=== PATIENT | female | born 1940 | race Caucasian/White ===

== ENCOUNTER 2017-03-02 12:04 | Emergency (ER) | payer OTHER ==
[~2017-03-02] VITALS: Ht 152.4 cm; Wt 62.1 kg
[~2017-03-02 12:04] MED LIST: ACET-1256 PO; AMLO-110 PO; ASPI-560 PO; CLC100 PO; CLX20 PO; CRAN1CAP15 PO; ERGO500037 PO; FSM70 PO; PSYL48.58 PO; SIMV20TA2 PO; TIMO0.2534 OPB; TRVOPS OPB
[2017-03-02 12:09] VITALS: TEMP 36.6; Ht 152.4 cm; Wt 62.1 kg
[2017-03-02] MEDS ORDERED: DOCU100C31 PO (12:38)
[2017-03-02] MEDS ORDERED: TIMO0.5S35 OPB (12:38)
[2017-03-02] MEDS ORDERED: TRAV0.00 OPB (12:38)
[2017-03-02] MEDS ORDERED: ALEN70TA2 PO (12:38)
--- NOTE | 2017-03-02 13:08 | DIAGNOSTIC IMAGING REPORT ---
L-SPINE MIN 4 VIEWS ROUTINE CLINICAL HISTORY: Low back pain status post trauma COMPARISON STUDY: CT scan dated 10/31/2010 FINDINGS: The bones are osteopenic. There are 5 lumbar type vertebral bodies present. There is marked disc space narrowing at the L5-S1 level. There are no subluxations. There is a superior endplate L1 compression deformity which has occurred since the prior 2010 CT scan. IMPRESSION: 1. Osteopenia 2. Mild superior endplate L1 compression fracture which has occurred since the prior 2010 study 2. Marked degenerative changes at the L5-S1 level. Electronically signed by: Emerson Payton M.D. 03/02/2017 1:07 PM Dictated Date/Time: 03/02/2017 1:05 PM
--- NOTE | 2017-03-02 13:16 | EMERGENCY ROOM VISIT NOTE ---
History Report prepared by Sabina: Yolanda Lawrence Under the Supervision of: Dr. Fernando Mahan M.D. First contact with patient: 12:17 Chief Complaint: BACK PAIN Stated Complaint: BACK PAIN, FELL History of Present Illness The patient is a 77 year old female who presents to the Emergency Room with complaints of constant lower back pain secondary to a fall occurring yesterday evening. The patient tripped yesterday and fell. She denies hitting her head or LOC. She has been experiencing lower back pain since this incident. She has been able to walk and states that her pain has slightly improved today. She is able to bend forward. The patient's pain is worse on the right side. She rates her pain as an 8/10 in severity. She has been putting Bengay on her back. The patient denies any other injury. She denies weakness, numbness, and urinary symptoms. Source of History: patient Onset: yesterday Position: back (lower) Symptom Intensity: 8/10 Timing: constant Modifying Factors (Relieving): other (Bengay) Associated Symptoms: No LOC, No headache, No urinary symptoms, No weakness, No numbness Review of Systems All systems have been listed, reviewed, and are negative other than those previously mentioned. Please see Additional Medical History Sheet. Past Medical & Surgical Medical Problems: (1) CVA (cerebral vascular accident) (2) Dyslipidemia (3) HTN (hypertension) (4) Osteoporosis Surgical Problems: (1) H/O: hysterectomy (2) History of appendectomy Family History Non-pertinent due to advanced age. Social History Smoking Status: Never Smoker Smokeless Tobacco Use: No Alcohol Use: none Occupation Status: unemployed Current/Historical Medications Scheduled Alendronate Sodium (Fosamax), 70 MG PO WK Aspirin (Ecotrin), 325 MG PO DAILY Docusate Sodium (Docusate Sodium), 200 MG PO DAILY Ergocalciferol (Vitamin D 12285 Unit), 50,000 UNIT PO WK Psyllium (Metamucil Original Textur), 1 DOSE PO DAILY Timolol Maleate (Ophth) (Timoptic), 1 DROPS OPB BID Travoprost (Travatan Z), 1 DROPS OPB HS Scheduled PRN Ibuprofen Tab (Motrin), 600 MG PO Q6H PRN for Pain Allergies Coded Allergies: No Known Allergies (Unverified , 10/31/10) Physical Exam Vital Signs Date Time Temp Pulse Resp B/P (MAP) Pulse Ox O2 Delivery O2 Flow Rate FiO2 03/02/17 13:45 58 18 140/79 96 Room Air 03/02/17 12:09 36.6 62 20 30/80 95 Room Air Physical Exam GENERAL: Patient awake, alert, oriented x 3. Patient follows commands. Patient does not appear toxic. Patient is adequately hydrated and well- nourished. SKIN: No erythema, pallor, cyanosis or rash HEENT: Normal head, pupils equal, reactive to light and accommodation. LUNGS: Clear to auscultation. No wheezes, no rales, no rhonchi. HEART: No murmurs. No gallops. No rubs ABDOMEN: No masses, no rebound, no hepatomegaly or splenomegaly. BACK: Vague tenderness in saji-lumbar area, no break in skin, no ecchymosis, no deformity seen. Patient is able to bend over. EXTREMITIES: No signs of trauma. No pedal or pretibial edema. No calf or thigh tenderness. NEUROLOGIC: Cranial nerves II-XII within normal limits. No gross motor sensory function deficits. Medical Decision & Procedures ER Provider Diagnostic Interpretation: Radiology results as stated below per my review and radiologist interpretation: L-SPINE MIN 4 VIEWS ROUTINE CLINICAL HISTORY: Low back pain status post trauma COMPARISON STUDY: CT scan dated 10/31/2010 FINDINGS: The bones are osteopenic. There are 5 lumbar type vertebral bodies present. There is marked disc space narrowing at the L5-S1 level. There are no subluxations. There is a superior endplate L1 compression deformity which has occurred since the prior 2010 CT scan. IMPRESSION: 1. Osteopenia 2. Mild superior endplate L1 compression fracture which has occurred since the prior 2010 study 2. Marked degenerative changes at the L5-S1 level. Electronically signed by: Emerson Payton M.D. 03/02/2017 1:07 PM Dictated Date/Time: 03/02/2017 1:05 PM Medications Administered Medications (Trade) Dose Ordered Sig/Lizet Route Start Time Stop Time Status Last Admin Dose Admin Ibuprofen (Motrin Tab) 600 mg NOW STAT PO 03/02/17 13:22 03/02/17 13:24 DC 03/02/17 13:46 600 MG ED Course 1217: Past medical records reviewed. The patient was evaluated in room A9B. A complete history and physical examination was performed. 1318: I reassessed the patient at this time. She is feeling better and resting comfortably. I discussed the results and treatment plan with the patient. I answered all pertaining questions that she had. She expressed understanding and verbalized agreement. The patient will be discharged home. 1322: Ibuprofen 600 mg PO Medical Decision Nurses notes reviewed. Medical history sheet reviewed. Differential diagnosis includes but is not limited to: fracture, subluxation, contusion, muscular strain/spasm. Patient has some tenderness on palpation over the lumbar spine. There are no deformities. X-rays were obtained revealing a compression fracture of L1. The patient has no vomiting or nausea. The fall occurred yesterday and she had she feels better today. I do not believe she requires a surgical intervention. The patient was encouraged to return if she is unable to move her bowels. She is currently on Colace. She also occasionally uses a laxative. The patient was given tramadol here and will continue that medication at home as needed. Medication Reconcilliation Current Medication List: was personally reviewed by me Blood Pressure Screening Patient's blood pressure: Elevated blood pressure Blood pressure disposition: Elevated BP felt to be situational Impression Primary Impression: Lumbar compression fracture Scribe Attestation The scribe's documentation has been prepared under my direction and personally reviewed by me in its entirety. I confirm that the note above accurately reflects all work, treatment, procedures, and medical decision making performed by me. Departure Information Dispostion Home / Self-Care Prescriptions Ibuprofen Tab (MOTRIN) 600 Mg Tab 600 MG PO Q6H Y for Pain, #20 TAB Prov: Fernando Mahan M.D. 03/02/17 Referrals Prabhjot Santiago M.D. (PCP) Forms HOME CARE DOCUMENTATION FORM, IMPORTANT VISIT INFORMATION Patient Instructions My [facility] [place] [employer] Additional Instructions Apply heat intermittently to your lower back of the next few days. 650 mg of Tylenol every 4 hours as needed for [id number] pain. 600 mg of Ibuprofen every 6 hours as needed for moderate to severe pain. Follow-up with your family physician this coming . Return here sooner if you're unable to move your bowels or if you begin vomiting. Problem Qualifiers Primary Impression: Lumbar compression fracture Encounter type: initial encounter Lumbar vertebra fracture level: L1 Fracture type: closed Qualified Codes: S32.010A - Wedge compression fracture of first lumbar vertebra, initial encounter for closed fracture
[2017-03-02] MEDS ORDERED: IBUPROFEN 600 MG TAB PO STA (13:22)
[2017-03-02] MEDS ORDERED: IBUP-1427 PO (13:24)
[2017-03-02 13:45] VITALS: BP 140/79; PULSE 58; O2SAT 96
== END 2017-03-02 14:09 | disposition home or self-care (01) ==
LOC: C.EDB 12:06 → C.EDA 14:09
DX: S32.019A Unspecified fracture of first lumbar vertebra, initial encounter for closed fracture (principal); W01.0XXA Fall on same level from slipping, tripping and stumbling without subsequent striking against object, initial encounter; I10 Essential (primary) hypertension; E78.5 Hyperlipidemia, unspecified; M81.0 Age-related osteoporosis without current pathological fracture; Z86.73 Personal history of transient ischemic attack (TIA), and cerebral infarction without residual deficits; Z90.710 Acquired absence of both cervix and uterus; Z98.890 Other specified postprocedural states; Z79.82 Long term (current) use of aspirin; Z79.899 Other long term (current) drug therapy

== ENCOUNTER → 2017-07-27 | Day surgery (SDC) | payer OTHER ==
[~2017-07-27] VITALS: Ht 147.3 cm; Wt 54.5 kg
[~2017-07-27] MED LIST changes: -ACET-1256 PO; -AMLO-110 PO; -CLC100 PO; -CLX20 PO; -CRAN1CAP15 PO; -ERGO500037 PO; -FSM70 PO; +FURO-85 PO; +LISI10TA PO; +MULT1CHW39 PO; +PRENTAB44 PO; -PSYL48.58 PO; +RANI150T85 PO; +SERT50TA PO; -SIMV20TA2 PO; +SODIUM CHLORIDE 0.9% 500ML 500 ML IV ONE; -TIMO0.2534 OPB; +TIMO0.5S35 OPB; +TRAV0.00 OPB; -TRVOPS OPB
--- NOTE | 2017-07-27 11:14 | Endo History and Physical ---
History & Physical Date of Service: Jul 27, 2017. Chief Complaint: Unintentional weight loss, Abnormal CT scan Referring Physician: JENY Cardona History of Present Illness 77 yo CF who presents for EGD secondary to unintentional weight loss and abnormal CT scan abdomen. Past Surgical History Hx Cardiac Surgery: No Hx Internal Defibrillator: No Hx Pacemaker: No Hx Abdominal Surgery: Yes (APPY) Hx of Implantable Prosthesis: No Hx Post-Op Nausea and Vomiting: No Hx Cancer Surgery: No Hx Thoracic Surgery: No Hx Orthopedic: No Hx Urinary Tract Surgery: No Family History Colon CA Social History Smoking Status: Former Smoker Hx Substance Use: No Hx Alcohol Use: No Allergies Uncoded Allergies: WILL BRING LIST, UNKOWN (Allergy, Unknown, PT WILL BRING LIST OF ALLERGIES , ? KNOW AT TIME OF INTERVIEW, 06/26/17) Current Medications Reported Home Medications Medications Dose Route/Sig Max Daily Dose Days Date Category Zoloft (Sertraline HCl) 50 Mg Tab 50 Mg PO HS 07/19/17 Reported Multivitamin Gummies Wome (Multiple Vitamins W/ Minerals) 1 Chw Chw 1 Dose PO QAM 06/26/17 Reported Complete ( Vit W/ Ferrous Fumara) 1 Tab Tab 1 Tab PO QAM 06/26/17 Reported Zantac (Ranitidine HCl) 150 Mg Tab 150 Mg PO DAILY PRN 06/26/17 Reported Prinivil (Lisinopril) 10 Mg Tab 10 Mg PO QAM 06/26/17 Reported Lasix (Furosemide) 20 Mg Tab 20 Mg PO QAM 06/26/17 Reported Travatan Z (Travoprost) 0.004 % Jose M 1 Drops OPB HS 03/02/17 Reported Timoptic (Timolol Maleate (Ophth)) 0.5 % Alma Rosa 1 Drops OPB BID 30 03/02/17 Reported Ecotrin (Aspirin) 325 Mg Tab 325 Mg PO QAM 02/26/16 Reported Vital Signs Weight (Kilograms): 0 Height (Feet): 5 Height (Inches): 4 Physical Exam General Appearance: WD/WN, no apparent distress Respiratory/Chest: Auscultation: breath sounds normal Cardiovascular: Heart Auscultation: RRR Abdomen: Bowel Sounds: normal Inspection & Palpation: soft, non-distended, no tenderness, guarding & rebound Assessment and Plan Assessment: 77 yo CF who presents for EGD secondary to unintentional weight loss and abnormal CT scan abdomen. Plan: Proceed with EGD.
[2017-07-27 11:40] VITALS: Ht 147.3 cm; Wt 54.5 kg
--- NOTE | 2017-07-27 12:24 | GI REPORT ---
Procedure Date: 07/27/2017 11:40 AM THIS REPORT HAS BEEN AMENDED Addendum Number: 1 Addendum Date: 07/27/2017 12:26:30 PM Will Add Protonix 40mg by mouth each morning 1/2 hour prior to breakfast. Procedure: Upper GI endoscopy Indications: Melena, Weight loss Medicines: Monitored Anesthesia Care Complications: No immediate complications. Estimated Blood Loss: Estimated blood loss: none. Procedure: Pre-Anesthesia Assessment: - Prior to the procedure, a History and Physical was performed, and patient medications and allergies were reviewed. The patient's tolerance of previous anesthesia was also reviewed. The risks and benefits of the procedure and the sedation options and risks were discussed with the patient. All questions were answered, and informed consent was obtained. Prior Anticoagulants: The patient has taken aspirin, last dose was 1 day prior to procedure. ASA Grade Assessment: III - A patient with severe systemic disease. After reviewing the risks and benefits, the patient was deemed in satisfactory condition to undergo the procedure. After obtaining informed consent, the endoscope was passed under direct vision. Throughout the procedure, the patient's blood pressure, pulse, and oxygen saturations were monitored continuously. The scope was introduced through the mouth, and advanced to the second part of duodenum. The upper GI endoscopy was accomplished without difficulty. The patient tolerated the procedure well. Findings: A moderate Schatzki ring (acquired) was found at the gastroesophageal junction. A TTS dilator was passed through the scope. Dilation with a 15-16.5-18 mm balloon dilator was performed to 18 mm. The dilation site was examined and showed moderate improvement in luminal narrowing. A small hiatal hernia was present. Localized moderate inflammation characterized by erythema was found in the gastric antrum. Biopsies were taken with a cold forceps for histology. Two non-bleeding superficial gastric ulcers with no stigmata of bleeding were found in the gastric antrum. The largest lesion was 3 mm in largest dimension. The examined duodenum was normal. Impression: - Moderate Schatzki ring. Dilated. - Small hiatal hernia. - Gastritis. Biopsied. - Non-bleeding gastric ulcers with no stigmata of bleeding. - Normal examined duodenum. Recommendation: - Resume previous diet. - Continue present medications. - Await pathology results. - Return to primary care physician as previously scheduled. Donaldo Tolliver, DO 07/27/2017 12:23:38 PM This report has been signed electronically. Note Initiated On: 07/27/2017 11:40 AM I attest to the content of the Intraoperative Record and orders documented therein, exceptions below Donaldo Tolliver, DO 07/27/2017 12:26:48 PM This report has been signed electronically.
--- NOTE | 2017-07-27 12:29 | Discharge Instructions ---
Endoscopy Patient Instructions Date / Procedure(s) Performed Jul 27, 2017. EGD Allergy Information Uncoded Allergies: WILL BRING LIST, UNKOWN (Allergy, Unknown, PT WILL BRING LIST OF ALLERGIES , ? KNOW AT TIME OF INTERVIEW, 06/26/17) Discharge Date / Findings Jul 27, 2017. Gastric ulcer Gastritis s/p biopsies Hiatal hernia Schatzki's Ring s/p dilation Medication Instructions Stopped Medication(s): 325 mg Aspirin last taken on 07/26/17 1) Start Protonix 40mg by mouth each morning 1/2 hour prior to breakfast. 2) OK to resume all medications today as prescribed Reported Home Medications Medications Dose Route/Sig Max Daily Dose Days Date Category Zoloft (Sertraline HCl) 50 Mg Tab 50 Mg PO HS 07/19/17 Reported Multivitamin Gummies Wome (Multiple Vitamins W/ Minerals) 1 Chw Chw 1 Dose PO QAM 06/26/17 Reported Complete ( Vit W/ Ferrous Fumara) 1 Tab Tab 1 Tab PO QAM 06/26/17 Reported Zantac (Ranitidine HCl) 150 Mg Tab 150 Mg PO DAILY PRN 06/26/17 Reported Prinivil (Lisinopril) 10 Mg Tab 10 Mg PO QAM 06/26/17 Reported Lasix (Furosemide) 20 Mg Tab 20 Mg PO QAM 06/26/17 Reported Travatan Z (Travoprost) 0.004 % Jose M 1 Drops OPB HS 03/02/17 Reported Timoptic (Timolol Maleate (Ophth)) 0.5 % Alma Rosa 1 Drops OPB BID 30 03/02/17 Reported Ecotrin (Aspirin) 325 Mg Tab 325 Mg PO QAM 02/26/16 Reported Provider Instructions Activity Restrictions - No exercising or heavy lifting for 24 hours. - Do not drink alcohol the day of the procedure. - Do not drive a car or operate machinery until the day after the procedure. - Do not make any important decisions or sign important papers in 24 hours after the procedure. Following Day: - Return to full activity which may include returning to work/school. Diet Start your diet with liquids and light foods (jello, soup, juice, toast). Then eat your usual diet if not nauseated. Treatment For Common After Affects For mild abdominal pain, bloating, or excessive gas: - Rest - Eat lightly - Lie on right side Follow-Up Information Follow-up with Abiola Shen as scheduled Anesthesia Information What You Should Know You have had a procedure that required some medicine to reduce anxiety and discomfort. This treatment is called moderate sedation. After receiving the treatment, you may be sleepy, but you will be able to breathe on your own. The effects of the treatment may last for several hours. Follow these instructions along with Activity/Diet recommendations noted above: * Do NOT do anything where dizziness or clumsiness would be dangerous. * Rest quietly at home today, then you can be up and about tomorrow. * Have a responsible person stay with you the rest of today. * You may have had an I.V. today. If so, you may take the dressing off later today. Recommendations Call your doctor if: * Trouble breathing * Continuous vomiting for more than 24 hours * Temperature above 101 degrees * Severe abdominal pain or bloating * Pain not relieved by pain medicine ordered * There is increased drainage or redness from any incision * A large amount of rectal bleeding greater than 2-3 tablespoons. (If you had a polyp/s removed or have hemorrhoids, a small amount of blood - from the rectum is to be expected.) * You have any unanswered questions or concerns. IN THE EVENT OF A SERIOUS EMERGENCY, GO TO THE NEAREST EMERGENCY ROOM Your discharge instructions were prepared by provider Donaldo Tolliver. Patient Instructions Signature Page Elsie Clayton Patient (or Guardian) Signature/Date: I have read and understand the instructions given to me by my caregivers. Caregiver/RN/Doctor Signature/Date: The above-named patient and/or guardian has received patient instructions on this date. + Original Patient Signature Page (only) stays with chart. Please make copy for patient.
--- NOTE | 2017-07-27 12:38 | Anesthesiology Progress Note ---
Anesthesia Post Op Note Date & Time Jul 27, 2017 at 12:38 Vital Signs Pain Intensity: 0 Vital Signs Past 12 Hours Date Time Temp Pulse Resp B/P (MAP) Pulse Ox O2 Delivery O2 Flow Rate FiO2 07/27/17 12:33 56 20 159/87 (111) 98 Room Air 07/27/17 12:18 66 24 137/71 (93) 97 Room Air 07/27/17 11:24 36.6 63 16 147/95 (112) 96 Room Air Notes Mental Status: alert / awake / arousable, participated in evaluation Pt Amnestic to Procedure: Yes Nausea / Vomiting: adequately controlled Pain: adequately controlled Airway Patency, RR, SpO2: stable & adequate BP & HR: stable & adequate Hydration State: stable & adequate Anesthetic Complications: no major complications apparent
[2017-07-27 12:48] VITALS: BP 161/83; PULSE 57; O2SAT 98
== END | disposition home or self-care (01) ==
LOC: C.GI 10:29
PROVIDERS: ATTEND Internal Medicine
DX: R63.4 Abnormal weight loss (principal); K22.2 Esophageal obstruction; K25.9 Gastric ulcer, unspecified as acute or chronic, without hemorrhage or perforation; K44.9 Diaphragmatic hernia without obstruction or gangrene; Z80.0 Family history of malignant neoplasm of digestive organs; G47.33 Obstructive sleep apnea (adult) (pediatric); K21.9 Gastro-esophageal reflux disease without esophagitis; M19.90 Unspecified osteoarthritis, unspecified site; M81.0 Age-related osteoporosis without current pathological fracture; F32.9 Major depressive disorder, single episode, unspecified; F41.9 Anxiety disorder, unspecified; H40.9 Unspecified glaucoma; Z90.89 Acquired absence of other organs; Z87.891 Personal history of nicotine dependence; Z86.73 Personal history of transient ischemic attack (TIA), and cerebral infarction without residual deficits; Z79.82 Long term (current) use of aspirin

== ENCOUNTER → 2017-09-07 | Day surgery (SDC) | payer OTHER ==
[2017-09-05 09:34] VITALS: Ht 162.6 cm; Wt 54.5 kg
[~2017-09-07] VITALS: Ht 162.6 cm; Wt 54.5 kg
[~2017-09-07] MED LIST changes: +DOCU100C31 PO; +PANT40TA PO; +PSYL58.636 PO; -SODIUM CHLORIDE 0.9% 500ML 500 ML IV ONE; +TIMO-31 OPB; -TIMO0.5S35 OPB
--- NOTE | 2017-09-07 11:26 | Endo History and Physical ---
History & Physical Date of Service: September 07, 2017. Chief Complaint: dysphagia,history gastric ulcer Referring Physician: Dr. Edwardo Hua,[facility] History of Present Illness 77 yo CF who presents for EGD secondary to dysphagia and history of gastric ulcer. Past Surgical History Hx Cardiac Surgery: No Hx Internal Defibrillator: No Hx Pacemaker: No Hx Abdominal Surgery: Yes (APPY, HYSTER) Hx of Implantable Prosthesis: No Hx Post-Op Nausea and Vomiting: No Hx Cancer Surgery: No Hx Thoracic Surgery: No Hx Orthopedic: No Hx Urinary Tract Surgery: No Family History Colon CA Social History Smoking Status: Former Smoker Hx Substance Use: No Hx Alcohol Use: No Allergies Uncoded Allergies: SOAPS (Allergy, Unknown, RASH, 09/05/17) Current Medications Reported Home Medications Medications Dose Route/Sig Max Daily Dose Days Date Category Protonix (Pantoprazole Sodium) 40 Mg Tab 1 Tab PO DAILY 30 09/05/17 Reported Metamucil Fiber (Psyllium) 51.7 % Jordin 1 Pkt PO DAILY 09/05/17 Reported Docusate Sodium 100 Mg Cap 2 Cap PO HS 30 09/05/17 Reported Zoloft (Sertraline HCl) 50 Mg Tab 50 Mg PO HS 07/19/17 Reported Multivitamin Gummies Wome (Multiple Vitamins W/ Minerals) 1 Chw Chw 1 Dose PO QAM 06/26/17 Reported Complete ( Vit W/ Ferrous Fumara) 1 Tab Tab 1 Tab PO QAM 06/26/17 Reported Zantac (Ranitidine HCl) 150 Mg Tab 150 Mg PO DAILY PRN 06/26/17 Reported Prinivil (Lisinopril) 10 Mg Tab 10 Mg PO QAM 06/26/17 Reported Lasix (Furosemide) 20 Mg Tab 20 Mg PO QAM 06/26/17 Reported Travatan Z (Travoprost) 0.004 % Jose M 1 Drops OPB HS 03/02/17 Reported Timoptic (Timolol Maleate (Ophth)) 0.5 % Alma Rosa 1 Drops OPB BID 30 03/02/17 Reported Ecotrin (Aspirin) 325 Mg Tab 325 Mg PO QAM 02/26/16 Reported Vital Signs Weight (Kilograms): 54.55 Height (Feet): 5 Height (Inches): 4 Date Time Temp Pulse Resp B/P (MAP) Pulse Ox O2 Delivery O2 Flow Rate FiO2 09/07/17 10:53 36.6 57 16 146/86 (106) 96 Room Air Physical Exam General Appearance: WD/WN, no apparent distress Respiratory/Chest: Auscultation: breath sounds normal Cardiovascular: Heart Auscultation: RRR Abdomen: Bowel Sounds: normal Inspection & Palpation: soft, non-distended, no tenderness, guarding & rebound Assessment and Plan Assessment: 77 yo CF who presents for EGD secondary to dysphagia and history of gastric ulcer. Plan: Proceed with EGD.
--- NOTE | 2017-09-07 11:49 | Discharge Instructions ---
Endoscopy Patient Instructions Date / Procedure(s) Performed September 07, 2017. EGD Allergy Information Uncoded Allergies: SOAPS (Allergy, Unknown, RASH, 09/05/17) Discharge Date / Findings September 07, 2017. Schatzki's ring s/p dilation Hiatal hernia Medication Instructions Stopped Medication(s): took ASA yesterday OK to resume all medications today as prescribed Reported Home Medications Medications Dose Route/Sig Max Daily Dose Days Date Category Protonix (Pantoprazole Sodium) 40 Mg Tab 1 Tab PO DAILY 30 09/05/17 Reported Metamucil Fiber (Psyllium) 51.7 % Jordin 1 Pkt PO DAILY 09/05/17 Reported Docusate Sodium 100 Mg Cap 2 Cap PO HS 30 09/05/17 Reported Zoloft (Sertraline HCl) 50 Mg Tab 50 Mg PO HS 07/19/17 Reported Multivitamin Gummies Wome (Multiple Vitamins W/ Minerals) 1 Chw Chw 1 Dose PO QAM 06/26/17 Reported Complete ( Vit W/ Ferrous Fumara) 1 Tab Tab 1 Tab PO QAM 06/26/17 Reported Zantac (Ranitidine HCl) 150 Mg Tab 150 Mg PO DAILY PRN 06/26/17 Reported Prinivil (Lisinopril) 10 Mg Tab 10 Mg PO QAM 06/26/17 Reported Lasix (Furosemide) 20 Mg Tab 20 Mg PO QAM 06/26/17 Reported Travatan Z (Travoprost) 0.004 % Jose M 1 Drops OPB HS 03/02/17 Reported Timoptic (Timolol Maleate (Ophth)) 0.5 % Alma Rosa 1 Drops OPB BID 30 03/02/17 Reported Ecotrin (Aspirin) 325 Mg Tab 325 Mg PO QAM 02/26/16 Reported Provider Instructions Activity Restrictions - No exercising or heavy lifting for 24 hours. - Do not drink alcohol the day of the procedure. - Do not drive a car or operate machinery until the day after the procedure. - Do not make any important decisions or sign important papers in 24 hours after the procedure. Following Day: - Return to full activity which may include returning to work/school. Diet Start your diet with liquids and light foods (jello, soup, juice, toast). Then eat your usual diet if not nauseated. Treatment For Common After Affects For mild abdominal pain, bloating, or excessive gas: - Rest - Eat lightly - Lie on right side Follow-Up Information Follow-up with Dr. Edwardo Hua,[facility] as scheduled Anesthesia Information What You Should Know You have had a procedure that required some medicine to reduce anxiety and discomfort. This treatment is called moderate sedation. After receiving the treatment, you may be sleepy, but you will be able to breathe on your own. The effects of the treatment may last for several hours. Follow these instructions along with Activity/Diet recommendations noted above: * Do NOT do anything where dizziness or clumsiness would be dangerous. * Rest quietly at home today, then you can be up and about tomorrow. * Have a responsible person stay with you the rest of today. * You may have had an I.V. today. If so, you may take the dressing off later today. Recommendations Call your doctor if: * Trouble breathing * Continuous vomiting for more than 24 hours * Temperature above 101 degrees * Severe abdominal pain or bloating * Pain not relieved by pain medicine ordered * There is increased drainage or redness from any incision * A large amount of rectal bleeding greater than 2-3 tablespoons. (If you had a polyp/s removed or have hemorrhoids, a small amount of blood - from the rectum is to be expected.) * You have any unanswered questions or concerns. IN THE EVENT OF A SERIOUS EMERGENCY, GO TO THE NEAREST EMERGENCY ROOM Your discharge instructions were prepared by provider Donaldo Tolliver. Patient Instructions Signature Page Elsie Clayton Patient (or Guardian) Signature/Date: I have read and understand the instructions given to me by my caregivers. Caregiver/RN/Doctor Signature/Date: The above-named patient and/or guardian has received patient instructions on this date. + Original Patient Signature Page (only) stays with chart. Please make copy for patient.
--- NOTE | 2017-09-07 12:10 | GI REPORT ---
Patient Name: Elsie Clayton Procedure Date: 09/07/2017 11:31 AM Date of : 1940 Admit Type: Outpatient Age: 77 Gender: Female Attending MD: Donaldo Tolliver DO Procedure: Upper GI endoscopy Providers: Donaldo Tolliver DO Referring MD: Abiola Shen Indications: Dysphagia, Follow-up of acute gastric ulcer Medicines: Monitored Anesthesia Care Complications: No immediate complications. Estimated Blood Loss: Estimated blood loss: none. Procedure: Pre-Anesthesia Assessment: - Prior to the procedure, a History and Physical was performed, and patient medications and allergies were reviewed. The patient's tolerance of previous anesthesia was also reviewed. The risks and benefits of the procedure and the sedation options and risks were discussed with the patient. All questions were answered, and informed consent was obtained. Prior Anticoagulants: The patient has taken aspirin, last dose was 1 day prior to procedure. ASA Grade Assessment: III - A patient with severe systemic disease. After reviewing the risks and benefits, the patient was deemed in satisfactory condition to undergo the procedure. After obtaining informed consent, the endoscope was passed under direct vision. Throughout the procedure, the patient's blood pressure, pulse, and oxygen saturations were monitored continuously. The scope was introduced through the mouth, and advanced to the second part of duodenum. The upper GI endoscopy was accomplished without difficulty. The patient tolerated the procedure well. Findings: A mild Schatzki ring (acquired) was found at the gastroesophageal junction. A TTS dilator was passed through the scope. Dilation with an 18-19-20 mm balloon dilator was performed to 20 mm. The dilation site was examined and showed complete resolution of luminal narrowing. A small hiatal hernia was present. The examined duodenum was normal. Impression: - Mild Schatzki ring. Dilated. - Small hiatal hernia. - Normal examined duodenum. - No specimens collected. Recommendation: - Resume previous diet. - Continue present medications. - Repeat upper endoscopy PRN for retreatment. - Return to primary care physician as previously scheduled. Donaldo Tolliver DO 09/07/2017 12:10:07 PM This report has been signed electronically. Note Initiated On: 09/07/2017 11:31 AM Number of Addenda: 0 I attest to the content of the Intraoperative Record and orders documented therein, exceptions below {[id number]}
[2017-09-07 12:16] VITALS: BP 174/83; PULSE 60; O2SAT 99
--- NOTE | 2017-09-07 13:06 | Anesthesiology Progress Note ---
Anesthesia Post Op Note Date & Time September 07, 2017 at 13:06 Vital Signs Pain Intensity: 0 Vital Signs Past 12 Hours Date Time Temp Pulse Resp B/P (MAP) Pulse Ox O2 Delivery O2 Flow Rate FiO2 09/07/17 12:16 60 18 174/83 (113) 99 Room Air 09/07/17 12:01 63 18 170/80 (110) 96 Room Air 09/07/17 11:46 60 16 123/64 (83) 96 Room Air 09/07/17 10:53 36.6 57 16 146/86 (106) 96 Room Air Notes Mental Status: alert / awake / arousable, participated in evaluation Pt Amnestic to Procedure: Yes Nausea / Vomiting: adequately controlled Pain: adequately controlled Airway Patency, RR, SpO2: stable & adequate BP & HR: stable & adequate Hydration State: stable & adequate Anesthetic Complications: no major complications apparent
== END | disposition home or self-care (01) ==
LOC: C.GI 10:21
PROVIDERS: ATTEND Internal Medicine
DX: K22.2 Esophageal obstruction (principal); K44.9 Diaphragmatic hernia without obstruction or gangrene; R13.10 Dysphagia, unspecified; Z80.0 Family history of malignant neoplasm of digestive organs; Z87.891 Personal history of nicotine dependence; G47.33 Obstructive sleep apnea (adult) (pediatric); I10 Essential (primary) hypertension; E78.5 Hyperlipidemia, unspecified; K21.9 Gastro-esophageal reflux disease without esophagitis; M19.90 Unspecified osteoarthritis, unspecified site; Z86.73 Personal history of transient ischemic attack (TIA), and cerebral infarction without residual deficits; F41.9 Anxiety disorder, unspecified; F32.9 Major depressive disorder, single episode, unspecified; H40.9 Unspecified glaucoma

== ENCOUNTER → 2017-09-14 | Outpatient (CLI) | payer OTHER ==
[~2017-09-14] MED LIST changes: +LIDOCAINE HCL 2% 2 ML VIAL (20MG/ML) ONE; +PROPOFOL IV EMULSION 10 MG/ML 20 ML VIAL ONE
--- NOTE | 2017-09-14 16:02 | DIAGNOSTIC IMAGING REPORT ---
ABD/PELVIS ORAL CONT ONLY CLINICAL HISTORY: 77 years-old Female presenting with LOSS OF Appetite, unintentional WEIGHT LOSS. TECHNIQUE: Multidetector CT of the abdomen and pelvis was performed without the use of intravenous contrast. IV contrast: None. A dose lowering technique was used consistent with the principles of ALARA (as low as reasonably achievable). COMPARISON: 10/31/2010. CT DOSE (mGy.cm): The estimated cumulative dose is 258.96 mGy.cm. 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 Lung bases: Mosaic attenuation at the lung bases suggest small airways disease. Limited nodular opacities in the right middle lobe. These are new since 2010. Normal heart size. Coronary artery and aortic valve calcification. No pericardial or pleural effusion. Liver: Normal morphology. Normal density. Subcentimeter hypodensity noted in the right hepatic lobe, indeterminate but likely hepatic cyst or hamartoma. Biliary: No gross biliary ductal dilatation allowing for noncontrast technique. Normal gallbladder. Pancreas: Normal noncontrast appearance. Spleen: Normal noncontrast appearance. Adrenal glands: Normal noncontrast appearance. Kidneys and ureters: Normal noncontrast appearance. No nephrolithiasis. No hydronephrosis. Normal ureters. Bladder: Incompletely evaluated secondary to underdistention. Pelvic organs: Uterus surgically absent. No adnexal masses. Bowel: Diverticulosis of the sigmoid colon. No focal wall thickening or pericolonic fat infiltration. No bowel obstruction. Peritoneal cavity: No free fluid or intraperitoneal gas. Lymph nodes: No gross lymphadenopathy allowing for noncontrast technique. Vasculature: Atherosclerosis of the normal caliber abdominal aorta. Abdominal wall: Postsurgical changes of the midline anterior and from the local abdominal wall. Musculoskeletal: Degenerative changes of the spine. Osteopenia. Moderate compression deformity of L1 with approximately 50% anterior height loss. Slight retropulsion of the superior portion of the vertebral body resulting in mild effacement of the ventral spinal canal. IMPRESSION: 1. Nodular opacities in the right middle lobe, only partially visualized and new since 2010. Consider dedicated chest imaging as clinically appropriate. A chronic inflammatory or infectious etiology cannot be excluded. 2. Small airways disease. 3. Diverticulosis. No evidence of diverticulitis. 4. Osteopenia with age-indeterminate compression fracture of L1. This is new since 2010. Electronically signed by: Rafael Russo M.D. 09/14/2017 4:01 PM Dictated Date/Time: 09/14/2017 3:52 PM
== END | disposition home or self-care (01) ==
LOC: C.CTS 13:48
PROVIDERS: ATTEND Registered Nurse
DX: R63.0 Anorexia (principal); R63.4 Abnormal weight loss; K57.90 Diverticulosis of intestine, part unspecified, without perforation or abscess without bleeding; M85.88 Other specified disorders of bone density and structure, other site

== ENCOUNTER → 2017-09-21 | Outpatient (CLI) | payer OTHER ==
[~2017-09-21] MED LIST changes: -LIDOCAINE HCL 2% 2 ML VIAL (20MG/ML) ONE; +OPTIRAY 320 IV PRN; -PROPOFOL IV EMULSION 10 MG/ML 20 ML VIAL ONE
--- NOTE | 2017-09-21 11:22 | DIAGNOSTIC IMAGING REPORT ---
CT (CHEST) THORAX WITH CLINICAL HISTORY: 77 years-old Female presenting with R93.[address] of the [id number] Lung [id number], follow-up. TECHNIQUE: Multidetector CT imaging of the chest was performed after the administration of intravenous contrast. IV contrast: 120 mL of Optiray 320. A dose lowering technique was used consistent with the principles of ALARA (as low as reasonably achievable). COMPARISON: CT of abdomen pelvis from 09/14/2017. CT DOSE (mGy.cm): The estimated cumulative dose is 146.04 mGycm. 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 On soft tissue windows, normal thyroid and thoracic inlet. No axillary, supraclavicular, hilar, or mediastinal lymphadenopathy. Atherosclerosis of the aorta. Normal heart size. Coronary artery and aortic valve calcification. No pericardial or pleural effusion. Upper abdomen normal. On lung windows, trace pleural-parenchymal scarring at the lung apices. Redemonstration of irregular nodular opacities in the right middle lobe, which are primarily peripheral and randomly distributed. Additional focus of similar appearing irregular randomly distributed solid nodularity in the posterior segment of the right upper lobe. The largest discrete irregular nodule measures 9 mm (series 4 image 110). Calcified granuloma noted in the right lower lobe. Mosaic attenuation noted, which may suggest small airways disease. Solid peripheral 3 mm nodule in the left upper lobe (series 4 image 102). Central airways patent. On bone windows, degenerative changes of the spine. IMPRESSION: 1. Multifocal irregular nodules in the lung with a cluster noted in the right middle lobe, the posterior segment of the right upper lobe, and left upper lobe. An atypical infectious or inflammatory etiology is favored, however, given the discrete irregular 9 mm nodule in the right upper lobe, follow-up should be obtained. Please refer to below summary of Fleischner Society 2017 recommendations for follow-up of incidental CT nodules (H Bridget et al. Guidelines for management of incidental pulmonary nodules detected on CT images: From the Fleischner Society 2017. Radiology 2017; 284: 228-243.) SOLID NODULES Single nodule; size < 6 mm * Low risk patients: No routine follow-up * High risk patients: Optional CT at 12 months Single nodule; size 6-8 mm * Low risk patients: CT at 6-12 months, then consider CT at 18-24 months * High risk patients: CT at 6-12 months, then at 18-24 months Single nodule; size > 8 mm * Either low or high risk patients: Considered CT at 3 months, PET/CT, or tissue sampling Multiple nodules; size < 6 mm * Low risk patients: No routine follow up * High risk patients: Optional CT at 12 months Multiple nodules; size 6-8 mm * Low risk patients: CT at 3-6 months, then consider CT at 18-24 months * High risk patients: CT at 3-6 months, then at 18-24 months Multiple nodules; size > 8 mm * Low risk patients: CT at 3-6 months, then consider at 18-24 months * High risk patients: CT at 3-6 months, then at 18-24 months SUBSOLID NODULES Single ground-glass nodule * Nodule size < 6 mm: No routine follow-up * Nodule size > or = 6 mm: CT at 6-12 months to confirm persistence, then CT every 2 years until 5 years Single part-solid nodule * Nodule size < 6 mm: No routine follow-up * Nodules size > or = 6 mm: CT at 3-6 months to confirm persistence. If unchanged and solid component remains < 6 mm, annual CT should be performed for 5 years Multiple nodules * Nodule size < 6 mm: CT at 3-6 months. If stable, consider CT at 2 and 4 years. * Nodules size > or = 6 mm: CT at 3-6 months. Subsequent management based on the most suspicious nodule(s) NOTE: 1) These guidelines apply to incidental nodules. These guidelines do NOT apply to patients younger than 35 years, immunocompromised patients, or patients with cancer. 2) Risk categories: * Low risk patients: Minimal or absent history of smoking and/or other known risk factors * High risk patients: History of smoking, exposure to other carcinogens, emphysema, fibrosis, upper lobe location, family history of lung cancer, etc. 3) If a nodule up to 8 mm is partly solid or is ground glass, further follow-up is required after 24 months to exclude possible slow growing adenocarcinoma. Electronically signed by: Rafael Russo M.D. 09/21/2017 11:21 AM Dictated Date/Time: 09/21/2017 11:09 AM
== END | disposition home or self-care (01) ==
LOC: C.CTS 10:28
PROVIDERS: ATTEND Registered Nurse
DX: R91.1 Solitary pulmonary nodule (principal); R93.5 Abnormal findings on diagnostic imaging of other abdominal regions, including retroperitoneum

== ENCOUNTER → 2017-12-13 | Outpatient (CLI) | payer OTHER ==
[~2017-12-13] MED LIST changes: -OPTIRAY 320 IV PRN
--- NOTE | 2017-12-13 12:43 | DIAGNOSTIC IMAGING REPORT ---
CHEST CT WITH CONTRAST CT DOSE: 151.52 mGycm HISTORY: Follow-up LUNG NODULE TECHNIQUE: Multiaxial CT images of the chest were performed following the intravenous administration of contrast. A dose lowering technique was utilized adhering to the principles of ALARA. COMPARISON: Chest CT 09/21/2017. FINDINGS: The central airways are patent. No pleural effusions. No pneumothorax. Mild emphysema. Stable 3 mm subpleural nodule within the left upper lobe on image 106. Irregular nodule within the right upper lobe on image 110. Slightly decreased in size. This currently measures 7 mm, previous measuring 9 mm. Small cluster of tree-in-bud nodular opacities within the base of the right middle lobe has slightly improved. No suspicious lytic or blastic osseous lesions. No change in the old mild superior endplate compression deformity at T2, T3, T4. There is a 6 mm nodule within the right thyroid lobe. No mediastinal or hilar lymphadenopathy. Normal caliber thoracic aorta. Mildly tortuous descending thoracic aorta. The central pulmonary arteries are patent. The heart is borderline enlarged. The visualized liver, spleen, adrenal glands are unremarkable. IMPRESSION: 1. Slight decrease in size in the 7 mm irregular nodule within the right upper lobe. An additional [address] follow is recommended for further evaluation. 2. Slight improvement in the tree-in-bud nodular opacities within the base of the right middle lobe. This favors resolving inflammatory/infectious change. 3. Additional stable findings as described above. Electronically signed by: Orlando Guadarrama M.D. 12/13/2017 12:41 PM Dictated Date/Time: 12/13/2017 12:31 PM
== END | disposition home or self-care (01) ==
LOC: C.CTS 10:37
PROVIDERS: ATTEND Physician Assistant
DX: R91.1 Solitary pulmonary nodule (principal)

== ENCOUNTER 2020-08-03 17:39 | Observation (INO) ==
[2020-08-03] MEDS ORDERED: SODIUM CHLORIDE 0.9% 1000ML 1,000 ML IV ONE (19:20)
[2020-08-03] MEDS ORDERED: ACETAMINOPHEN 1,000 MG/100 ML VIAL IV STA (19:20)
--- NOTE | 2020-08-03 19:58 | XRay Report ---
XR chest 1V portable HISTORY: Atypical Chest Pain COMPARISON: Chest 06/13/2020. FINDINGS: The lungs are hyperexpanded with apical predominant emphysematous changes. There is levosco liosis of the thoracolumbar spine, unchanged. There is a tortuous thoracic aorta. The heart is mildly enlarged. No focal lung consolidations to suggest pneumonia. No evidence for pulmonary edema. The christal lamine are osteopenic. IMPRESSION: No significant change compared to the prior study. No acute process. ACT 112: Negative or not required by law. Electronically signed by: Orlando Guadarrama M.D. 08/03/2020 7:57 PM
[2020-08-03 20:12] LABS: Basophils # (auto) 0.01 K/uL (0-0.2); Basophils % (auto) 0.2 %; Eosinophils # (auto) 0.16 K/uL (0-0.5); Eosinophils % (auto) 2.8 %; Hematocrit (blood only) 39.6 % (37-47); Hemoglobin 13.5 g/dL (12.0-16.0); Immature Granulocytes # (auto) 0.01 K/uL (0.00-0.02); Immature Granulocytes % (auto) 0.2 %; Lymphocytes # (auto) 2.05 K/uL (1.2-3.4); Lymphocytes % (auto) 35.3 %; Mean Corpuscular Hemoglobin 29.9 pg (25-34); Mean Corpuscular Hgb Conc 34.1 g/dL (32-36); Mean Corpuscular Volume 87.6 fL (80-100); Mean Platelet Volume 9.9 fL (7.4-10.4); Monocytes # (auto) 0.39 K/uL (0.11-0.59); Monocytes % (auto) 6.7 %; Neutrophils # (auto) 3.18 K/uL (1.4-6.5); Neutrophils % (auto) 54.8 %; Platelet Count 266 K/uL (130-400); RDW Coefficient of Variation 12.7 % (11.5-14.5); RDW Standard Deviation 40.8 fL (36.4-46.3); Red Blood Count 4.52 M/uL (4.2-5.4)
[2020-08-03 20:29] LABS: Alanine Aminotransferase 19 U/L (12-78); Albumin Level 3.7 gm/dl (3.4-5.0); Aspartate Aminotransferase 20 U/L (15-37); BUN Creatinine Ratio 21.8 (10-20); Blood Urea Nitrogen 14 mg/dl (7-18); Calcium 8.7 mg/dl (8.5-10.1); Carbon Dioxide 29 mmol/L (21-32); Chloride 107 mmol/L (98-107); Est GFR (Non-African American) 83.7; Glucose 89 mg/dl (70-99); Lipase 216 U/L (73-393); Magnesium 2.1 mg/dl (1.8-2.4); Potassium 3.6 mmol/L (3.5-5.1); Sodium 140 mmol/L (136-145)
[2020-08-03 20:45] LABS: Albumin Globulin Ratio 1.2 (0.9-2); Alkaline Phosphatase 106 U/L (45-117); Bilirubin,Total 0.6 mg/dl (0.2-1); Globulin 3.2 gm/dl (2.5-4.0); Phosphorus 3.4 mg/dl (2.5-4.9); Thyroid Stimulating Hormone 0.768 uIu/ml (0.300-4.500); Total Protein 6.9 gm/dl (6.4-8.2); Troponin I 0.092 ng/ml (0-0.045)
--- NOTE | 2020-08-03 21:04 | Emergency Department Note ---
Impression & Plan Elevated troponin, Headache, Hypertensive urgency, Dizziness ED Provider Note NAME: ASHOK REA AGE: 80 SEX: F ARRIVES VIA: Walk-In INFORMANT: Patient, Daughter ED PROVIDER(S): Roland Winslow MD CHIEF COMPLAINT: Headache, dizziness. PLAN: Disposition: Admit MEDICAL DECISION MAKING: The patient is a pleasant 80-year-old woman with a past medical history of dementia, history of CVA, hypertension, hyperlipidemia, ALEXA, GERD, anxiety who presents emergency department, by her daughter with concern for symptoms of headache with "pain around her eyes which she feels could be related to congestion and then difficulty with balance as well as concern about fluid in her legs. The patient and her daughter at the bedside are poor historians as they report that she took Tylenol and felt her symptoms improved. They report they contacted their doctor and were referred to the emergency department. Prior to the patient's symptoms today she reports she has been feeling healthy denies any recent fevers, chills, cough, congestion, GI or symptoms. Denies any known COVID-19 exposures. On arrival the patient is relatively well-appearing in no acute distress, afebrile with hypertension 200s/90s and vital signs otherwise stable. She appears clinically dry. She has no focal neurologic deficits moving all extremities equally. She does have some mild unsteadiness when standing but the patient's daughter reports this is normal for her. Her speech is fluent. EKG without overt acute ischemia. Chest x-ray negative for acute cardiopulmonary process. WBC, H/H and platelets within normal limits. Chemistry without metabolic acidosis. BUN/creatinine> 20 consistent with the patient's clinically dry appearance. Electrolytes LFTs unremarkable. Troponin slightly elevated at 0.092 without prior values for comparison. Possibly related to patient's hypertension. Per preliminary STATReport, CT head negative for ICH or ischemia though nonacute appearing lacunar infarct is noted. CTA head and neck negative for severe narrowing or occlusion of large vessels. Upon re-evaluation the patient did feel improved after IVF hydration and apap. BP somewhat improved. However, given her symptoms in the setting of mildly elevated troponin she did agreed to proceed with admission. Case was discussed with Dr. Aranda, [facility], who will evaluate the patient for admission. Triage Nursing notes reviewed and agree them. Prior medical records reviewed Vital Signs: reviewed and remarkable for hypertension. Differential diagnosis: Infection, dehydration, metabolic abnormality, hypo/hyperglycemia, electrolyte disturbance, anemia, hypoxia, cardiac sources, intracerebral event, toxicologic, neurologic, as well as other pathologies. ER treatment provided: See below. Diagnostics interpreted by me: ECG: Sinus bradycardia, 56 bpm, no ectopy, no overt ST elevation or depression, QTC 441, QRS 72. Cardiac Monitoring: An order for continuous cardiac monitoring was placed and demonstrated Sinus bradycardia, 56 bpm, no ectopy. Laboratory studies: See below Imaging studies: XR chest 1V portable HISTORY: Atypical Chest Pain COMPARISON: Chest 06/13/2020. FINDINGS: The lungs are hyperexpanded with apical predominant emphysematous changes. There is levoscoliosis of the thoracolumbar spine, unchanged. There is a tortuous thoracic aorta. The heart is mildly enlarged. No focal lung consolidations to suggest pneumonia. No evidence for pulmonary edema. The bones are osteopenic. IMPRESSION: No significant change compared to the prior study. No acute process. -- Preliminary Findings Only See Final Report For Complete Findings CT HEAD: No intracranial hemorrhage, mass-effect or CT evidence of large vascular territory acute infarct A nonacute appearing lacunar infarct again suggested at the area of the lateral right thalamus/posterior limb internal capsule axial 15 Ventricles are within limits and midline Visualized paranasal sinuses, mastoids and orbits appear within limits Radiologist: Mihcael Gastelum M.D. Study ready at 21:34 and initial results transmitted at 21:57 -- Preliminary Findings Only See Final Report For Complete Findings CTA HEAD: No central occlusion related to the rampart of [place]. Radiologist: Daniel Lpoez M.D. Study ready at 22:27 and initial results transmitted at 22:49 -- Preliminary Findings Only See Final Report For Complete Findings CTA NECK: Atherosclerotic changes. No occlusion or high-grade stenosis. Compression deformity of T3 Radiologist: Daniel Lopez M.D. Study ready at 22:27 and initial results transmitted at 22:52 Consultation(s): Dr. Aranda, [facility] hospitalist, who will evaluate the patient for admission. HPI: The patient is a pleasant 80-year-old woman with a past medical history of dementia, history of CVA, hypertension, hyperlipidemia, ALEXA, GERD, anxiety who presents emergency department, by her daughter with concern for symptoms of headache with "pain around her eyes which she feels could be related to congestion and then difficulty with balance as well as concern about fluid in her legs. The patient and her daughter at the bedside are poor historians as they report that she took Tylenol and felt her symptoms improved. They report they contacted their doctor and were referred to the emergency department. Prior to the patient's symptoms today she reports she has been feeling healthy denies any recent fevers, chills, cough, congestion, GI or symptoms. Denies any known COVID-19 exposures. ROS: See above HPI for pertinent positives & negatives. A total of 10 systems reviewed and were otherwise negative. PAST MEDICAL HISTORY:See Below PAST SURGICAL HISTORY:See Below FAMILY HISTORY:See Below SOCIAL HISTORY:See Below HOME MEDICATIONS:See Below ALLERGIES:See Below VITALS:See Below PHYSICAL EXAMINATION: GENERAL: Awake, alert, well-appearing, in no distress HENT: Normocephalic, atraumatic. Oropharynx with dry mucous membranes and other olivo unremarkable. EYES: Normal conjunctiva. Sclera non-icteric. EOMI. No nystamgus. PEARRL. NECK: Supple. No nuchal rigidity. FROM. No JVD. RESPIRATORY: Clear to auscultation. CARDIAC: Regular rate, normal rhythm. Extremities warm and well perfused. Pulses equal. ABDOMEN: Soft, non-distended. No tenderness to palpation. No rebound or guarding. No masses. RECTAL: Deferred. MUSCULOSKELETAL: Chest examination reveals no tenderness. The back is symmetrical on inspection without obvious abnormality. There is no CVA tenderness to palpation. No joint edema. LOWER EXTREMITIES: Calves are equal size bilaterally and non-tender. No edema. No discoloration. NEURO: Normal sensorium. No sensory or motor deficits noted. 5/5 strength and SILT x 4 extremities. Cerebellar function intact including [id number], alternating palms, [id number]. Unable to keep balance standing without assistance. SKIN: No rash or jaundice noted. Roland Winslow MD Past Med/Surg History Medical History Acute gastric ulcer CVA (cerebral vascular accident) Diverticulitis Lumbar compression fracture Surgical History H/O: hysterectomy History of appendectomy Family History Father Colon cancer Mother Diabetes Other Alzheimer disease Social History Smoking Status: Never smoker Hx Alcohol Use: No Hx Substance Use: No Preferred Language: Yemeni Communication Ability: Effective Swift Tender Required: No Beliefs That Will Affect Care: None Current Living Situation: Family Other Information That Helps Us Care for You: No Feels Safe at Home: Yes Safety Concerns: Feels Safe At This Time Assistive Devices: Glasses and Hearing Aid - Bilateral Allergies Allergies Allergy/AdvReac Type Severity Reaction Status Date / Time SOAPS Allergy Mild RASH Uncoded 08/03/20 19:22 Home Meds Home Medications Medication Instructions Recorded Confirmed donepezil 5 mg tablet 5 mg PO QPM #30 tab 02/20/19 08/03/20 potassium chloride 10 meq PO DAILY 06/13/20 08/03/20 atorvastatin 10 mg PO DAILY 06/14/20 08/03/20 dorzolamide-timolol 1 drp OPB BID 06/14/20 08/03/20 escitalopram oxalate 2.5 mg PO HS 06/14/20 08/03/20 famotidine 40 mg PO QPM 06/14/20 08/03/20 latanoprost 1 drp OPB HS 06/14/20 08/03/20 lisinopril 10 mg PO DAILY 06/14/20 08/03/20 pantoprazole 40 mg PO DAILY 06/14/20 08/03/20 acetaminophen [Tylenol Extra 1,000 mg PO HS 08/03/20 08/03/20 Strength] multivitamin 1 tab PO DAILY 08/03/20 08/03/20 psyllium husk [Metamucil] 1 tsp PO DAILY 08/03/20 08/03/20 Previous Rx's Medication Instructions Recorded docusate sodium [Colace] 100 mg PO BID #60 cap 06/14/20 oxycodone 5 mg PO Q6H PRN #14 tab 06/14/20 Results & Data (ED) Vital Signs Vital Signs - 24 hr 08/03/20 18:06 08/03/20 19:44 08/03/20 20:01 Temperature 36.6 C Temperature Source Temporal Artery Scan Pulse Rate 71 64 Pulse Rate from SpO2 Sensor 62 Respiratory Rate 16 18 Respiratory Effort / Characteristics Non-Labored Respiratory Depth Normal Respiratory Pattern Regular Blood Pressure 180/102 H 200/98 H Blood Pressure Mean 128 132 Blood Pressure Position Sitting Pulse Oximetry 95 95 96 Oxygen Delivery Method Room Air Room Air Sepsis Recent Fever Within 48 Hours No Sepsis New/Unexplained Change in Mental Status No Sepsis Action Taken by Nursing No Action Required 08/03/20 20:30 08/03/20 21:44 08/03/20 22:00 Temperature Temperature Source Pulse Rate 60 69 55 L Pulse Rate from SpO2 Sensor 62 55 L Respiratory Rate 19 17 20 Respiratory Effort / Characteristics Respiratory Depth Respiratory Pattern Blood Pressure 198/95 H 175/98 H 160/84 H Blood Pressure Mean 129 123 109 Blood Pressure Position Pulse Oximetry 99 98 Oxygen Delivery Method Sepsis Recent Fever Within 48 Hours Sepsis New/Unexplained Change in Mental Status Sepsis Action Taken by Nursing 08/03/20 22:20 08/03/20 22:30 08/03/20 23:03 Temperature Temperature Source Pulse Rate 59 L 54 L 62 Pulse Rate from SpO2 Sensor 61 54 L 60 Respiratory Rate 20 17 17 Respiratory Effort / Characteristics Respiratory Depth Respiratory Pattern Blood Pressure 154/85 H 178/99 H Blood Pressure Mean 108 125 Blood Pressure Position Pulse Oximetry 98 98 98 Oxygen Delivery Method Room Air Sepsis Recent Fever Within 48 Hours Sepsis New/Unexplained Change in Mental Status Sepsis Action Taken by Nursing Laboratory Data Result diagrams: 08/04/20 08:03 08/04/20 08:03 Lab Results 08/03/20 08/03/20 08/03/20 Range/Units 19:57 19:57 19:57 WBC 5.80 (4.8-10.8) K/uL RBC 4.52 (4.2-5.4) M/uL Hgb 13.5 (12.0-16.0) g/dL Hct 39.6 (37-47) % MCV 87.6 (80-100) fL MCH 29.9 (25-34) pg MCHC 34.1 (32-36) g/dL RDW Std Deviation 40.8 (36.4-46.3) fL RDW Coeff of Naomi 12.7 (11.5-14.5) % Plt Count 266 (130-400) K/uL MPV 9.9 (7.4-10.4) fL Immature Gran % (Auto) 0.2 % Neut % (Auto) 54.8 % Lymph % (Auto) 35.3 % [place] % (Auto) 6.7 % Eos % (Auto) 2.8 % Baso % (Auto) 0.2 % Neut # (Auto) 3.18 (1.4-6.5) K/uL Lymph # (Auto) 2.05 (1.2-3.4) K/uL [place] # (Auto) 0.39 (0.11-0.59) K/uL Eos # (Auto) 0.16 (0-0.5) K/uL Baso # (Auto) 0.01 (0-0.2) K/uL Immature Gran # (Auto) 0.01 (0.00-0.02) K/uL PT 10.0 (9.0-12.0) Seconds INR 1.0 (0.9-1.1) Sodium 140 (136-145) mmol/L Potassium 3.6 (3.5-5.1) mmol/L Chloride 107 (98-107) mmol/L Carbon Dioxide 29 (21-32) mmol/L Anion Gap 4.0 (3-11) BUN 14 (7-18) mg/dl Creatinine 0.64 (0.6-1.2) mg/dl Est Cr Clr Drug Dosing Not Reportable Est GFR ( Amer) 97.0 Est GFR (Non-Af Amer) 83.7 BUN/Creatinine Ratio 21.8 H (10-20) Glucose 89 (70-99) mg/dl Calcium 8.7 (8.5-10.1) mg/dl Phosphorus 3.4 (2.5-4.9) mg/dl Magnesium 2.1 (1.8-2.4) mg/dl Total Bilirubin 0.6 (0.2-1) mg/dl AST 20 (15-37) U/L ALT 19 (12-78) U/L Alkaline Phosphatase 106 (45-117) U/L Troponin I 0.092 H* (0-0.045) ng/ml Total Protein 6.9 (6.4-8.2) gm/dl Albumin 3.7 (3.4-5.0) gm/dl Globulin 3.2 (2.5-4.0) gm/dl Albumin/Globulin Ratio 1.2 (0.9-2) Lipase 216 (73-393) U/L TSH 0.768 (0.300-4.500) uIu/ml Urine Color Urine Appearance (Clear) Urine pH (4.5-7.5) Ur Specific [place] (1.000-1.030) Urine Protein (Negative) Urine Glucose (UA) (Negative) Urine Ketones (Negative) Urine Blood (Negative) Urine Nitrite (Negative) Urine Bilirubin (Negative) Urine Urobilinogen (Negative) Ur Leukocyte Esterase (Negative) COVID-19 Eval Order SARS-CoV-2 (PCR) (Negative) Influenza Type A (PCR) (Neg) Influenza Type B (PCR) (Neg) RSV (RT-PCR) (Neg) 08/03/20 08/03/20 08/03/20 Range/Units 19:57 19:57 Unknown WBC (4.8-10.8) K/uL RBC (4.2-5.4) M/uL Hgb (12.0-16.0) g/dL Hct (37-47) % MCV (80-100) fL MCH (25-34) pg MCHC (32-36) g/dL RDW Std Deviation (36.4-46.3) fL RDW Coeff of Naomi (11.5-14.5) % Plt Count (130-400) K/uL MPV (7.4-10.4) fL Immature Gran % (Auto) % Neut % (Auto) % Lymph % (Auto) % [place] % (Auto) % Eos % (Auto) % Baso % (Auto) % Neut # (Auto) (1.4-6.5) K/uL Lymph # (Auto) (1.2-3.4) K/uL [place] # (Auto) (0.11-0.59) K/uL Eos # (Auto) (0-0.5) K/uL Baso # (Auto) (0-0.2) K/uL Immature Gran # (Auto) (0.00-0.02) K/uL PT (9.0-12.0) Seconds INR (0.9-1.1) Sodium (136-145) mmol/L Potassium (3.5-5.1) mmol/L Chloride (98-107) mmol/L Carbon Dioxide (21-32) mmol/L Anion Gap (3-11) BUN (7-18) mg/dl Creatinine (0.6-1.2) mg/dl Est Cr Clr Drug Dosing Est GFR ( Amer) Est GFR (Non-Af Amer) BUN/Creatinine Ratio (10-20) Glucose (70-99) mg/dl Calcium (8.5-10.1) mg/dl Phosphorus (2.5-4.9) mg/dl Magnesium (1.8-2.4) mg/dl Total Bilirubin (0.2-1) mg/dl AST (15-37) U/L ALT (12-78) U/L Alkaline Phosphatase (45-117) U/L Troponin I (0-0.045) ng/ml Total Protein (6.4-8.2) gm/dl Albumin (3.4-5.0) gm/dl Globulin (2.5-4.0) gm/dl Albumin/Globulin Ratio (0.9-2) Lipase (73-393) U/L TSH (0.300-4.500) uIu/ml Urine Color Yellow Urine Appearance Clear (Clear) Urine pH 7.0 (4.5-7.5) Ur Specific [place] 1.015 (1.000-1.030) Urine Protein Negative (Negative) Urine Glucose (UA) Negative (Negative) Urine Ketones Trace H (Negative) Urine Blood Negative (Negative) Urine Nitrite Negative (Negative) Urine Bilirubin Negative (Negative) Urine Urobilinogen Negative (Negative) Ur Leukocyte Esterase Negative (Negative) COVID-19 Eval Order [facility]Rsv at [facility] SARS-CoV-2 (PCR) NEGATIVE (Negative) Influenza Type A (PCR) Negative (Neg) Influenza Type B (PCR) Negative (Neg) RSV (RT-PCR) Negative (Neg) Administered Medications Atorvastatin Calcium (Atorvastatin 10 Mg Tab) 10 mg PO DAILY HENRY Stop: 09/03/20 08:59 Last Admin: 08/04/20 08:23 Dose: 10 mg Documented by: [id number] Docusate Sodium (Docusate Sodium 100 Mg Cap) 100 mg PO BID HENRY Stop: 09/03/20 08:59 Last Admin: 08/04/20 20:48 Dose: 100 mg Documented by: [id number] Admin: 08/04/20 08:23 Dose: 100 mg Documented by: [id number] Donepezil HCl (Donepezil Hcl 5 Mg Tab) 5 mg PO QPM HENRY Stop: 09/03/20 20:59 Last Admin: 08/04/20 20:47 Dose: 5 mg Documented by: [id number] Dorzolamide/Timolol (Dorzolamide/Timolol 22.3/6.8mg/Ml 10 Ml Btl) 1 drops OPB BID HENRY Stop: 09/03/20 08:59 Last Admin: 08/04/20 20:48 Dose: 1 drops Documented by: [id number] Admin: 08/04/20 08:23 Dose: 1 drops Documented by: [id number] Escitalopram Oxalate (Escitalopram Oxalate Oral Soln 5 Mg/5 Ml) 2.5 mg PO HS COUNT INCLUDES THE [facility] Stop: 09/03/20 20:59 Last Admin: 08/04/20 20:47 Dose: 2.5 mg Documented by: [id number] Famotidine (Famotidine 40 Mg Tablet) 40 mg PO QPM HENRY Stop: 09/03/20 20:59 Last Admin: 08/04/20 20:48 Dose: 40 mg Documented by: [id number] Heparin Sodium (Porcine) (Heparin Sod 5,000 Unit/0.5 Ml Vial) 5,000 units SQ Q8 HENRY Stop: 09/03/20 05:59 Last Admin: 08/04/20 21:54 Dose: 5,000 units Documented by: [id number] Admin: 08/04/20 14:03 Dose: 5,000 units Documented by: [id number] Admin: 08/04/20 06:10 Dose: 5,000 units Documented by: [id number] Hydralazine HCl (Hydralazine 10 Mg Tab) 10 mg PO QID HENRY Stop: 09/03/20 12:59 Last Admin: 08/04/20 20:47 Dose: 10 mg Documented by: [id number] Admin: 08/04/20 16:21 Dose: 10 mg Documented by: [id number] Admin: 08/04/20 11:40 Dose: 10 mg Documented by: [id number] Latanoprost (Latanoprost 0.005% Op Soln 2.5 Ml Btl) 1 drops OPB HS HENRY Stop: 09/03/20 20:59 Last Admin: 08/04/20 20:48 Dose: 1 drops Documented by: [id number] Lisinopril (Lisinopril 10 Mg Tab) 10 mg PO DAILY HENRY Stop: 09/03/20 08:59 Last Admin: 08/04/20 08:22 Dose: 10 mg Documented by: [id number] Melatonin (Melatonin 3 Mg Tab) 3 mg PO HS HENRY Stop: 09/03/20 20:59 Last Admin: 08/04/20 20:47 Dose: 3 mg Documented by: [id number] Multivitamins (Multivitamin Tab) 1 tab PO DAILY HENRY Stop: 09/03/20 08:59 Last Admin: 08/04/20 08:22 Dose: 1 tab Documented by: [id number] Pantoprazole Sodium (Pantoprazole 40 Mg Tab) 40 mg PO DAILY HENRY Stop: 09/03/20 08:59 Last Admin: 08/04/20 08:22 Dose: 40 mg Documented by: [id number] Psyllium Hydrophilic Mucilloid (Psyllium 58.6% Powder Packet) 1 pkt PO DAILY HENRY Stop: 09/03/20 08:59 Last Admin: 08/04/20 08:33 Dose: 1 pkt Documented by: [id number] Admin: 08/04/20 08:33 Dose: Not Given Documented by: [id number] Discontinued Medications Hydralazine HCl (Hydralazine Hcl 20 Mg/Ml Vial) 5 mg IV NOW ONE Stop: 08/04/20 01:54 Last Admin: 08/04/20 03:34 Dose: Not Given Documented by: [id number] Sodium Chloride (Nss 1000ml) 1,000 mls @ 999 mls/hr IV .[id number] ONE Stop: 08/03/20 20:20 Last Infusion: 08/03/20 20:54 Dose: 0 mls/hr Documented by: [id number] Admin: 08/03/20 19:53 Dose: 999 mls/hr Documented by: [id number] Acetaminophen (Ofirmev) 1,000 mg in 100 mls @ 400 mls/hr IV NOW STA Stop: 08/03/20 19:34 Last Infusion: 08/03/20 20:08 Dose: 0 mls/hr Documented by: [id number] Admin: 08/03/20 19:53 Dose: 400 mls/hr Documented by: [id number] Potassium Chloride/Sodium Chloride (Normal Saline W/20 Meq Kcl) 20 meq in 1,000 mls @ 80 mls/hr IV .[id number] HNERY Stop: 08/05/20 02:32 Last Infusion: 08/05/20 02:58 Dose: 0 mls/hr Documented by: [id number] Admin: 08/04/20 14:04 Dose: 80 mls/hr Documented by: [id number] Infusion: 08/04/20 14:04 Dose: 80 mls/hr Documented by: [id number] Admin: 08/04/20 02:30 Dose: 80 mls/hr Documented by: [id number] Influenza Virus Vaccine (Influenza Vaccine High Dose 65+ 0.7 Ml Syr) 0.7 ml IM .ONCE ONE Stop: 08/04/20 01:51 Last Admin: 08/04/20 11:42 Dose: 0.7 ml Documented by: [id number] Ioversol (Optiray 320 125ml) 116 ml IV ONCE ONE Stop: 08/03/20 21:26 Last Admin: 08/03/20 21:25 Dose: 116 ml Documented by: [id number] Pneumococcal Polyvalent Vaccine (Pneumococcal Polysaccharides 25 Mcg/0.5 Ml Vial/Syr) 25 mcg IM .ONCE ONE Stop: 08/04/20 01:51 Last Admin: 08/04/20 11:47 Dose: 25 mcg Documented by: [id number] Discharge Plan Visit Data Chief Complaint: Sinus Congestion/Pressure Stated Complaint: SINUS PRESSURE ED Provider: Roland Winslow Discharge Problem: Elevated troponin, Headache, Hypertensive urgency, Dizziness Patient Disposition: Admitted As Inpatient Discharge Instructions Interventions: ED Discharge Assessment Last Done: 08/04/20 01:08 Discharge Problem: Headache Qualifiers: Headache type: unspecified Headache chronicity pattern: unspecified pattern Intractability: not intractable Qualified Code(s): R51.9 - Headache, unspecified
[2020-08-03 21:09] LABS: Influenza A virus by PCR Negative (Neg); Influenza B virus by PCR Negative (Neg); RSV by PCR Negative (Neg); SARS CoV2 RNA(COVID-19) InHosp NEGATIVE (Negative)
[2020-08-03] MEDS ORDERED: OPTIRAY 320 125ml IV ONE (21:25)
[2020-08-03 21:31] LABS: Appearance Urine Clear (Clear); Bilirubin Urine Negative (Negative); Blood Urine Negative (Negative); Color Urine Yellow; Glucose Urine UA Negative (Negative); Ketones Urine Trace (Negative); Leukocyte Esterase Urine Negative (Negative); Nitrite Urine Negative (Negative); Protein Urine Negative (Negative); Specific Gravity Urine 1.015 (1.000-1.030); Urobilinogen Urine Negative (Negative)
--- NOTE | 2020-08-04 00:47 | History & Physical Report ---
Date of Service August 04, 2020 Assessment & Plan (1) Ambulatory dysfunction: Patient is an 80 year old female with PMHx CVA, HTN, Allergic Rhinitis, Dementia, GERD, Depression, Anxiety, ALEXA that presents with 1 month history of frontal head pain and feeling "wobbly" with difficulties walking. Headache -?secondary to hypertensive urgency/emergency with BPH 200/98 on arrival -Head CT/CTA negative for acute pathology though noting old lacunar infarct of the lateral R thalamus/posterior limb internal capsule -No obvious infectious etiology noted on exam for sinus infection or ear infection. -Has improved with Tylenol administration in the ED Ambulatory Dysfunction -Ongoing x1 month -?secondary to worsening symptoms from prior stroke vs OA vs vestibular disturbances from recent ear infection -PT/OT ordered Elevated Troponin -Troponin 0.092 on admission -Chest pain described more musculoskeletal in nature and reproducible to palpation -Will trend x1, but low suspicion for ACS -Echo ordered, pending -Repeat EKG in AM HTN -Significantly elevated on admission, though improving -continue home Lisinopril 10mg QD -can consider labetalol or metoprolol pushes PRN Hx Schatzki Ring -Ongoing worsening dysphagia -Last dilation 09/07/[address] Tolliver -Will consult GI for evaluation while patient is here and COVID-19 negative for evaluation for possible dilation GERD -Continue Pantoprazole -continue Famotidine Dementia -Continue home Donepezil Anxiety/Depression -Continue Lexapro 2.5mg HS ALEXA -CPAP HS Constipation -Continue home Metamucil -Continue home Colace Dispo: Med/Surg Telemetry for continuous monitoring, PT/OT evaluation in the morning, possible EGD for dilation of Schatzki ring pending GI FEN: HH diet DVT: Hep 5000 TID Code: Conditional - CPR OK, NO INTUBATION (2) Schatzki's ring: (3) Allergic rhinitis: (4) HTN (hypertension): (5) Dementia: (6) Chronic gastroesophageal reflux disease: (7) Generalized anxiety disorder: (8) Major depressive disorder, single episode, unspecified: (9) Moderate obstructive sleep apnea: (10) Headache: History of Present Illness Chief Complaint: Headache, Difficulty walking Primary Care Provider: Rhona Busch Patient is an 80 year old female with PMHx CVA, HTN, Allergic Rhinitis, Dementia, GERD, Depression, Anxiety, ALEXA that presents with 1 month history of frontal head pain and feeling "wobbly" with difficulties walking. Patient is a poor historian and patient's daughter who is present is also a poor historian. Patient notes that she had an ear infection roughly 1 month ago and that since then she has difficulties with her gait where she will have times that she has to "take a few steps back." She notes that during these events she does note feel lightheaded, dizzy, headaches, visual changes, or weak, but that she does feel unsteady. She denies any recent falls. She also notes a 1 week history of R sided chest discomfort at the level of the clavicle on the R that reproduces upon palpation. Lastly she notes that she has been having increasing dysphagia, but has not had any incidents of aspiration or choking. On review patient was noted to have dilation of a Schatzki ring on 09/07/2017. Currently patient is laying in the bed comfortable appearing. She denies chest pain, chest pressure, nausea, vomiting, diarrhea, fever, chills, dysuria, hematuria. She does note a mild frontal headache. Med Hx: CVA, HTN, Allerghic Rhinitis, Dementia, GERD, Anxiety, Depression Surg Hx: Hysterectomy, Appendectomy Soc: 5 pack year history quit ~55 years ago, no alcohol or illicit drug use. Allergies Allergy/AdvReac Type Severity Reaction Status Date / Time SOAPS Allergy Mild RASH Uncoded 08/03/20 19:22 Home Medications Medication Instructions Recorded Confirmed Type donepezil 5 mg tablet 5 mg PO QPM #30 tab 02/20/19 08/03/20 History potassium chloride 10 meq PO DAILY 06/13/20 08/03/20 History atorvastatin 10 mg PO DAILY 06/14/20 08/03/20 History docusate sodium [Colace] 100 mg PO BID #60 cap 06/14/20 08/03/20 Rx dorzolamide-timolol 1 drp OPB BID 06/14/20 08/03/20 History escitalopram oxalate 2.5 mg PO HS 06/14/20 08/03/20 History famotidine 40 mg PO QPM 06/14/20 08/03/20 History latanoprost 1 drp OPB HS 06/14/20 08/03/20 History lisinopril 10 mg PO DAILY 06/14/20 08/03/20 History oxycodone 5 mg PO Q6H PRN #14 tab 06/14/20 08/03/20 Rx pantoprazole 40 mg PO DAILY 06/14/20 08/03/20 History acetaminophen [Tylenol Extra 1,000 mg PO HS 08/03/20 08/03/20 History Strength] multivitamin 1 tab PO DAILY 08/03/20 08/03/20 History psyllium husk [Metamucil] 1 tsp PO DAILY 08/03/20 08/03/20 History Past Med/Surg History Medical History Acute gastric ulcer CVA (cerebral vascular accident) Diverticulitis Lumbar compression fracture Surgical History H/O: hysterectomy History of appendectomy Family History Father Colon cancer Mother Diabetes Other Alzheimer disease Social History Smoking Status: Never smoker Hx Alcohol Use: No Hx Substance Use: No Preferred Language: Urdu Communication Ability: Effective Take Up Supervisor Required: No Beliefs That Will Affect Care: None Current Living Situation: Family Other Information That Helps Us Care for You: No Feels Safe at Home: Yes Safety Concerns: Feels Safe At This Time Assistive Devices: Glasses and Hearing Aid - Bilateral Review of Systems Review of Systems: All systems reviewed & are unremarkable except as noted in Subjective Physical Exam Constitutional: well developed; no acute distress Eyes: PERRL, conjunctivae normal, anicteric sclerae ENMT: external ear and nose normal, oropharynx normal Ears: no TM abnormality TM's visible b/l, nonbulging, nonerythematous No tenderness to palpation of the frontal or mastoid sinuses Respiratory: normal respiratory effort, lungs clear to auscultation Cardiovascular: Rate/Rhythm: regular rate and regular rhythm Heart Sounds: + murmur (2/6 ZECHARIAH ) Extremities: normal capillary refill; no calf tenderness Gastrointestinal (Abdomen): normal bowel sounds, soft, nontender, no hepatosplenomegaly Musculoskeletal: no cyanosis or clubbing, extremities motor strength 5/5 Neurologic: PERRL, EOMI, accommodation nl, no face palsy, no dysarthria Psychiatric: A+Ox3, euthymic affect Results & Data Results & Data ([facility]) Vital Signs (Past 12 Hours) Vital Signs Temp Pulse Resp BP Pulse Ox 08/04/20 00:10 56 L 14 98 08/04/20 00:01 56 L 20 169/91 H 97 08/04/20 00:00 59 L 17 97 08/03/20 23:50 60 19 98 08/03/20 23:30 59 L 20 177/110 H 97 08/03/20 23:03 62 17 178/99 H 98 08/03/20 22:30 54 L 17 154/85 H 98 08/03/20 22:20 59 L 20 98 08/03/20 22:00 55 L 20 160/84 H 98 08/03/20 21:44 69 17 175/98 H 08/03/20 20:30 60 19 198/95 H 99 08/03/20 20:01 64 18 200/98 H 96 08/03/20 19:44 95 08/03/20 18:06 36.6 C 71 16 180/102 H 95 Code Status & VTE Plan VTE Prophylaxis Plan VTE Prophylaxis will be ordered: Yes Supervising Physician Co-Signing Physician Notes Patient seen and examined, chart reviewed, case discussed with Dr. Brumfield and I agree with his assessment and plan as documented above. Briefly, patient is an 80yo female presenting with dizziness, difficulty ambulating. Also with headache. Found to have mildly elevated troponin. Severely hypertensive, 212/88 On exam patient is a poor historian. NAD Skin - no rash HEENT - NC/AT, PERRL, EOMI, MMM, Neck supple Heart - +S1/S2, regular, 3/6 ZECHARIAH across precordium Lungs - CTA Abd - +BS, soft, NT/ND Ext - warm, well perfused, no clubbing/cyanosis or edema Neuro - No deficits Labs and images reviewed Trend troponin. Do not suspect ACS. Most likely supply-demand mismatch in setting of markedly elevated BP BP control. Continue home Lisinopril. Labetalol IV PRN PT/OT evaluation Remainder of plan as above Resident Activity Tracking Resident Involvement: Resident Care Provided Care Provided: Adult [facility] Medicine
[2020-08-04] MEDS ORDERED: ACETAMINOPHEN 325 MG TAB PO PRN (01:33)
[2020-08-04] MEDS ORDERED: INFLUENZA VACCINE HIGH DOSE 65+ 0.7 ML SYR IM ONE (01:50)
[2020-08-04] MEDS ORDERED: INFLUENZA ADMINISTRATION CHARGE ONE (01:50)
[2020-08-04] MEDS ORDERED: PNEUMOCOCCAL ADMINISTRATION CHARGE ONE (01:50)
[2020-08-04] MEDS ORDERED: PNEUMOCOCCAL POLYSACCHARIDES 25 MCG/0.5 ML VIAL/SYR IM ONE (01:50)
[2020-08-04] MEDS ORDERED: hydrALAZINE HCL 20 MG/ML VIAL IV ONE (01:53)
[2020-08-04] MEDS: NSS + 20MEQ KCL 20 MEQ/1,000 ML BAG IV SCH ×2 (02:30→14:04)
--- NOTE | 2020-08-04 03:30 | Billing Data ---
Date of Service August 04, 2020 Coding Level of Care Code 24775 OBS Care - Level 3
[2020-08-04] MEDS: HEPARIN SOD 5,000 UNIT/0.5 ML VIAL SQ SCH ×3 (06:10→21:54)
--- NOTE | 2020-08-04 07:11 | CT Scan Report ---
CT SCAN OF THE BRAIN WITHOUT IV CONTRAST CLINICAL HISTORY: Headache. Dizziness. COMPARISON STUDY: CT of the brain dated 06/14/2020. TECHNIQUE: Unenhanced axial CT scan of the brain is performed from the vertex to the skull base. A do se lowering technique was utilized adhering to the principles of ALARA. FINDINGS: Brain parenchyma: There are age-related involutional changes noting mild to moderate subcortical and periventricular microangiopathic change. There is no hemorrhage, mass effect, or evidence of acute t erritorial ischemia by CT criteria. A chronic lacunar infarct is noted in the right thalamus. Altamirano-wh ite matter differentiation is preserved. No extra-axial fluid collection is seen. Ventricles, sulci, cisterns: Prominent secondary to involutional change. Intracranial vasculature: There is atherosclerotic calcification of the cavernous carotid and vertebr al arteries. Calvarium: Unremarkable. Sinuses and mastoids: Retention cysts within the maxillary antra measure up to 1.3 cm. The paranasal sinuses are otherwise clear. The mastoid air cells are well pneumatized. Orbits: The bony orbits are grossly intact. There are bilateral ocular lens implants. IMPRESSION: There is no hemorrhage, mass effect, or evidence of acute territorial ischemia by CT maurice silverman. ACT 112: Negative or not required by law. Electronically signed by: Tushar Kenney M.D. 08/04/2020 7:10 AM
--- NOTE | 2020-08-04 07:39 | CT Scan Report ---
CT ANGIOGRAPHY OF THE NECK WITH CONTRAST CLINICAL HISTORY: Headache. Dizziness. COMPARISON STUDY: No previous studies for comparison. Technique: CT angiography of the carotid and vertebral arteries was obtained using Usabilla 320 IV and 3D reconstruction on an independent workstation. NASCET criteria was utilized. Automated exposure c ontrol was utilized for the study. A dose lowering technique was utilized adhering to the principles of ALARA. CT DOSE: 898.09 mGy.cm Findings: Lung apices are clear. There is no cervical lymphadenopathy. No acute cervical spine fractu re is noted. There is an old severe T3 compression fracture. The bilateral common carotid, cervical i nternal carotid and vertebral arteries are patent. However, the origins of the brachiocephalic trunk and left common carotid artery were not imaged on this examination. There is no dissection within the se vessels. Note is made of moderate plaque within the proximal right internal carotid artery without stenosis. There is mild plaque within the proximal left internal carotid artery without stenosis. Th e CTA of the head will be reported separately. IMPRESSION: No stenosis or dissection within the major vessels of the neck. Mild to moderate atherosclerotic plaq ue within the proximal bilateral internal carotid arteries without stenosis. ACT 112: Negative or not required by law. Electronically signed by: Micky Villarreal M.D. 08/04/2020 7:37 AM
--- NOTE | 2020-08-04 07:48 | CT Scan Report ---
CTA ANGIOGRAPHY OF THE HEAD CLINICAL HISTORY: Headache. Dizziness. COMPARISON STUDY: Head CT June 2020. TECHNIQUE: Helical axial images of the head were obtained following uneventful intravenous administr ation of 116 cc of Optiray 320. Sagittal and coronal reconstructions were viewed as well as maximal i ntensity projections on an independent 3-D workstation. Automated exposure control was utilized for the study. A dose lowering technique was utilized adhering to the principles of ALARA. FINDINGS: Please note that the head CT will be reported separately. Trace fluid within left mastoid a ir cells is noted. No acute intracranial hemorrhage, midline shift or mass effect is present. Ventric ular system is unremarkable. Basal cisterns are patent. There are no extra-axial collections. The tad ateral M1, M2, A1 and A2 segments are patent. There is minimal plaque within bilateral cavernous chester tids without stenosis. The anterior circulation is intact. There is no intracranial aneurysm. There i s no intraluminal thrombus. Note is made of severe stenosis of the P2 segment of the left posterior c erebral artery shown on axial image 94 of 240. No additional stenoses within the intracranial vessels are noted. Otherwise, the posterior circulation is unremarkable. 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 Otherwise, unremarkable CTA of the head. This finding will be called/faxed to the ordering provider at time of dictation. ACT 112: Negative or not required by law. Electronically signed by: Micky Villarreal M.D. 08/04/2020 7:46 AM
[2020-08-04] MEDS: lisinopril 10 MG TAB PO SCH (08:22)
[2020-08-04] MEDS: MULTIVITAMIN TAB PO SCH (08:22)
[2020-08-04] MEDS: PANTOprazole 40 MG TAB PO SCH (08:22)
[2020-08-04] MEDS: DOCUSATE SODIUM 100 MG CAP PO SCH ×2 (08:23→20:48)
[2020-08-04] MEDS: DORZOLAMIDE/TIMOLOL 22.3/6.8MG/ML 10 ML BTL OPB SCH ×2 (08:23→20:48)
[2020-08-04] MEDS: ATORVASTATIN 10 MG TAB PO SCH (08:23)
[2020-08-04] MEDS: PSYLLIUM 58.6% POWDER PACKET PO SCH ×3 (08:24→08:33)
[2020-08-04 08:27] LABS: Basophils # (auto) 0.01 K/uL (0-0.2); Basophils % (auto) 0.2 %; Eosinophils # (auto) 0.21 K/uL (0-0.5); Eosinophils % (auto) 3.9 %; Hematocrit (blood only) 42.3 % (37-47); Hemoglobin 14.2 g/dL (12.0-16.0); Lymphocytes # (auto) 2.39 K/uL (1.2-3.4); Lymphocytes % (auto) 44.7 %; Mean Corpuscular Hemoglobin 29.5 pg (25-34); Mean Corpuscular Hgb Conc 33.6 g/dL (32-36); Mean Corpuscular Volume 87.9 fL (80-100); Mean Platelet Volume 9.8 fL (7.4-10.4); Monocytes # (auto) 0.39 K/uL (0.11-0.59); Monocytes % (auto) 7.3 %; Neutrophils # (auto) 2.35 K/uL (1.4-6.5); Neutrophils % (auto) 43.9 %; Platelet Count 262 K/uL (130-400); RDW Coefficient of Variation 12.7 % (11.5-14.5); RDW Standard Deviation 40.7 fL (36.4-46.3); Red Blood Count 4.81 M/uL (4.2-5.4); White Blood Count 5.35 K/uL (4.8-10.8)
[2020-08-04 09:14] LABS: BUN Creatinine Ratio 12.8 (10-20); Calcium 9.3 mg/dl (8.5-10.1); Creatinine Clr Calc Pharmacy 64.3 ml/min; Est GFR (African American) 106.6; Potassium 3.5 mmol/L (3.5-5.1); Troponin I 0.104 ng/ml (0-0.045)
--- NOTE | 2020-08-04 10:37 | Gastrointestinal Consultation ---
Date of Consultation August 04, 2020 Assessment & Plan (1) Schatzki's ring: (2) Dysphagia: 1. Continue Pantoprazole 40 mg daily. 2. NPO after midnight. 3. EGD with dilation tomorrow by Dr. Ascencio. 4. Further recommendations pending results of testing. Thank you for allowing us to participate in the care of this patient. If you have any questions or concerns, please do not hesitate to contact us. Supervising Physician Co-Signing Physician Notes I personally evaluated the patient and agree with the findings as documented by JENY Cardona Exam: abd: soft, nt, nd EGD tomorrow with dilation, NPO post midnight tonight. History of Present Illness Reason for Consultation: Dysphagia Requesting Physician: Dr. Brumfield Attending Physician: Michael Lora MD History of Present Illness Patient is a 80 y.o. female with a history of Schatzki's ring admitted with ambulatory dysfunction. During her intake, she did mention that she was having returning symptoms of dysphagia. She states she is having swallowing difficulty with medications but not liquids or solid foods. Last EGD was performed by Dr. Tolliver 07/27/2017 and she was dilated to 20 mm. Currently denies any chest pain, shortness of breath or other GI symptoms. Prescribed Protonix 40 mg daily as outpatient. Allergies Allergy/AdvReac Type Severity Reaction Status Date / Time SOAPS Allergy Mild RASH Uncoded 08/03/20 19:22 Home Medications Medication Instructions Recorded Confirmed Type donepezil 5 mg tablet 5 mg PO QPM #30 tab 02/20/19 08/03/20 History potassium chloride 10 meq PO DAILY 06/13/20 08/03/20 History atorvastatin 10 mg PO DAILY 06/14/20 08/03/20 History docusate sodium [Colace] 100 mg PO BID #60 cap 06/14/20 08/03/20 Rx dorzolamide-timolol 1 drp OPB BID 06/14/20 08/03/20 History escitalopram oxalate 2.5 mg PO HS 06/14/20 08/03/20 History famotidine 40 mg PO QPM 06/14/20 08/03/20 History latanoprost 1 drp OPB HS 06/14/20 08/03/20 History lisinopril 10 mg PO DAILY 06/14/20 08/03/20 History oxycodone 5 mg PO Q6H PRN #14 tab 06/14/20 08/03/20 Rx pantoprazole 40 mg PO DAILY 06/14/20 08/03/20 History acetaminophen [Tylenol Extra 1,000 mg PO HS 08/03/20 08/03/20 History Strength] multivitamin 1 tab PO DAILY 08/03/20 08/03/20 History psyllium husk [Metamucil] 1 tsp PO DAILY 08/03/20 08/03/20 History Patient History Medical History Acute gastric ulcer CVA (cerebral vascular accident) Diverticulitis Lumbar compression fracture Surgical History H/O: hysterectomy History of appendectomy Family History Father Colon cancer Mother Diabetes Other Alzheimer disease Social History Smoking Status: Never smoker Hx Alcohol Use: No Hx Substance Use: No Preferred Language: Macedonian Communication Ability: Effective Turn Out Worker Required: No Beliefs That Will Affect Care: None Current Living Situation: Family Other Information That Helps Us Care for You: No Feels Safe at Home: Yes Safety Concerns: Feels Safe At This Time Assistive Devices: Glasses and Hearing Aid - Bilateral Review of Systems Constitutional: no problem reported Respiratory: as per Subjective / HPI Cardiovascular: as per Subjective / HPI Gastrointestinal: as per Subjective / HPI Physical Exam Constitutional: WD/WN, vitals as above Eyes: EOM intact bilaterally Neck: normal appearance Respiratory: normal respiratory effort, lungs clear to auscultation Cardiovascular: Rate/Rhythm: regular rate and regular rhythm Heart Sounds: + murmur Gastrointestinal (Abdomen): normal bowel sounds, soft, nontender, no hepatosplenomegaly Inspection/Auscultation: abdomen not distended Musculoskeletal: Extremities: no cyanosis no lower extremity edema Skin: no rashes, warm and dry Neurologic: moves all extremities Psychiatric: A+Ox3, euthymic affect Results & Data ([facility]) Vital Signs (Past 12 Hours) Vital Signs Temp Pulse Pulse Resp BP BP BP 08/04/20 07:40 36.4 C L 71 20 186/76 H 184/74 H 08/04/20 07:21 56 L 08/04/20 02:30 67 173/87 H 08/04/20 01:33 36.3 C L 58 L 97 H 18 212/88 H 08/04/20 01:00 54 L 14 155/76 H 08/04/20 00:30 62 20 174/98 H 08/04/20 00:10 56 L 14 08/04/20 00:01 56 L 20 169/91 H 08/04/20 00:00 59 L 17 08/03/20 23:50 60 19 08/03/20 23:30 59 L 20 177/110 H 08/03/20 23:03 62 17 178/99 H Pulse Ox Pulse Ox 08/04/20 07:40 97 08/04/20 07:21 08/04/20 02:30 08/04/20 01:33 97 97 08/04/20 01:00 97 08/04/20 00:30 97 08/04/20 00:10 98 08/04/20 00:01 97 08/04/20 00:00 97 08/03/20 23:50 98 08/03/20 23:30 97 08/03/20 23:03 98 Laboratory Results Abnormal lab results 08/03/20 08/03/20 08/04/20 Range/Units 19:57 Unknown 08:03 BUN 6 L D (7-18) mg/dl Creatinine 0.48 L (0.6-1.2) mg/dl BUN/Creatinine Ratio 21.8 H (10-20) Troponin I 0.092 H* 0.104 H* (0-0.045) ng/ml Urine Ketones Trace H (Negative) PG Care Time/CCT Total # of Minutes Spent Total Time Spent with Patient: Total time spent is greater than 50% in coordination of care (as documented) at patient's floor/unit and/or counseling patient: Coding Level of Care Code 83693 Initial Inpt Care Lvl 3 Diagnoses Schatzki's ring K22.2 Dysphagia R13.10
--- NOTE | 2020-08-04 11:02 | XCELERA ---
[id number]
[2020-08-04] MEDS: hydrALAZINE 10 MG TAB PO SCH ×3 (11:40→20:47)
--- NOTE | 2020-08-04 14:36 | Electrocardiogram Report ---
Test Reason : Blood Pressure : / mmHG Vent. Rate : 056 BPM Atrial Rate : 056 BPM P-R Int : 174 ms QRS Dur : 072 ms QT Int : 458 ms P-R-T Axes : 012 006 014 degrees QTc Int : 441 ms Poor data quality, interpretation may be adversely affected Sinus bradycardia Otherwise normal ECG When compared with ECG of 13-JUN-2020 23:06, Vent. rate has decreased BY 41 BPM Criteria for Septal infarct are no longer Present Confirmed by Jim Moseley ([id number]) on 08/04/2020 2:35:56 PM Referred By: REFERRED SELF Confirmed By:Jim Moseley
--- NOTE | 2020-08-04 14:40 | Electrocardiogram Report ---
Test Reason : Blood Pressure : / mmHG Vent. Rate : 054 BPM Atrial Rate : 054 BPM P-R Int : 182 ms QRS Dur : 076 ms QT Int : 468 ms P-R-T Axes : 039 063 023 degrees QTc Int : 443 ms Sinus bradycardia Otherwise normal ECG When compared with ECG of 03-AUG-2020 19:44, (unconfirmed) Questionable change in QRS axis Confirmed by Jim Moseley ([id number]) on 08/04/2020 2:39:47 PM Referred By: REFERRED SELF Confirmed By:Jim Moseley
--- NOTE | 2020-08-04 15:16 | Hospitalist Progress Note ---
Date of Service August 04, 2020 Assessment & Plan (1) Ambulatory dysfunction: Continue OT and PT assessments. This will determine eventual disposition (2) Schatzki's ring: GI consultation appreciated. EGD tomorrow, August 05. (3) Allergic rhinitis: Mild. Medical management (4) HTN (hypertension): Hydralazine added today for better blood pressure management. Will follow (5) Dementia: Mild. Supportive care (6) Chronic gastroesophageal reflux disease: Currently on famotidine (7) Generalized anxiety disorder: Will use benzodiazepine as needed (8) Major depressive disorder, single episode, unspecified: Currently on Lexapro (9) Moderate obstructive sleep apnea: CPAP at bedtime if necessary (10) Headache: As needed Tylenol DVT prophylaxis: Heparin subcu Disposition: To be determined Admission and Anticipated Discharge Date Admission Date: August 04, 2020 Subjective Alert and pleasant. Hydralazine added for better blood pressure control. Troponin is mildly elevated but does not appear to be trending. Will follow. Cardiac echo ordered and pending. GI consultation appreciated. She will undergo EGD for reevaluation of her known Schatzki ring and may possibly undergo dilatation. Review of Systems Review of Systems: All systems reviewed & are unremarkable except as noted in HPI & below Physical Exam Physical Exam: General-alert and oriented x3, no fevers, no chills HEENT-head atraumatic and normocephalic, TMs intact bilaterally, pupils equal and reactive to light, extraocular muscles intact Neck-no lymphadenopathy or thyromegaly, trachea midline Chest-clear to auscultation percussion. No rales wheezing or rhonchi Cardiac-regular rate and rhythm, normal S1 and S2 Abdomen-normal bowel sounds, nontender, no hepatosplenomegaly Extremities-no cyanosis, clubbing, or edema Neuro-cranial nerves II through XII intact, motor and sensory function within normal limits, strength symmetrical , no focal deficits Psych-normal affect, normal mood Results & Data Results & Data ([facility]) Vital Signs (Past 12 Hours) Vital Signs Temp Pulse Pulse Resp BP BP Pulse Ox 08/04/20 12:04 35.9 C L 77 20 150/93 H 96 08/04/20 07:40 36.4 C L 71 20 186/76 H 184/74 H 97 08/04/20 07:21 56 L Laboratory Results 08/04/20 08:03 08/04/20 08:03 PG Care Time/CCT Total # of Minutes Spent Total Time Spent with Patient: Total time spent is greater than 50% in c oordination of care (as documented) at patient's floor/unit and/or counseling patient: Coding Level of Care Code 13382 Subseq Hosp Care Lvl 3 Diagnoses Ambulatory dysfunction R26.2 Schatzki's ring K22.2 Allergic rhinitis J30.9 HTN (hypertension) I10 Dementia F03.90 Chronic gastroesophageal reflux disease K21.9 Generalized anxiety disorder F41.1 Major depressive disorder, single episode, unspecified F32.9 Moderate obstructive sleep apnea G47.33 Headache R51.9
[2020-08-04] MEDS: MELATONIN 3 MG TAB PO SCH (20:47)
[2020-08-04] MEDS: DONEPEZIL HCL 5 MG TAB PO SCH (20:47)
[2020-08-04] MEDS: ESCITALOPRAM OXALATE ORAL SOLN 5 MG/5 ML PO SCH (20:47)
[2020-08-04] MEDS: LATANOPROST 0.005% OP SOLN 2.5 ML BTL OPB SCH (20:48)
[2020-08-04] MEDS: FAMOTIDINE 40 MG TABLET PO SCH (20:48)
[2020-08-05] MEDS: HEPARIN SOD 5,000 UNIT/0.5 ML VIAL SQ SCH ×3 (05:59→21:22)
[2020-08-05] MEDS: hydrALAZINE 10 MG TAB PO SCH ×5 (08:54→21:20)
[2020-08-05] MEDS: DORZOLAMIDE/TIMOLOL 22.3/6.8MG/ML 10 ML BTL OPB SCH ×2 (08:55→21:23)
[2020-08-05] MEDS: DOCUSATE SODIUM 100 MG CAP PO SCH ×2 (08:55→21:25)
[2020-08-05] MEDS: PANTOprazole 40 MG TAB PO SCH (08:55)
[2020-08-05] MEDS: lisinopril 10 MG TAB PO SCH (08:56)
[2020-08-05] MEDS: ATORVASTATIN 10 MG TAB PO SCH (09:16)
[2020-08-05] MEDS: MULTIVITAMIN TAB PO SCH (09:16)
--- NOTE | 2020-08-05 09:58 | History & Physical Bridge Note ---
Date of Service August 05, 2020 History & Physical Bridge Note I have examined the patient, reviewed the History & Physical and in the interval since the performance of the History & Physical I have noted the following changes of clinical significance: no changes noted Patient remains NPO. No GI complaints. PE: A&Ox3. RRR, grade 2 systolic murmur. Lungs CTA bilaterally. Abdomen soft, nontender. Normal bowel sounds. A/P: Dysphagia and history of Schatzki's ring. -Remain NPO for now. -Proceed with EGD and dilation with Dr. Ascencio today. -Further recommendations pending results of testing.
[2020-08-05] MEDS ORDERED: ePHEDrine sulfate 50 MG/ML AMP IV PRN (11:20)
[2020-08-05] MEDS ORDERED: ATROPINE SULFATE 0.1 MG/ML 10ML SYR IV PRN (11:20)
--- NOTE | 2020-08-05 11:20 | Anesthesiology Consultation ---
Date of Service August 05, 2020 Assessment & Plan Chart Review Chart Review: Acceptable Risk for Surgery and Patient NOT seen in Pre Admission Testing Consults Requested none ASA ASA4 Proposed Anesthesia Anesthesia Type: MAC Risk / Benefits Reviewed With: PT / POA / Parent / Guardian, Accepts Plan and Informed Consent Obtained Additional Comments: covid test negative History Surgery Operation Date: 08/05/20 17:45 Proposed Procedures p Esophagogastroduodenoscopy Dr. Silva Ascencio MD Height/Weight Height: 5 ft Weight: 49 kg Allergies Allergy/AdvReac Type Severity Reaction Status Date / Time SOAPS Allergy Mild RASH Uncoded 08/03/20 19:22 Medications Home Medications Medication Instructions Recorded Confirmed Last Taken donepezil 5 mg tablet 5 mg PO QPM #30 tab 02/20/19 08/03/20 08/02/20 potassium chloride 10 meq PO DAILY 06/13/20 08/03/20 08/03/20 atorvastatin 10 mg PO DAILY 06/14/20 08/03/20 08/03/20 docusate sodium [Colace] 100 mg PO BID #60 cap 06/14/20 08/03/20 08/03/20 dorzolamide-timolol 1 drp OPB BID 06/14/20 08/03/20 08/03/20 escitalopram oxalate 2.5 mg PO HS 06/14/20 08/03/20 08/02/20 famotidine 40 mg PO QPM 06/14/20 08/03/20 08/02/20 latanoprost 1 drp OPB HS 06/14/20 08/03/20 08/02/20 lisinopril 10 mg PO DAILY 06/14/20 08/03/20 08/03/20 oxycodone 5 mg PO Q6H PRN #14 tab 06/14/20 08/03/20 Unknown pantoprazole 40 mg PO DAILY 06/14/20 08/03/20 08/03/20 acetaminophen [Tylenol Extra 1,000 mg PO HS 08/03/20 08/03/20 08/02/20 Strength] multivitamin 1 tab PO DAILY 08/03/20 08/03/20 08/03/20 psyllium husk [Metamucil] 1 tsp PO DAILY 08/03/20 08/03/20 08/03/20 Active Medications Generic Name Dose Route Start Last Admin Trade Name Chrisq PRN Reason Stop Dose Admin Atorvastatin Calcium 10 mg 08/04/20 09:00 08/05/20 09:16 Atorvastatin 10 Mg Tab PO 09/03/20 08:59 Not Given DAILY HENRY Docusate Sodium 100 mg 08/04/20 09:00 08/05/20 08:55 Docusate Sodium 100 Mg Cap PO 09/03/20 08:59 Not Given BID HENRY Donepezil HCl 5 mg 08/04/20 21:00 08/04/20 20:47 Donepezil Hcl 5 Mg Tab PO 09/03/20 20:59 5 mg QPM HENRY Administration Dorzolamide/Timolol 1 drops 08/04/20 09:00 08/05/20 08:55 Dorzolamide/Timolol 22.3/6.8mg/Ml 10 Ml Btl OPB 09/03/20 08:59 1 drops BID HENRY Administration Escitalopram Oxalate 2.5 mg 08/04/20 21:00 08/04/20 20:47 Escitalopram Oxalate Oral Soln 5 Mg/5 Ml PO 09/03/20 20:59 2.5 mg HS HENRY Administration Famotidine 40 mg 08/04/20 21:00 08/04/20 20:48 Famotidine 40 Mg Tablet PO 09/03/20 20:59 40 mg QPM HENRY Administration Heparin Sodium (Porcine) 5,000 units 08/04/20 06:00 08/05/20 05:59 Heparin Sod 5,000 Unit/0.5 Ml Vial SQ 09/03/20 05:59 5,000 units Q8 HENRY Administration Hydralazine HCl 10 mg 08/04/20 13:00 08/05/20 08:54 Hydralazine 10 Mg Tab PO 09/03/20 12:59 10 mg QID HENRY Administration Latanoprost 1 drops 08/04/20 21:00 08/04/20 20:48 Latanoprost 0.005% Op Soln 2.5 Ml Btl OPB 09/03/20 20:59 1 drops HS HENRY Administration Lisinopril 10 mg 08/04/20 09:00 08/05/20 08:56 Lisinopril 10 Mg Tab PO 09/03/20 08:59 10 mg DAILY HENRY Administration Melatonin 3 mg 08/04/20 21:00 08/04/20 20:47 Melatonin 3 Mg Tab PO 09/03/20 20:59 3 mg HS HENYR Administration Multivitamins 1 tab 08/04/20 09:00 08/05/20 09:16 Multivitamin Tab PO 09/03/20 08:59 Not Given DAILY HENRY Pantoprazole Sodium 40 mg 08/04/20 09:00 08/05/20 08:55 Pantoprazole 40 Mg Tab PO 09/03/20 08:59 40 mg DAILY HENRY Administration Psyllium Hydrophilic Mucilloid 1 pkt 08/04/20 09:00 08/04/20 08:33 Psyllium 58.6% Powder Packet PO 09/03/20 08:59 1 pkt DAILY HENRY Administration NPO Date Last Intake of Fluids: 08/04/20 Time Last Intake of Fluids: 21:00 Last Intake of Fluids Comment: sip with meds this am Date Last Intake of Solids: 08/04/20 Time Last Intake of Solids: 17:00 Past Medical History Medical History Acute gastric ulcer CVA (cerebral vascular accident) Diverticulitis Lumbar compression fracture Exercise / Class Metabolic Activity III < 4 Walking/Shop/Light housework Past Family History Family History Father Colon cancer Mother Diabetes Other Alzheimer disease Past Surgical History Surgical History H/O: hysterectomy History of appendectomy Past Anesthesia History No Hx of Anesthesia Complications and No Family Hx of Anesthesia Complications History of PONV No Hx of PONV and No Hx of Motion Sickness Social History Smoking Status: Never smoker Hx Alcohol Use: No Hx Substance Use: No substance use type: does not use Physical Exam Vital Signs Last Vital Signs Temp 37.2 C 08/05/20 10:52 Pulse 62 08/05/20 10:52 Resp 18 08/05/20 10:52 BP 169/86 H 08/05/20 10:52 Pulse Ox 96 08/05/20 10:52 Constitutional + thin ENMT Mouth: no dentition abnormality Thyromental Distance: < 3.5 Finger Breadths Mallampati Class: II Neck normal visual inspection and trachea midline; neck extension not limited Respiratory normal respiratory effort Auscultation: lungs clear to auscultation bilaterally Cardiovascular Rate/Rhythm: regular rate and regular rhythm Heart Sounds: no murmur Vessels: no carotid bruit Musculoskeletal Spine: normal cervical ROM Extremities: extremities normal to inspection Neurologic moves all extremities Motor/Sensory: no sensory deficit Psychiatric Orientation: alert and oriented x 3 Testing Laboratory Results 08/04/20 08:03 08/04/20 08:03 PT 10.0 Seconds (9.0-12.0) 08/03/20 19:57 INR 1.0 (0.9-1.1) 08/03/20 19:57 Urine Color Yellow 08/03/20 Unknown Urine Appearance Clear (Clear) 08/03/20 Unknown Urine pH 7.0 (4.5-7.5) 08/03/20 Unknown Ur Specific [place] 1.015 (1.000-1.030) 08/03/20 Unknown Urine Protein Negative (Negative) 08/03/20 Unknown Urine Glucose (UA) Negative (Negative) 08/03/20 Unknown Urine Ketones Trace (Negative) H 08/03/20 Unknown Urine Nitrite Negative (Negative) 08/03/20 Unknown Ur Leukocyte Esterase Negative (Negative) 08/03/20 Unknown Electrocardiogram Date: 08/04/20 Findings: + SB @ (at 54) Chest X-Ray Date: 08/03/20 Findings: + cardiomegaly and + other (emphysematous changes) Echocardiogram Date: 08/04/20 EF: 65% LV Function: normal RWMA: + none Other Findings: + LVH (mild) and + diastolic dysfunction (grade 1) Valvular Disease: + MR (mild)
[2020-08-05] MEDS ORDERED: PROPOFOL IV EMULSION 10 MG/ML 20 ML VIAL IV ONE (11:51)
--- NOTE | 2020-08-05 12:47 | GI REPORT ---
Patient Name: Elsie Clayton Procedure Date: 08/05/2020 12:30 PM Date of : 1940 Admit Type: Inpatient Age: 80 Gender: Female Attending MD: Chinedu Ascencio MD Procedure: Upper GI endoscopy Providers: Chinedu Ascencio MD Referring MD: Michael Lora Indications: Dysphagia Medicines: Monitored Anesthesia Care Complications: No immediate complications. Estimated blood loss: None. Estimated Blood Loss: Estimated blood loss: none. Procedure: Pre-Anesthesia Assessment: - Prior Anticoagulants: The patient has taken no previous anticoagulant or antiplatelet agents. - ASA Grade Assessment: II - A patient with mild systemic disease. After obtaining informed consent, the endoscope was passed under direct vision. Throughout the procedure, the patient's blood pressure, pulse, and oxygen saturations were monitored continuously. The Endoscope was introduced through the mouth, and advanced to the second part of duodenum. The upper GI endoscopy was accomplished without difficulty. The patient tolerated the procedure well. Findings: A small hiatal hernia was present. The Z-line was regular. A TTS dilator was passed through the scope. Dilation with an 18-19-20 mm balloon dilator was performed to 19 mm. The dilation site was examined following endoscope reinsertion and showed mild improvement in luminal narrowing. Estimated blood loss: none. The examined esophagus was mildly tortuous. The entire examined stomach was normal. The duodenal bulb and second portion of the duodenum were normal. LA Grade A (one or more mucosal breaks less than 5 mm, not extending between tops of 2 mucosal folds) esophagitis with no bleeding was found. Impression: - Small hiatal hernia. - Z-line regular. Dilated. - Tortuous esophagus. - Normal stomach. - Normal duodenal bulb and second portion of the duodenum. - No specimens collected. Recommendation: - [facility]. - Advance diet as tolerated today. -start protonix 40 mg daily for 3 months Chinedu Ascencio MD 08/05/2020 12:46:53 PM This report has been signed electronically. Note Initiated On: 08/05/2020 12:30 PM Number of Addenda: 0 I attest to the content of the Intraoperative Record and orders documented therein, exceptions below {[id number]}
[2020-08-05] MEDS ORDERED: LIDOCAINE HCL 2% 2 ML VIAL/AMP(20MG/ML) INFIL ONE (12:50)
--- NOTE | 2020-08-05 13:07 | Anesthesiology Progress Note ---
Date of Service August 05, 2020 Anesthesia Post Procedure Vital Signs Vital Signs: Temp Pulse Pulse Resp BP BP Pulse Ox 08/05/20 13:04 65 14 146/79 H 96 08/05/20 12:50 81 12 146/75 H 94 08/05/20 10:52 37.2 C 62 18 169/86 H 96 08/05/20 07:49 36.7 C 78 20 155/90 H 96 08/05/20 07:30 66 08/05/20 04:30 36.8 C 71 16 131/80 96 08/04/20 23:00 36.5 C 67 18 157/81 H 95 08/04/20 19:48 36.8 C 75 20 156/8 H 96 08/04/20 16:24 100 H 08/04/20 16:11 36.1 C L 73 20 126/68 96 Transfer of Care Handoff Completed per policy Notes Mental Status: alert / awake / arousable Patient Amnestic to Procedure: Yes Nausea / Vomiting: adequately controlled Pain: adequately controlled Airway Patency, RR, SpO2: stable & adequate BP & HR: stable & adequate Hydration State: stable & adequate Anesthetic Complications: no major complications apparent
--- NOTE | 2020-08-05 15:17 | Hospitalist Progress Note ---
Date of Service August 05, 2020 Assessment & Plan (1) Ambulatory dysfunction: Continue OT and PT. it has been determined that she is safe to go home at discharge (2) Schatzki's ring: GI consultation appreciated. EGD completed today, August 06. Dilatation performed. Now on full liquid diet. She will remain on Protonix. (3) Allergic rhinitis: Mild. Medical management (4) HTN (hypertension): Hydralazine added 08/04 for better blood pressure management. Improved (5) Dementia: Mild. Supportive care (6) Chronic gastroesophageal reflux disease: Currently on famotidine (7) Generalized anxiety disorder: Will use benzodiazepine as needed (8) Major depressive disorder, single episode, unspecified: Currently on Lexapro (9) Moderate obstructive sleep apnea: CPAP at bedtime if necessary (10) Headache: As needed Tylenol DVT prophylaxis: Heparin subcu Disposition: Anticipate discharge to home tomorrow, August 06 Admission and Anticipated Discharge Date Admission Date: August 04, 2020 Subjective The patient is seen after her EGD and dilatation procedure. She is alert. She will remain on full liquids tonight then will advance to regular diet tomorrow if she is doing well. Blood pressure is better controlled after addition of hydralazine. Troponin is not trending and no regional wall motion abnormality seen on echo. No evidence of acute coronary syndrome. Hopefully home tomorrow, August 06 Review of Systems Review of Systems: All systems reviewed & are unremarkable except as noted in HPI & below Physical Exam Physical Exam: General-alert and oriented x3, no fevers, no chills HEENT-head atraumatic and normocephalic, pupils equal and reactive to light, extraocular muscles intact Neck-no lymphadenopathy or thyromegaly, trachea midline Chest-clear to auscultation percussion. No rales wheezing or rhonchi Cardiac-regular rate and rhythm, normal S1 and S2 Abdomen-normal bowel sounds, nontender, no hepatosplenomegaly Extremities-no cyanosis, clubbing, or edema Neuro-cranial nerves II through XII intact, motor and sensory function within normal limits, strength symmetrical , no focal deficits Psych-normal affect, normal mood Results & Data Results & Data ([facility]) Vital Signs (Past 12 Hours) Vital Signs Temp Pulse Pulse Resp BP BP Pulse Ox 08/05/20 14:07 36.5 C 62 18 181/92 H 97 04/01/21 13:20 57 L 16 167/84 H 96 08/05/20 13:05 65 14 146/79 H 96 08/05/20 12:50 81 12 146/75 H 94 08/05/20 10:52 37.2 C 62 18 169/86 H 96 08/05/20 07:49 36.7 C 78 20 155/90 H 96 08/05/20 07:30 66 08/05/20 04:30 36.8 C 71 16 131/80 96 Laboratory Results 08/04/20 08:03 08/04/20 08:03 PG Care Time/CCT Total # of Minutes Spent Total Time Spent with Patient: Total time spent is greater than 50% in co ordination of care (as documented) at patient's floor/unit and/or counseling patient: Coding Level of Care Code 56585 Subseq Hosp Care Lvl 3 Diagnoses Ambulatory dysfunction R26.2 Schatzki's ring K22.2 Allergic rhinitis J30.9 HTN (hypertension) I10 Dementia F03.90 Chronic gastroesophageal reflux disease K21.9 Generalized anxiety disorder F41.1 Major depressive disorder, single episode, unspecified F32.9 Moderate obstructive sleep apnea G47.33 Headache R51.9
[2020-08-05] MEDS: ESCITALOPRAM OXALATE ORAL SOLN 5 MG/5 ML PO SCH (21:21)
[2020-08-05] MEDS: DONEPEZIL HCL 5 MG TAB PO SCH (21:21)
[2020-08-05] MEDS: FAMOTIDINE 40 MG TABLET PO SCH (21:22)
[2020-08-05] MEDS: LATANOPROST 0.005% OP SOLN 2.5 ML BTL OPB SCH (21:23)
[2020-08-05] MEDS: MELATONIN 3 MG TAB PO SCH (21:25)
[2020-08-06] MEDS: HEPARIN SOD 5,000 UNIT/0.5 ML VIAL SQ SCH (05:21)
[2020-08-06] MEDS: PANTOprazole 40 MG TAB PO SCH (08:25)
[2020-08-06] MEDS: PSYLLIUM 58.6% POWDER PACKET PO SCH (08:25)
[2020-08-06] MEDS: ATORVASTATIN 10 MG TAB PO SCH (08:26)
[2020-08-06] MEDS: lisinopril 10 MG TAB PO SCH (08:26)
[2020-08-06] MEDS: DORZOLAMIDE/TIMOLOL 22.3/6.8MG/ML 10 ML BTL OPB SCH (08:26)
[2020-08-06] MEDS: MULTIVITAMIN TAB PO SCH (08:26)
[2020-08-06] MEDS: hydrALAZINE 10 MG TAB PO SCH (08:26)
[2020-08-06] MEDS: DOCUSATE SODIUM 100 MG CAP PO SCH (08:27)
--- NOTE | 2020-08-06 10:23 | Anesthesiology Progress Note ---
Date of Service August 06, 2020 Anesthesia Post Procedure Vital Signs Vital Signs: Temp Pulse Pulse Resp BP BP Pulse Ox 08/06/20 07:51 36.6 C 71 20 152/79 H 96 08/06/20 06:57 57 L 08/06/20 02:41 37.2 C 69 16 159/80 H 94 08/06/20 00:45 65 08/05/20 23:03 36.4 C L 65 18 129/78 95 08/05/20 19:00 36.5 C 75 18 139/79 96 08/05/20 18:18 91 H 128/85 08/05/20 16:56 57 L 08/05/20 14:07 36.5 C 62 18 181/92 H 97 08/05/20 13:20 57 L 16 167/84 H 96 08/05/20 13:05 65 14 146/79 H 96 08/05/20 12:50 81 12 146/75 H 94 08/05/20 10:52 37.2 C 62 18 169/86 H 96 Notes Mental Status: alert / awake / arousable and participated in evaluation Patient Amnestic to Procedure: Yes Nausea / Vomiting: adequately controlled Pain: adequately controlled Airway Patency, RR, SpO2: stable & adequate BP & HR: stable & adequate Hydration State: stable & adequate Anesthetic Complications: no major complications apparent and Pt Satisfied with anesthetic care
--- NOTE | 2020-08-06 10:32 | Gastroenterology Progress Note ---
Date of Service August 06, 2020 Assessment & Plan (1) Schatzki's ring: (2) Dysphagia: Sx of dysphagia improved after therapeutic dilation by Dr. Ascencio yesterday. 1. Continue Pantoprazole 40 mg daily. 2. Continue supportive care. 3. GI will sign off at this time. Admission and Anticipated Discharge Date Admission Date: August 04, 2020 Subjective Patient reports swallowing has improved after esophageal dilation of Schatzki's ring yesterday by Dr. Ascencio. She is tolerating her breakfast. No pain with swallowing. Reports only having some lower back pain. Review of Systems Constitutional: no fever and no chills Ear, Nose, Mouth, Throat: as per Subjective / HPI Physical Exam Constitutional: well developed and well nourished Eyes: EOM intact bilaterally Neck: normal visual inspection Respiratory: normal respiratory effort Skin: normal color Psychiatric: A+Ox3, euthymic affect Results & Data Results & Data ([facility]) Vital Signs (Past 12 Hours) Vital Signs Temp Pulse Pulse Resp BP BP Pulse Ox 08/06/20 07:51 36.6 C 71 20 152/79 H 96 08/06/20 06:57 57 L 08/06/20 02:41 37.2 C 69 16 159/80 H 94 08/06/20 00:45 65 08/05/20 23:03 36.4 C L 65 18 129/78 95 PG Care Time/CCT Total # of Minutes Spent Total Time Spent with Patient: Total time spent is greater than 50% in coordination of care (as documented) at patient's floor/unit and/or counseling patient: Coding Level of Care Code 66935 Subseq Hosp Care Lvl 3 Diagnoses Schatzki's ring K22.2 Dysphagia R13.10
--- NOTE | 2020-08-06 11:24 | Hospitalist Progress Note ---
Date of Service August 06, 2020 Assessment & Plan (1) Ambulatory dysfunction: Continue OT and PT. it has been determined that she is safe to go home at discharge (2) Schatzki's ring: GI consultation appreciated. EGD completed August 06. Dilatation per formed. Diet has been advanced. She is doing well. She will remain on Protonix. (3) Allergic rhinitis: Mild. Medical management (4) HTN (hypertension): Hydralazine added 08/04 for better blood pressure management. Improved (5) Dementia: Mild. Supportive care (6) Chronic gastroesophageal reflux disease: Currently on Protonix (7) Generalized anxiety disorder: Will use benzodiazepine as needed (8) Major depressive disorder, single episode, unspecified: Currently on Lexapro (9) Moderate obstructive sleep apnea: CPAP at bedtime if necessary (10) Headache: As needed Tylenol DVT prophylaxis: Heparin subcu Disposition: Home today , August 06 Admission and Anticipated Discharge Date Admission Date: August 04, 2020 Subjective Alert and pleasant. She is swallowing well. Blood pressure is acceptable. Hydralazine is new. She will be discharged home today with hydralazine and pantoprazole. Review of Systems Review of Systems: All systems reviewed & are unremarkable except as noted in HPI & below Physical Exam Physical Exam: General-alert and oriented x3, no fevers, no chills HEENT-head atraumatic and normocephalic, pupils equal and reactive to light, extraocular muscles intact Neck-no lymphadenopathy or thyromegaly, trachea midline Chest-clear to auscultation percussion. No rales wheezing or rhonchi Cardiac-regular rate and rhythm, normal S1 and S2 Abdomen-normal bowel sounds, nontender, no hepatosplenomegaly Extremities-no cyanosis, clubbing, or edema Neuro-cranial nerves II through XII intact, motor and sensory function within normal limits, strength symmetrical , no focal deficits Psych-normal affect, normal mood Results & Data Results & Data ([facility]) Vital Signs (Past 12 Hours) Vital Signs Temp Pulse Pulse Resp BP Pulse Ox 08/06/20 07:51 36.6 C 71 20 152/79 H 96 08/06/20 06:57 57 L 08/06/20 02:41 37.2 C 69 16 159/80 H 94 08/06/20 00:45 65 Laboratory Results 08/04/20 08:03 08/04/20 08:03 PG Care Time/CCT Total # of Minutes Spent Total Time Spent with Patient: Total time spent is greater than 50% in coordination of care (as documented) at patient's floor/unit and/or counseling patient: Coding Level of Care Code 12619 Subseq Hosp Care Lvl 3 Diagnoses Ambulatory dysfunction R26.2 Schatzki's ring K22.2 Allergic rhinitis J30.9 HTN (hypertension) I10 Dementia F03.90 Chronic gastroesophageal reflux disease K21.9 Generalized anxiety disorder F41.1 Major depressive disorder, single episode, unspecified F32.9 Moderate obstructive sleep apnea G47.33 Headache R51.9
--- NOTE | 2020-09-02 14:00 | Discharge Summary ---
Date of Service September 02, 2020 Admission HPI Per Admitting Provider Patient is an 80 year old female with PMHx CVA, HTN, Allergic Rhinitis, Dementia, GERD, Depression, Anxiety, ALEXA that presents with 1 month history of frontal head pain and feeling "wobbly" with difficulties walking. Patient is a poor historian and patient's daughter who is present is also a poor historian. Patient notes that she had an ear infection roughly 1 month ago and that since then she has difficulties with her gait where she will have times that she has to "take a few steps back." She notes that during these events she does note feel lightheaded, dizzy, headaches, visual changes, or weak, but that she does feel unsteady. She denies any recent falls. She also notes a 1 week history of R sided chest discomfort at the level of the clavicle on the R that reproduces upon palpation. Lastly she notes that she has been having increasing dysphagia, but has not had any incidents of aspiration or choking. On review patient was noted to have dilation of a Schatzki ring on 09/07/2017. Currently patient is layi ng in the bed comfortable appearing. She denies chest pain, chest pressure, nausea, vomiting, diarrhea, fever, chills, dysuria, hematuria. She does note a mild frontal headache. Med Hx: CVA, HTN, Allerghic Rhinitis, Dementia, GERD, Anxiety, Depression Surg Hx: Hysterectomy, Appendectomy Soc: 5 pack year history quit ~55 years ago, no alcohol or illicit drug use. Principal Diagnosis Ambulatory dysfunction, esophageal stricture secondary to Schatzki ring Discharge Data Allergies Allergy/AdvReac Type Severity Reaction Status Date / Time SOAPS Allergy Mild RASH Uncoded 08/03/20 19:22 Consultations 08/03/20 23:22 ED Decision to Admit Stat 08/04/20 01:33 Consult Gastroenterology Routine Procedures Performed Operation Date: 08/05/20 17:45 Actual Procedures p EGD Dilatation - Chinedu Ascencio MD Ordered Studies 08/03/20 19:18 CT angio head w con Urgent CT angio neck with con Urgent CT head/brain wo con Urgent Hospital Course (1) Ambulatory dysfunction: Continue OT and PT. it has been determined that she is safe to go home at discharge (2) Schatzki's ring: GI consultation appreciated. EGD completed August 06. Dilatation performed. Diet has been advanced. She is doing well. She will remain on Protonix. (3) Allergic rhinitis: Mild. Medical management (4) HTN (hypertension): Hydralazine added 08/04 for better blood pressure management. Improved (5) Dementia: Mild. Supportive care (6) Chronic gastroesophageal reflux disease: Currently on Protonix (7) Generalized anxiety disorder: Will use benzodiazepine as needed (8) Major depressive disorder, single episode, unspecified: Currently on Lexapro (9) Moderate obstructive sleep apnea: CPAP at bedtime if necessary (10) Headache: As needed Tylenol DVT prophylaxis: Heparin subcu Disposition: Home today , August 06 Total Time Total Time Spent Total Time Spent (In Minutes): 35 minutes Total Time Includes: Examination of the Patient, Discharge Planning and Medication Reconciliation Discharge Plan Discharge Items Patient Disposition: Home - Home Health Services Reason For Visit: HEADACHE, AMBULATORY DYSFUNCTION, ELEVATED TROP Discharge Diagnosis: Hypertensive urgency, Schatzki ring with dysphagia, headache, mildly elevated troponin without acute coronary syndrome Non-emergency contact: Primary Care Provider Call non-emergency contact if: you have any medication questions and your symptoms worsen Follow-up/Referrals: Rhona Busch CRNP [Primary Care Provider] - 08/11/20 1:00 pm Diet: Heart Healthy Addtl Attending Provider Instructions: Hydralazine is new for blood pressure control. Continue Protonix to suppress stomach acid Pending Studies at Discharge: No Stand-Alone Forms: [email or web address], Smoking Cessation Medications and DC Order Prescriptions: New hydralazine 10 mg Tablet 10 mg PO QID Qty: 90 RF: 0 pantoprazole 40 mg Tablet,Delayed Release (Dr/Ec) 40 mg PO DAILY Qty: 30 RF: 0 Continued donepezil 5 mg tablet 5 mg PO QPM Qty: 30 RF: 0 potassium chloride 10 mEq tablet,ER particles/crystals 10 meq PO DAILY RF: 0 latanoprost 0.005 % drops 1 drp OPB HS RF: 0 atorvastatin 10 mg tablet 10 mg PO DAILY RF: 0 pantoprazole 40 mg tablet,delayed release (DR/EC) 40 mg PO DAILY RF: 0 dorzolamide-timolol 22.3-6.8 mg/mL drops 1 drp OPB BID RF: 0 famotidine 40 mg tablet 40 mg PO QPM RF: 0 lisinopril 10 mg tablet 10 mg PO DAILY RF: 0 escitalopram oxalate 5 mg tablet 2.5 mg PO HS RF: 0 oxycodone 5 mg tablet 5 mg PO Q6H PRN (Reason: pain) Qty: 14 RF: 0 docusate sodium [Colace] 100 mg capsule 100 mg PO BID Qty: 60 RF: 0 multivitamin Tablet 1 tab PO DAILY RF: 0 acetaminophen [Tylenol Extra Strength] 500 mg Tablet 1,000 mg PO HS RF: 0 Metamucil 3.4 gram/5.4 gram Powder 1 tsp PO DAILY RF: 0 Discharge Orders: Discharge Order (Routine); Ordered 08/06/20 Ordered By: Michael Lora Admission Data Admit Date/Time: 08/04/20 00:28 Attending Provider: Abiola Shen Admit Provider: Zach Brumfield Primary Care Provider: Rhona Busch Other Providers: Anne Aranda ; Donaldo Tolliver ; [place] Other Interventions: Discharge Summary Assessment (RN) Last Done: 08/06/20 11:32 Coding Level of Care Code D/C Day Management >30 mins Diagnoses Ambulatory dysfunction R26.2 Schatzki's ring K22.2 Allergic rhinitis J30.9 HTN (hypertension) I10 Dementia F03.90 Chronic gastroesophageal reflux disease K21.9 Generalized anxiety disorder F41.1 Major depressive disorder, single episode, unspecified F32.9 Moderate obstructive sleep apnea G47.33 Headache R51.9
== END 2020-08-06 13:15 | disposition home health service (06) ==
LOC: ED 17:39 → 2W 17:39 → SUATTDRO 08-04 00:28 → 2W 08-04 01:08 → 2N 08-05 00:11

== ENCOUNTER 2023-04-24 11:04 | Inpatient (IN) ==
--- NOTE | 2023-04-24 11:41 | Emergency Department Note ---
History of Present Illness General Chief complaint: Leg Injury/Pain Stated complaint: L LEG PAIN Time Seen by Provider: 04/24/23 11:27 History of Present Illness Maximum Pain Intensity: 10 83-year-old female presents emergency department with complaint of left hip pain after a nonsyncopal trip and fall this morning. According to family patient does not use a walker or cane and her left leg had given out and she had fallen and landed on her left side. Per the family the patient did not hit her head she has been acting appropriate. She is complaining of left hip and thigh pain. Patient denies any knee pain. Patient is not currently on blood thinners. There are no other mitigating or alleviating factors. Patient according to family was having some difficulty walking after the event. Home Medications Medication Instructions Recorded Confirmed Type donepezil 5 mg tablet 5 mg PO QPM #30 tabs 02/20/19 03/28/21 History potassium chloride 10 mEq 10 meq PO DAILY 06/13/20 03/28/21 History tablet,extended release(part/cryst) atorvastatin 10 mg tablet 10 mg PO DAILY 06/14/20 03/28/21 History docusate sodium 100 mg capsule 100 mg PO BID #60 caps 06/14/20 03/28/21 Rx (Colace) dorzolamide 22.3 mg-timolol 6.8 1 drp OPB BID 06/14/20 03/28/21 History mg/mL eye drops escitalopram oxalate 5 mg tablet 2.5 mg PO HS 06/14/20 03/28/21 History famotidine 40 mg tablet 40 mg PO QPM 06/14/20 03/28/21 History latanoprost 0.005 % eye drops 1 drp OPB HS 06/14/20 03/28/21 History lisinopril 10 mg tablet 10 mg PO DAILY 06/14/20 03/28/21 History oxycodone 5 mg tablet 5 mg PO Q6H PRN pain #14 tabs 06/14/20 03/28/21 Rx pantoprazole 40 mg tablet,delayed 40 mg PO DAILY 06/14/20 03/28/21 History release acetaminophen 500 mg tablet 1,000 mg PO HS 08/03/20 03/28/21 History (Tylenol Extra Strength) multivitamin 1 tab PO DAILY 08/03/20 03/28/21 History psyllium husk 3.4 gram/5.4 gram 1 tsp PO DAILY 08/03/20 03/28/21 History oral powder (Metamucil) oxycodone 5 mg tablet 5 mg PO Q4H PRN pain #15 tabs 02/06/22 Rx Allergies Allergy/AdvReac Type Severity Reaction Status Date / Time SOAPS Allergy Mild RASH Uncoded 03/28/21 23:06 Past Med/Surg History Medical History Diverticulitis Osteoporosis Acute gastric ulcer Cognitive disorder Generalized anxiety disorder Major depressive disorder, single episode, unspecified Moderate obstructive sleep apnea Osteoarthritis Lumbar compression fracture HTN (hypertension) CVA (cerebral vascular accident) Surgical History H/O: hysterectomy History of appendectomy Family History Father Colon cancer Mother Diabetes Other Alzheimer disease Social History Smoking Status: Never smoker Hx Alcohol Use: No Hx Substance Use: No Preferred Language: Australian Communication Ability: Effective Second Steward Required: No Beliefs That Will Affect Care: None Current Living Situation: Family Feels Safe at Home: Yes Assistive Devices: Glasses and Walker Review of Systems A total of 10 systems reviewed and were otherwise negative Musculoskeletal: + joint pain Physical Exam Vital Signs Vital Signs - 24 hr 04/24/23 11:23 04/24/23 12:55 04/24/23 12:57 Temperature 36.7 C Temperature Source Temporal Artery Scan Pulse Rate 119 H 99 H Pulse Rate [Apical] 103 H Pulse Rhythm [Apical] Regular Pulse Strength [Apical] Normal Respiratory Rate 20 19 Respiratory Effort / Characteristics Non-Labored Spontaneous Non-Labored Spontaneous Respiratory Depth Normal Normal Respiratory Pattern Regular Regular Blood Pressure 161/111 H Blood Pressure [Left Arm] 169/104 H Blood Pressure Mean 127 Blood Pressure Mean [Left Arm] 125 Pulse Oximetry 96 96 Oxygen Delivery Method Room Air Room Air Sepsis Recent Fever Within 48 Hours No Sepsis New/Unexplained Change in Mental Status No Sepsis Action Taken by Nursing No Action Required GENERAL: Patient is awake alert in no acute distress patient is resting comfortably and showing no signs of anxiety EYES: The conjunctivae are clear. The pupils are round and reactive. EARS, NOSE, MOUTH AND THROAT: The nose is without any evidence of any deformity. Mucous membranes are moist. Tongue is midline. NECK: The neck is nontender and supple. RESPIRATORY: Normal respiratory effort is noted there is no evidence of wheezing rhonchi or rales CARDIOVASCULAR: Regular rate and rhythm noted there no murmurs rubs or gallops normal S1 normal S2. GASTROINTESTINAL: The abdomen is soft. Abdomen is nontender. PELVIS: The Pelvis is stable. Tenderness is present to the left anterior thigh there is mild tenderness laterally in the left hip; she is in there there is no shortening or rotation of the left leg BACK: No midline tenderness or or step-off noted range of motion in flexion extension as well as rotation no signs of muscle spasm noted MUSCULOSKELETAL/EXTREMITIES: There is no evidence of gross deformity full range of motion is noted in the hips and shoulders. SKIN: There is no obvious evidence of any rash. There are no petechiae, pallor or cyanosis noted. NEUROLOGIC: Patient is awake alert and oriented x1 Course Reevaluation(s) Reevaluation #1: Reassessment of the patient she is resting in no distress no current pain. I did discuss the x-ray findings with the patient and the patient's family at bedside and the patient will be admitted to the hospital Time: 13:27 Consultations Consultation #1: Case was discussed with Dr. Comer for admission Time: 14:00 Medical Decision Making Medical Records Attestation: I reviewed the patient's medical records. Home Medications Current Medication List: was personally reviewed by me Laboratory Data Attestation: I reviewed the patient's lab results. Lab results interpreted by me patient has an elevated white blood cell count, a mildly elevated blood sugar 04/24/23 12:38 04/24/23 12:38 Lab Results 04/24/23 04/24/23 Range/Units 12:38 Unknown WBC 16.35 H (4.8-10.8) K/ul RBC 5.04 (4.20-5.40) M/uL Hgb 14.9 (12.0-16.0) g/dl Hct 44.1 (37.0-47.0) % MCV 87.5 (80.0-100.0) fL MCH 29.6 (25.0-34.0) pg MCHC 33.8 (32.0-36.0) g/dL RDW Std Deviation 40.9 (36.4-46.3) fL RDW Coeff of Naomi 12.7 (11.5-14.5) % Plt Count 281 (130-400) K/uL MPV 11.0 (9.4-12.4) fL Immature Gran % (Auto) 0.5 % Neut % (Auto) 85.5 % Lymph % (Auto) 8.6 % [place] % (Auto) 5.1 % Eos % (Auto) 0.1 % Baso % (Auto) 0.2 % Neut # (Auto) 13.98 H (1.40-6.50) K/uL Lymph # (Auto) 1.40 (1.20-3.40) K/uL [place] # (Auto) 0.83 H (0.11-0.59) K/uL Eos # (Auto) 0.02 (0.00-0.50) K/uL Baso # (Auto) 0.04 (0.00-0.20) K/uL Immature Gran # (Auto) 0.08 (0.01-0.20) K/uL PT 11.3 (9.0-12.0) Seconds INR 1.0 (0.9-1.1) APTT 26 (21-31) Seconds PTT Ratio 0.9 Sodium 141 (136-145) mmol/L Potassium 4.1 (3.5-5.1) mmol/L Chloride 105 (98-107) mmol/L Carbon Dioxide 29 (21-32) mmol/L Anion Gap 7 (3-11) BUN 11 (6-23) mg/dl Creatinine 0.66 (0.6-1.2) mg/dl Est Cr Clr Drug Dosing 48.1 ml/min Est GFR ( Amer) 94.0 ml/min Est GFR (Non-Af Amer) 81.1 ml/min BUN/Creatinine Ratio 16.7 (10-20) Glucose 153 H (70-99(Fasting)) mg/dl Calcium 9.4 (8.6-10.3) mg/dl Total Bilirubin 1.1 H (0.2-1.0) mg/dl AST 16 (13-39) U/L ALT 9 (7-52) U/L Alkaline Phosphatase 69 (34-104) U/L Total Protein 6.7 (6.0-8.3) gm/dl Albumin 4.2 (3.4-5.0) gm/dl Globulin 2.5 (2.5-4.0) gm/dl Albumin/Globulin Ratio 1.7 (0.9-2) SARS-CoV-2 (PCR) NEGATIVE (Negative) Influenza Type A (PCR) Negative (Neg) Influenza Type B (PCR) Negative (Neg) RSV (RT-PCR) Negative (Neg) Imaging Data Attestation: I personally reviewed and interpreted this imaging study as follows: My Impression: Left hip x-rays interpreted by me positive for intertrochanteric hip fracture Radiologist's Impression: Chest X-Ray 04/24/23 00:00 XR chest 1V not portable CLINICAL HISTORY: LT HIP FX FALL COMPARISON STUDY: Chest CT December 13, 2017. Chest radiograph March 28, 2021. FINDINGS: Incidental note is made of an old, healed proximal left humeral fracture. There is no pneumothorax or pleural effusion. There is no consolidation. Exam is mildly compromised given difficulty positioning. Cardiomediastinal silhouette is stable. There is no evidence for pulmonary edema. IMPRESSION: No acute cardiopulmonary findings. ACT 112: Negative or not required by law. Electronically signed by: Micky Villarreal M.D. 04/24/2023 12:44 PM Hip/Pelvis X-Ray 04/24/23 11:37 XR hip LT 2V w pelvis CLINICAL HISTORY: pain after fall. Left hip pain. COMPARISON STUDY: Left hip 06/13/2020. FINDINGS: Comminuted and displaced intertrochanteric fracture within the proximal left femur. No dislocation. The visualized pelvic bones are intact. The bones are osteopenic. No fractures within the right hip. IMPRESSION: Comminuted and displaced intertrochanteric fracture within the proximal left femur. ACT 112: Negative or not required by law. Electronically signed by: Orlando Guadarrama M.D. 04/24/2023 12:29 PM ECG Data Attestation: I personally reviewed and interpreted this ECG as follows: Additional Comments: EKG interpreted by me sinus tachycardia rate of 101, poor R wave progression in the precordium, nonspecific ST-T change in the precordium and lateral leads, normal axis, normal intervals Telemetry was ordered by me, interpreted as sinus tachycardia rate of 101 MDM Narrative Medical decision making differential diagnosis includes sprain strain fracture contusion dislocation Plan is to x-ray the left hip and pelvis The patient's daughter and son gave me bedside report regarding the patient's inability to use a cane as she does not want to and the fact that she had a nonsyncopal fall this morning landing on her left side. Patient will be admitted for further evaluation and treatment of a intertrochanteric left hip fracture Case was discussed with Dr. Comer for admission Impression & Plan Closed intertrochanteric fracture of left hip Discharge Plan Visit Data Chief Complaint: Leg Injury/Pain Stated Complaint: L LEG PAIN ED Provider: Dustin Arriaga Discharge Problem: Closed intertrochanteric fracture of left hip Patient Disposition: Admitted As Inpatient Forms Stand Alone Forms: [facility] Prescriptions Prescriptions: No Action donepezil 5 mg tablet 5 mg PO QPM Qty: 30 potassium chloride 10 mEq tablet,ER particles/crystals 10 meq PO DAILY latanoprost 0.005 % drops 1 drp OPB HS atorvastatin 10 mg tablet 10 mg PO DAILY pantoprazole 40 mg tablet,delayed release (DR/EC) 40 mg PO DAILY dorzolamide-timolol 22.3-6.8 mg/mL drops 1 drp OPB BID famotidine 40 mg tablet 40 mg PO QPM lisinopril 10 mg tablet 10 mg PO DAILY escitalopram oxalate 5 mg tablet 2.5 mg PO HS oxycodone 5 mg tablet 5 mg PO Q6H PRN (Reason: pain) Qty: 14 0RF docusate sodium [Colace] 100 mg capsule 100 mg PO BID Qty: 60 0RF multivitamin Tablet 1 tab PO DAILY acetaminophen [Tylenol Extra Strength] 500 mg Tablet 1,000 mg PO HS Metamucil 3.4 gram/5.4 gram Powder 1 tsp PO DAILY oxycodone 5 mg tablet 5 mg PO Q4H PRN (Reason: pain) Qty: 15 0RF Referrals Referrals: Mikayla Luna DO [Primary Care Provider] -
--- NOTE | 2023-04-24 12:31 | XRay Report ---
XR hip LT 2V w pelvis CLINICAL HISTORY: pain after fall. Left hip pain. COMPARISON STUDY: Left hip 06/13/2020. FINDINGS: Comminuted and displaced intertrochanteric fracture within the proximal left femur. No disl ocation. The visualized pelvic bones are intact. The bones are osteopenic. No fractures within the ri ght hip. IMPRESSION: Comminuted and displaced intertrochanteric fracture within the proximal left femur. ACT 112: Negative or not required by law. Electronically signed by: Orlando Guadarrama M.D. 04/24/2023 12:29 PM
--- NOTE | 2023-04-24 12:45 | XRay Report ---
XR chest 1V not portable CLINICAL HISTORY: LT HIP FX FALL COMPARISON STUDY: Chest CT December 13, 2017. Chest radiograph March 28, 2021. FINDINGS: Incidental note is made of an old, healed proximal left humeral fracture. There is no pneum othorax or pleural effusion. There is no consolidation. Exam is mildly compromised given difficulty p ositioning. Cardiomediastinal silhouette is stable. There is no evidence for pulmonary edema. IMPRESSION: No acute cardiopulmonary findings. ACT 112: Negative or not required by law. Electronically signed by: Micky Villarreal M.D. 04/24/2023 12:44 PM
[2023-04-24 13:22] LABS: Basophils # (auto) 0.04 K/uL (0.00-0.20); Basophils % (auto) 0.2 %; Eosinophils # (auto) 0.02 K/uL (0.00-0.50); Eosinophils % (auto) 0.1 %; Hematocrit (blood only) 44.1 % (37.0-47.0); Hemoglobin 14.9 g/dl (12.0-16.0); Immature Granulocytes # (auto) 0.08 K/uL (0.01-0.20); Immature Granulocytes % (auto) 0.5 %; Lymphocytes % (auto) 8.6 %; Mean Corpuscular Hemoglobin 29.6 pg (25.0-34.0); Mean Corpuscular Hgb Conc 33.8 g/dL (32.0-36.0); Mean Corpuscular Volume 87.5 fL (80.0-100.0); Monocytes # (auto) 0.83 K/uL (0.11-0.59); Monocytes % (auto) 5.1 %; Neutrophils # (auto) 13.98 K/uL (1.40-6.50); Neutrophils % (auto) 85.5 %; Platelet Count 281 K/uL (130-400); RDW Coefficient of Variation 12.7 % (11.5-14.5); RDW Standard Deviation 40.9 fL (36.4-46.3); Red Blood Count 5.04 M/uL (4.20-5.40); White Blood Count 16.35 K/ul (4.8-10.8)
[2023-04-24 13:26] LABS: Albumin Globulin Ratio 1.7 (0.9-2); Albumin Level 4.2 gm/dl (3.4-5.0); BUN Creatinine Ratio 16.7 (10-20); Bilirubin,Total 1.1 mg/dl (0.2-1.0); Calcium 9.4 mg/dl (8.6-10.3); Creatinine Clr Calc Pharmacy 48.1 ml/min; Est GFR (Non-African American) 81.1 ml/min; Globulin 2.5 gm/dl (2.5-4.0); Potassium 4.1 mmol/L (3.5-5.1); Total Protein 6.7 gm/dl (6.0-8.3)
[2023-04-24 13:41] LABS: Partial Thromboplastin Ratio 0.9; Partial Thromboplastin Time 26 Seconds (21-31); Prothrombin Time 11.3 Seconds (9.0-12.0)
--- NOTE | 2023-04-24 13:47 | History & Physical Report ---
Date of Service April 24, 2023 Assessment & Plan (1) Intertrochanteric fracture of left hip: Plan: Patient does not appear to have capacity to make her own decisions at this time. Consent will need to be gained from her daughter Zoey [place] ([phone]) - number in chart is her old phone number. Pain control with acetaminophen PRN first-line, Dilaudid PRN second line Docusate 100 mg p.o. BID Consult orthopedics Medical optimization deferred to medical provider tomorrow given sinus tachycardia with significant EKG changes however no specific symptoms and if troponin and infection workup negative suspect she will be ready for surgery tomorrow. (2) Osteoporosis: Plan: Diagnosis from chart. No DEXA scan available to review. Consider outpatient DEXA scan on discharge and for primary care physician to consider osteoporosis treatment. Vitamin D level with a.m. labs (3) Abnormal EKG: Plan: Significant EKG changes since 2020 ST depression in anterior leads and T wave inversion in anterior lateral leads. No chest pain or shortness of breath to suggest acute coronary syndrome, troponin pending Sinus tachycardia on the monitor. Possibly has a stress reaction to the fall. No significant symptoms prior to the fall. No pneumonia on chest x-ray, urinalysis pending Rehydrated with intravenous fluids, treat pain and monitor (4) Moderate obstructive sleep apnea: Plan: Does not use CPAP at home (5) Chronic gastroesophageal reflux disease: Plan: No current symptoms Continue pantoprazole and famotidine (6) Dementia: Plan: Continue donepezil 5 mg p.o. QPM Patient does not appear to have capacity to make her own medical decisions at this time (7) HTN (hypertension): Plan: Hold lisinopril presurgery, consider restarting postsurgery pending serial blood pressure measurements (8) Osteoporotic hip fracture: (9) Mixed hyperlipidemia: Plan: Continue atorvastatin (10) Anxiety: Plan: Continue Lexapro Plan VTE prophylaxis - deferred preoperatively Diet - regular, NPO after midnight Disposition - admit to med/tele Admission and Anticipated Discharge Date Admission Date: April 24, 2023 History of Present Illness Chief Complaint: Left hip pain Primary Care Provider: Mikayla Luna DO Elsie Clayton is an 83-year-old female who presents to the ER with left hip pain following a fall landing onto her left side. Her family at bedside have differing views on her baseline mobility with her son reporting she barely gets out of bed and has a decreased appetite since the summer. Her daughter tells me she tries to get her out of bed and she does take her for walks but the patient currently complains it is too cold. At baseline she is able to walk but appears to lack the motivation to do so. She is generally unbalanced when walking and is supposed to use a walker however has dementia and generally chooses not to to. She reports she has a lack of appetite but denies any dysphagia, odynophagia, nausea, vomiting, abdominal pain, diarrhea, constipation, melena or hematochezia. The patient is unable to give me any history regarding her fall today. History taken from family at bedside. Earlier today she became unbalanced without using her walker and fell onto her left side. She did not hit her head with no loss of consciousness and is at her baseline cognition with her dementia. She was at her baseline prior to the fall and unable to weight bear and complaining of left hip pain since the fall. She denies any other extremity pains. Allergies Allergy/AdvReac Type Severity Reaction Status Date / Time SOAPS Allergy Mild RASH Uncoded 03/28/21 23:06 Home Medications Medication Instructions Recorded Confirmed Type donepezil 5 mg tablet 5 mg PO QPM #30 tabs 02/20/19 04/24/23 History potassium chloride 10 mEq 10 meq PO DAILY 06/13/20 04/24/23 History tablet,extended release(part/cryst) atorvastatin 10 mg tablet 5 mg PO HS 06/14/20 04/24/23 History dorzolamide 22.3 mg-timolol 6.8 1 drp OPB BID 06/14/20 04/24/23 History mg/mL eye drops escitalopram oxalate 5 mg tablet 2.5 mg PO HS 06/14/20 04/24/23 History famotidine 40 mg tablet 40 mg PO QPM 06/14/20 04/24/23 History latanoprost 0.005 % eye drops 1 drp OPB HS 06/14/20 04/24/23 History lisinopril 10 mg tablet 10 mg PO DAILY 06/14/20 04/24/23 History pantoprazole 40 mg tablet,delayed 40 mg PO DAILY 06/14/20 04/24/23 History release acetaminophen 500 mg tablet 1,000 mg PO HS 08/03/20 04/24/23 History (Tylenol Extra Strength) multivitamin 1 tab PO DAILY 08/03/20 04/24/23 History psyllium husk 3.4 gram/5.4 gram 1 tsp PO DAILY 08/03/20 04/24/23 History oral powder (Metamucil) Past Med/Surg History Medical History Diverticulitis Osteoporosis Acute gastric ulcer Cognitive disorder Generalized anxiety disorder Major depressive disorder, single episode, unspecified Moderate obstructive sleep apnea Osteoarthritis Lumbar compression fracture HTN (hypertension) CVA (cerebral vascular accident) Surgical History H/O: hysterectomy History of appendectomy Family History Father Colon cancer Mother Diabetes Other Alzheimer disease Social History Smoking Status: Never smoker Hx Alcohol Use: No Hx Substance Use: No Preferred Language: Czech Communication Ability: Effective Job Service Consultant Required: No Beliefs That Will Affect Care: None Current Living Situation: Family Feels Safe at Home: Yes Assistive Devices: Glasses and Walker Review of Systems Review of Systems: All systems reviewed & are unremarkable except as noted in HPI & below Physical Exam Constitutional: well developed; + not well nourished and no acute distress Eyes: PERRL, conjunctivae normal, anicteric sclerae (left pupil mildly larger than right) ENMT: Mouth: + dry oral mucous membranes Respiratory: normal respiratory effort; no respiratory distress Auscultation: lungs clear to auscultation bilaterally; breath sounds present, no diminished lung sounds, no crackles, no rales, no rhonchi and no wheezes Cardiovascular: Rate/Rhythm: regular rhythm and + tachycardic Heart Sounds: no murmur Extremities: normal capillary refill; no calf tenderness and no pedal edema Gastrointestinal (Abdomen): normal bowel sounds, soft, nontender, no hepatosplenomegaly Musculoskeletal: shortened and externally rotated left hip Skin: no rashes, warm and dry Neurologic: awake and + confused; + does not move all extremities Psychiatric: Orientation: alert and oriented to person; + not oriented to place and + not oriented to time Genitourinary: no CVA tenderness Results & Data Results & Data Vital Signs (Past 12 Hours) Vital Signs Temp Pulse Pulse Resp BP BP Pulse Ox 04/24/23 12:57 99 H 04/24/23 12:55 103 H 19 169/104 H 96 04/24/23 11:23 36.7 C 119 H 20 161/111 H 96 O2 Del Method 04/24/23 12:57 04/24/23 12:55 Room Air 04/24/23 11:23 Room Air Laboratory Results Abnormal lab results 04/24/23 Range/Units 12:38 WBC 16.35 H (4.8-10.8) K/ul Neut # (Auto) 13.98 H (1.40-6.50) K/uL [place] # (Auto) 0.83 H (0.11-0.59) K/uL Glucose 153 H (70-99(Fasting)) mg/dl Total Bilirubin 1.1 H (0.2-1.0) mg/dl Diagnostic Findings XR chest 1V not portable CLINICAL HISTORY: LT HIP FX FALL COMPARISON STUDY: Chest CT December 13, 2017. Chest radiograph March 28, 2021. FINDINGS: Incidental note is made of an old, healed proximal left humeral fracture. There is no pneumothorax or pleural effusion. There is no consolidation. Exam is mildly compromised given difficulty positioning. Cardiomediastinal silhouette is stable. There is no evidence for pulmonary edema. IMPRESSION: No acute cardiopulmonary findings. XR hip LT 2V w pelvis CLINICAL HISTORY: pain after fall. Left hip pain. COMPARISON STUDY: Left hip 06/13/2020. FINDINGS: Comminuted and displaced intertrochanteric fracture within the proximal left femur. No dislocation. The visualized pelvic bones are intact. The bones are osteopenic. No fractures within the right hip. IMPRESSION: Comminuted and displaced intertrochanteric fracture within the proximal left femur. Medications Administered ER medications given: None ECG Rate (beats per minute): 101 Rhythm: sinus tachycardia Findings: + nonspecific-ST abn, + ST depression (Anterior) and + T-wave inversion (Anterolateral) Comparison ECG Date: from (March 28, 2021) Change: the following changes noted (ST depression in anterior leads and T wave inversion in anterior lateral leads and new) Code Status & VTE Plan Code Status Full VTE Prophylaxis Plan VTE Prophylaxis will be ordered: No PG Care Time/CCT Total # of Minutes Spent Total Time Spent with Patient: Total time spent is greater than 50% in coordination of care (as documented) at patient's floor/unit and/or counseling patient: Coding Level of Care Code 02540 INT INP/OBS CARE 2/55MIN Diagnoses Closed displaced intertrochanteric fracture of left femur, initial encounter S72.142A Encounter type: initial encounter Fracture alignment: displaced Fracture type: closed Age-related osteoporosis with current pathological fracture, initial encounter M80.00XA Encounter type: initial encounter Osteoporosis type: age-related Presence of current pathological fracture: with current pathological fracture Abnormal EKG R94.31 Moderate obstructive sleep apnea G47.33 Chronic gastroesophageal reflux disease K21.9 Dementia F03.90 HTN (hypertension) I10 Fracture of left hip due to osteoporosis, initial encounter M80.052A Encounter type: initial encounter Laterality: left Mixed hyperlipidemia E78.2 Anxiety F41.9 (1) Intertrochanteric fracture of left hip Encounter type: initial encounter Fracture alignment: displaced Fracture type: closed Qualified Code(s): S72.142A - Displaced intertrochanteric fracture of left femur, initial encounter for closed fracture (2) Osteoporosis Encounter type: initial encounter Osteoporosis type: age-related Presence of current pathological fracture: with current pathological fracture Qualified Code(s): M80.00XA - Age-related osteoporosis with current pathological fracture, unspecified site, initial encounter for fracture (8) Osteoporotic hip fracture Encounter type: initial encounter Laterality: left Qualified Code(s): M80.052A - Age-related osteoporosis with current pathological fracture, left femur, initial encounter for fracture
[2023-04-24 13:48] LABS: Influenza A virus by PCR Negative (Neg); Influenza B virus by PCR Negative (Neg); RSV by PCR Negative (Neg); SARS CoV2 RNA(COVID-19) Ceph NEGATIVE (Negative)
[2023-04-24 14:25] LABS: Appearance Urine Turbid (Clear); Bacteria Urine Automated 4+ (Negative); Bilirubin Urine Negative (Negative); Blood Urine 2+ (Negative); Color Urine Yellow; Glucose Urine UA Negative (Negative); Ketones Urine 1+ (Negative); Leukocyte Esterase Urine 3+ (Negative); Nitrite Urine Positive (Negative); Protein Urine 1+ (Negative); Specific Gravity Urine 1.021 (1.000-1.030); Urobilinogen Urine Negative (Negative); WBC Urine Automated >30 /hpf (0-5); pH Urine 5.5 (4.5-7.5)
--- OUTSIDE RECORDS SUMMARY | 2023-04-24 15:32 | External Medical Summary ---
Author Name Unknown Address Unknown Organization [id number] [address] [id number] Laboratory Report Ordering Provider Test Date Status KENDRA MILNER 04/02/2023 10:46:00 Final Observation Date Value Abnormality Reference (Units ) Status UA Culture Screen 04/02/2023 11:41 Positive screen. Culture to be done. Final Urine Clarity 04/02/2023 11:41 Clear CLER Final Urine Color 04/02/2023 11:41 Yellow YELL Final Specific [place], Urine 04/02/2023 11:41 >=1.030 1.000-1.025 Final Urine pH 04/02/2023 11:41 6.0 5.0-8.0 Final Urine Leukocyte Esterase 04/02/2023 11:41 Moderate Abnormal NEGAT Final Urine Nitrites 04/02/2023 11:41 Pos Abnormal NEGAT Final Protein, Urine 04/02/2023 11:41 Trace Abnormal NEGAT (mg/dL) Final Glucose, Urine 04/02/2023 11:41 Negative NEGAT (mg/dL) Final Urine Ketones 04/02/2023 11:41 Negative NEGAT Final Urine Urobilinogen 04/02/2023 11:41 0.2 0.0-1.0 (mg/dL) Final Urine Bilirubin 04/02/2023 11:41 Negative NEGAT Final Blood, Urine 04/02/2023 11:41 Small Abnormal NEGAT Final Urine Source 04/02/2023 10:51 Clean Catch Urine Final Performing Location [facility] [address] [id number]
--- OUTSIDE RECORDS SUMMARY | 2023-04-24 15:32 | External Medical Summary | Continuity of Care Document ---
Author Name ALF CAMARA MD Address [address] [place] [address] Phone [phone] [facility] Address [address] [place] [address] Phone [phone] Problems Active Problems Provider Date Essential hypertension LONNY Davenport P Onset: 03/12/2017 Generalized anxiety disorder JENY Israel Onset: 03/12/2017 Mild recurrent major depression JENY Shay Onset: 03/12/2017 Gastroesophageal reflux disease JENY Shay Onset: 03/12/2017 Degenerative joint disease i nvolving multiple joints JENY Davenport Onset: 03/12/2017 Low back pain JENY Davenport Onset : 03/12/2017 Mixed hyperlipidemia JENY Davenport Onset: 03/12/2017 Weight decreased JENY Davenport Onse t: 03/12/2017 Obstructive sleep apnea syndrome JENY Pena Onset: 04/12/2017 Allergic rhinitis JENY Davenport Ons et: 06/07/2017 Dementia JENY Davenport Onset : 11/08/2017 Hyperlipidemia JENY Davenport Onset : 12/06/2017 Social History Type Date Description Comments Sex Unknown Tobacco Use Reviewed: 12/21/22 Never Smoked Cigarette s Tobacco Use Reviewed: 12/21/22 Never Smoked Cigars Tobacco Use Reviewed: 12/21/22 Never Smoked A Pipe Smoking Status Reviewed: 12/21/22 Never Smoked A Pipe Smokeless Tobacco 12/21/2022 Never Used Smokeless To bacco ETOH Use 03/12/2017 Denies alcohol use Recreational Drug Use Denies Drug Use Allergies and adverse reactions Active Allergies Criticality Reaction | Severity Comments Date NKDA Unable to assess criticality 08/18/2022 Inactive Allergies NKDA Unable to assess criticality 03/12/2017 Simvastatin Unable to assess criticality Urt icaria, dizziness, joint pain | Moderate 12/06/2017 Medications Active Medications SIG Qnty Indications Order ing Provider Date Lxiideu42EM/Scoop Powder take one scoop as directed daily as needed 119gm K59.00 Alf Camara MD 08/18/2022 Cyanocobalamin (Vit B-12) 1,000 mcg Sublingual1,000mcg Tablet Dissolve Three Tablet On The Tongue Once Daily 90tabs Alf Camara MD 01/13/2022 [facility] L8470hdb (58580 Ut) Capsules 1 by mouth every day 90caps Alf Camara MD 05/07/2021 Potassium Chloride IY88Heg Tablets ER Take One Tablet By Mouth Once Daily 90tabs Cam Hendricks MD 04/13/2021 Aspirin Adult Low Coek29rg Tablets DR 1 by mouth QHS 90tabs Cam Hendricks MD 05/07 Centrum AdultsTablets 1 by mouth QHS 90tabs Armand brenden Hendricks MD 05/17/2020 Escitalopram Ruxsdwv1bd Tablets take one-half tablet by mouth at bedtime 90tabs F41.1 Alf Camara MD 06/14/[address] Take One Tablet By Mouth Once Daily 30tabs Alf Camara MD 05/13/2019 Donepezil HCL5mg Tablets Take One Tablet By Mouth Once Daily 28tabs Alf Camara MD 02/25/2019 Atorvastatin Jpidjpa34lb Tablets take 1 tablet by mouth once daily at bedtime 90tabs E78.5 Alf Camara MD 12/06/2017 Foxjzpslyx10mu Tablets take 1 tablet by mouth once daily in the morning 90tabs I10 Alf Camara MD 04/12/2017 [facility] M54.5 Edwardo Hua DO 03/12/2017 Pxzgbzmoob14re Tablets Take 1 Tablet By Mouth Once Daily AT Bedtime 90tabs Alf Camara MD Medications Administered in Office Medication SIG Qnty Indications Ordering Provider Date Injection Kenalog 10 MG NDC [id number] JENY Davenport 03/06/2019 Injection Kenalog 10 MG NDC [id number] JENY Davenport 05/09/2018 Injection Dexamethasone Sodium Phosphate, 1 MGInjection JENY Shay 05/09/2018 Injection Kenalog 10 MG NDC [id number] [place] Brandon PA-C 05/04/2017 Injection Dexamethasone Sodium Phosphate, 1 MGInjection [place] Brandon PA-C Immunizations CPT Code Status Date Vaccine Lot # [id number] Given 08/22/2022 Moderna Sars-Co v-2 (Covid-19) Vaccine, BiValent Booster [id number] 93592 Given 02/17/2022 Influenza Virus Vaccine, Quadrivalent (Cciiv4), Derived From Cell [id number] 17936 Given 05/26/2021 Shingrix [id number] 45786 Given 04/11/2021 Moderna Covid-1 9 Vaccine 50mcg Booster-EMR Doc Only [id number] 63084 Given 04/11/2021 Influenza Virus Vaccine, Quadrivalent (Cciiv4), Derived From 4 Given 09/10/2020 Moderna Sars-Co v-2 (Cov-19) vacc,100 mcg/ 0.5 mL 12Y+EMR Doc Only [id number] 04802 Given 08/13/2020 Moderna Sars-Co v-2 (Cov-19) vacc,100 mcg/ 0.5 mL 12Y+EMR Doc Only [id number] 52340 Given 03/27/2019 Pneumococcal Vaccine/Pneu movax 23 [id number] 29239 Given 03/06/2019 Influenza Virus Vaccine, Quadrivalent (Cciiv4), Derived From 4 Given 02/14/2018 Influenza Vacci ne Quadrivalent Preser/Antibiotic Free Im Use [id number] 72378 Given 11/08/2017 Tdap (Tetanus, diphtheria & acel. pertussis) Adacel or Boostrix [id number] 94025 Given 11/08/2017 Pneumococcal Conjugate-Pr evnar 13 [id number] Given 11/08/2017 Pneumococcal Conjugate-Pr evnar 13 [id number] 72217 Given 11/08/2017 Tdap (Tetanus, diphtheria & acel. pertussis) Adacel or Boostrix 52991 Given 02/17/2017 Influenza Vacci ne-Administered at another facility U-FLU Given 02/16/2014 Influenza,Unspecified [id number] Refused 07/24/2018 Shingrix [id number] Refused 07/12/2017 Zostavax Vaccine Vital Signs Date Vital Result Comment 04/02/2023 9:36am BP Systolic 112 mmHg BP Diastolic 66 mmHg Body Temperature 97.4 F Heart Rate 67 /min Respiratory Rate 15 /min Weight 90.38 lb Weight 40.994 kg O2 % BldC Oximetry 97 % 12/21/2022 10:58am BP Systolic 120 mmHg BP Diastolic 62 mmHg Body Temperature 97.7 F Heart Rate 89 /min Respiratory Rate 16 /min Weight 101.12 lb Weight 45.870 kg Height 57 inches 4'9" BMI (Body Mass Index) 21.9 kg/m2 O2 % BldC Oximetry 99 % [place] Body Weight 100 lb Results Test Acquired Date Facility Test Result H/L Range N ote Sars Coronavirus Rna QL PCR 04/02/2023 [facility] (In Office Test) Sars Rna QL PCR Unspec Spec Not Detected CBC W/Diff 12/26/2022 [facility] [address] [place] [address] WBC 4.9 10^3/M3 3.1-9.2 RBC 4.51 10^6/M3 3.70-5.50 HGB 13.4 GR/DL 11.5-16.1 HCT 41.0 % 34.5-47.8 MCV 90.9 CUMICR 82.6-95.8 MCH 29.6 PICOGR 27.9-32.9 MCHC 32.6 % 32.6-35.4 RDW 14.4 % 11.4-14.6 PLT 253 10^3/M3 140-350 MPV 9.7 CUMICR 7.0-10.6 %Neut 52.1 % 40.0-75.0 %Lymph 37.3 % 17.0-45.0 %[place] 7.5 % 1.0-11.0 %Eos 2.7 % 0.0-6.0 %Baso 0.4 % 0.0-2.0 #Neut 2.5 10^3/M3 1.5-8.0 #Lymph 1.8 10^3/M3 0.8-3.2 #[place] 0.4 10^3/M3 0.0-0.8 #Eos 0.1 10^3/m3 0.0-0.4 #Baso 0.0 10^3/m3 0.0-0.2 Comp. Met 12/26/2022 [facility]. [address] [place], [place] [id number] [phone] Glucose 94 mg/dL 70-110 BUN 13 mg/dL 6-25 Creatinine 0.6 mg/dL 0.5-1.2 Sodium 146 mEq/L High 135-145 Potassium 4.0 mEq/L 3.5-5.0 Chloride 109 mEq/L High 95-107 Co-2 28 mEq/L 24-31 Alk Phos 75 IU/L 43-122 Alt(SGPT) 4 IU/L Low 10-40 Ast(Sgot) 11 IU/L 3-42 T.Bilirubin 0.6 mg/dL 0.1-1.3 Calcium 9.3 mg/dL 8.5-10.6 Tot.Protein 6.6 g/dL 5.8-8.0 Albumin 4.0 g/dL 3.0-5.2 Globulin 2.6 g/dL 2.0-3.4 GFR 101 ML/MIN/1.73SQM >60 Lipid 12/26/2022 [facility]. [address] [place] [address] [phone] Cholesterol 183 mg/dL 0-200 1 Triglyceride 112 mg/dL 0-150 2 HDLD 50 mg/dL See Comment 3 Measured LDL 117 mg/dL 0-130 4 Calc VLDL 22.4 mg/dL See Comment 5 Chol/HDL 3.7 RATIO See Comment 6 Non-HDL 133 mg/dL See Comment 7 TSH With Reflex 12/26/2022 [facility] [address] [place] [address] [phone] TSH (Reflex) 0.43 uIU/mL Low 0.50-6.00 Laboratory test finding 12/26/2022 [facility] [address] [place], [place] [id number] [phone] Vitd-25Oh 19 ng/mL Low 30-100 FRT4 0.73 ng/dL Low 0.75-1.54 CBC W/Diff 12/21/2022 [facility]. [address] [place] [address] [phone] WBC COMMENT 10^3/M3 3.1-9.2 RBC COMMENT 10^6/M3 3.70-5.50 HGB COMMENT GR/DL 11.5-16.1 HCT COMMENT % 34.5-47.8 MCV COMMENT CUMICR 82.6-95.8 MCH COMMENT PICOGR 27.9-32.9 MCHC COMMENT % 32.6-35.4 RDW COMMENT % 11.4-14.6 PLT COMMENT 10^3/M3 140-350 MPV COMMENT CUMICR 7.0-10.6 %Neut COMMENT % 40.0-75.0 %Lymph COMMENT % 17.0-45.0 %[place] COMMENT % 1.0-11.0 %Eos COMMENT % 0.0-6.0 %Baso COMMENT % 0.0-2.0 #Neut COMMENT 10^3/M3 1.5-8.0 #Lymph COMMENT 10^3/M3 0.8-3.2 #[place] COMMENT 10^3/M3 0.0-0.8 #Eos COMMENT 10^3/m3 0.0-0.4 #Baso COMMENT 10^3/m3 0.0-0.2 Comp. Met 12/21/2022 [facility] [address] [place], [place] [address] [phone] Glucose COMMENT mg/dL 70-110 BUN COMMENT mg/dL 6-25 Creatinine COMMENT mg/dL 0.5-1.2 Sodium COMMENT mEq/L 135-145 Potassium COMMENT mEq/L 3.5-5.0 Chloride COMMENT mEq/L 95-107 Co-2 COMMENT mEq/L 24-31 Alk Phos COMMENT IU/L 43-122 Alt(SGPT) COMMENT IU/L 10-40 Ast(Sgot) COMMENT IU/L 3-42 T.Bilirubin COMMENT mg/dL 0.1-1.3 Calcium COMMENT mg/dL 8.5-10.6 Tot.Protein COMMENT g/dL 5.8-8.0 Albumin COMMENT g/dL 3.0-5.2 Globulin COMMENT g/dL 2.0-3.4 GFR COMMENT Low >60 Lipid 12/21/2022 [facility] [address] [place] [address] [phone] Cholesterol COMMENT mg/dL 0-200 8 Triglyceride COMMENT mg/dL 0-150 HDLD COMMENT mg/dL See Comment Measured LDL COMMENT mg/dL 0-130 Calc VLDL COMMENT mg/dL See Comment Chol/HDL COMMENT RATIO See Comment Non-HDL COMMENT mg/dL See Comment TSH With Reflex 12/21/2022 [facility]. [address] [place] [address] [phone] TSH (Reflex) COMMENT uIU/mL 0.50-6.00 Laboratory test finding 12/21/2022 [facility] [address] [place] [address] [phone] Vitd-25Oh COMMENT ng/mL 30-100 1 CHOLESTEROL Less than 200mg/dl Low risk 201-239 mg/dl Borderline risk Equal to or greater 240mg/dl High risk 2 TRIGLYCERIDES Less than 150mg/dl Normal 150-199mg/dl Borderline 200-499mg/dl High Greater than 500mg/dl Very High 3 HDL <40mg/dl Elevated Risk 41-59mg/dl Risk >=60mg/dl Least Risk 4 LDL <100mg/dl Optimal 100-129mg/dl Near Optimal 130-159mg/dl Borderline High 160-189mg/dl High >=190 Very High 5 VLDL Less than 30mg/dl Normal 6 CHOL/HDL <4.0 Optimal 4.0-5.0 Borderline >6.0 High Risk 7 NON-HDL 30mg/dl higher than LDL Target 8 ORDER TRANSMITTED TO LABORATORY. NO SPECIMENS RECEIVED FOR TESTING. 8.18.23 MOHSEN Procedures Date Code Description Status 12/26/2022 51160 Venipuncture Routine Complet ed 12/21/2022 62923 Venipuncture Routine Complet ed 12/21/2022 3078F PVRP Diastolic BP <80 mmHg C ompleted 12/21/2022 3074F PVRP Systolic BP <130 mmHg C ompleted 01/03/2019 [id number] Mammogram Completed 08/13/2014 [id number] Colonoscopy Completed 02/28/2010 [id number] Colonoscopy Completed 02/02/2009 [id number] Bone Mineral Density Test Co mpleted Medical Devices Description No Information Available Encounters Type Date Location Provider Dx Diagnosis Office Visit 12/21/2022 11:30a [place] Alf Camara MD K59.00 Constipation, unspecified E78.5 Hyperlipidemia, unsp ecified I10 Essential (primary) hypertension M79.604 Pain in right leg Assessments Date Code Description Provider 04/02/2023 R53.83 Other fatigue Alf Camara MD 04/02/2023 R35.0 Frequency of micturition Juan Miguel Camara MD 12/26/2022 K59.00 Constipation, unspecified Dominique Camara MD 12/26/2022 K59.00 Constipation, unspecified La b - Melisa Schmitt 12/21/2022 K59.00 Constipation, unspecified Dominique Camara MD 12/21/2022 E78.5 Hyperlipidemia, unspecified Alf Camara MD 12/21/2022 I10 Essential (primary) hyperten srinivas Alf Camara MD 12/21/2022 M79.604 Pain in right leg Alf ty MD Plan of Treatment 04/02/2023 - Alf Camara MD* R53.83 Other fatigue* New Labs:* CBC W/Diff, Ordered: 04/02/23 * Comp. Met, Ordered: 04/02/23 * T3/T4/TSH, Ordered: 04/02/23 * Urinalysis,Cult If Indicated, Ordered: 04/02/23 * R35.0 Frequency of micturition* Comments:* Reviewed the importance of proper hygiene after voiding. Functional Status Description No Information Available Mental Status Description No Information Available Referrals Description No Information Available
--- OUTSIDE RECORDS SUMMARY | 2023-04-24 15:32 | External Medical Summary | Continuity of Care Document ---
Author Name [facility] [place] Address [address] [place] [address] Phone [phone] Organization [facility], Address [address] [place] [address] Phone [phone] Problems Active Problems Provider Date Essential hypertension [...] SIG Qnty Indications Order ing Provider Date Bzjpxbw03DI/Scoop Powder take one scoop as directed daily as needed 119gm K59.00 Alice Camara MD 08/18/2022 Cyanocobalamin (Vit B-12) 1,000 mcg Sublingual1,000mcg Tablet Dissolve Three Tablet On The Tongue Once Daily 90tabs Alice Camara MD 01/13/2022 [facility] Vitamin N6315xck (14687 Ut) Capsules 1 by mouth every day 90caps Alice Camara MD 05/07/2021 Potassium Chloride AU86Ron Tablets ER Take One Tablet By Mouth Once Daily 90tabs Cam Hendricks MD 04/13/2021 Aspirin Adult Low Behs58ki Tablets DR 1 by mouth QHS 90tabs aCm Hendricks MD 05/07 Centrum AdultsTablets 1 by mouth QHS 90tabs Armand brenden Hendricks MD 05/17/2020 Escitalopram Zfpyxbh9qg Tablets take one-half tablet by mouth at bedtime 90tabs F41.1 Alice Camara MD 06/14/[address] Take One Tablet By Mouth Once Daily 30tabs Alice Camara MD 05/13/2019 Donepezil HCL5mg Tablets Take One Tablet By Mouth Once Daily 28tabs Alice Camara MD 02/25/2019 Atorvastatin Cylnutx69qb Tablets take 1 tablet by mouth once daily at bedtime 90tabs E78.5 Alice Camara MD 12/06/2017 Vxvpgznceq47gn Tablets take 1 tablet by mouth once daily in the morning 90tabs I10 Alice Camara MD 04/12/2017 [facility] 1units M54.5 Edwardo Hua DO 03/12/2017 Wzgparjtbw68aq Tablets Take 1 Tablet By Mouth Once Daily AT Bedtime 90tabs Alice Camara MD Medications Administered in Office Medication SIG Qnty Indications Ordering Provider Date Injection Kenalog 10 MG NDC [id number] JENY Davenport 03/06/2019 Injection Kenalog 10 MG NDC [id number] JENY Davenport 05/09/2018 Injection Dexamethasone Sodium Phosphate, 1 MGInjection JENY Shay 05/09/2018 Injection Kenalog 10 MG NDC [id number] [place] Brandon PA-C 05/04/2017 Injection Dexamethasone Sodium Phosphate, 1 MGInjection [place] Brandon PA-C Immunizations CPT Code Status Date Vaccine Lot # 72051 Given 08/22/2022 Moderna Sars-Co v-2 (Covid-19) Vaccine, BiValent Booster 12y+ [id number] 12871 Given 02/17/2022 Influenza Virus Vaccine, Quadrivalent (Cciiv4), Derived From Cell [id number] 12645 Given 05/26/2021 Shingrix [id number] 99214 Given 04/11/2021 Moderna Covid-19 Vaccine 50mcg Booster [id number] 87001 Given 04/11/2021 Influenza Virus Vaccine, Quadrivalent (Cciiv4), Derived From 4 Given 09/10/2020 Moderna Sars-Co v-2 (Covid-19) vaccine, 100 mcg/ 0.5 mL 12Y+ [id number] 34183 Given 08/13/2020 Moderna Sars-Co v-2 (Covid-19) vaccine, 100 mcg/ 0.5 mL 12Y+ [id number] 71806 Given 03/27/2019 Pneumococcal Vaccine/Pneu movax 23 [id number] 32302 Given 03/06/2019 Influenza Virus Vaccine, Quadrivalent (Cciiv4), Derived From 8 Given 02/14/2018 Influenza Vacci ne Quadrivalent Preser/Antibiotic Free Im Use [id number] 19749 Given 11/08/2017 Tdap (Tetanus, diphtheria & acel. pertussis) Adacel or Boostrix [id number] 08603 Given 11/08/2017 Pneumococcal Conjugate-Pr evnar 13 27616 Given 11/08/2017 Pneumococcal Conjugate-Pr evnar 13 [id number] 30858 Given 11/08/2017 Tdap (Tetanus, diphtheria & acel. pertussis) Adacel or Boostrix 42018 Given 02/17/2017 Influenza Vacci ne-Administered at another facility U-FLU Given 02/16/2014 Influenza,Unspecified 13014 Refused 07/24/2018 Shingrix [id number] Refused 07/12/2017 Zostavax Vaccine Vital Signs Date Vital Result Comment 12/21/2022 10:58am BP Systolic 120 mmHg BP Diastolic 62 mmHg Body Temperature 97.7 F Heart Rate 89 /min Respiratory Rate 16 /min Weight 101.12 lb Weight 45.870 kg Height 57 inches 4'9" BMI (Body Mass Index) 21.9 kg/m2 O2 % BldC Oximetry 99 % [place] Body Weight 100 lb 08/28/2022 3:48pm BP Systolic 124 mmHg BP Diastolic 82 mmHg Body Temperature 97.6 F Heart Rate 77 /min Respiratory Rate 14 /min Weight 102.00 lb Weight 46.267 kg Height 57 inches 4'9" BMI (Body Mass Index) 22.1 kg/m2 O2 % BldC Oximetry 98 % [place] Body Weight 100 lb Results Test Acquired Date Facility Test Result H/L Range N ote Laboratory test finding 12/26/2022 [facility]. [address] [place], [place] [address] [phone] Vitd-25Oh <pending> CBC W/Diff 12/21/2022 [facility]. [address] [place], [place] [address] [phone] WBC COMMENT 10^3/M3 3.1-9.2 RBC COMMENT 10^6/M3 3.70-5.50 HGB COMMENT GR/DL 11.5-16.1 HCT COMMENT % 34.5-47.8 MCV COMMENT CUMICR 82.6-95.8 MCH COMMENT PICOGR 27.9-32.9 MCHC COMMENT % 32.6-35.4 RDW COMMENT % 11.4-14.6 PLT COMMENT 10^3/M3 140-350 MPV COMMENT CUMICR 7.0-10.6 %Neut COMMENT % 40.0-75.0 %Lymph COMMENT % 17.0-45.0 %[place] COMMENT % 1.0-11.0 %Eos COMMENT % 0.0-6.0 %Baso COMMENT % 0.0-2.0 #Neut COMMENT 10^3/M3 1.5-8.0 #Lymph COMMENT 10^3/M3 0.8-3.2 #[place] COMMENT 10^3/M3 0.0-0.8 #Eos COMMENT 10^3/m3 0.0-0.4 #Baso COMMENT 10^3/m3 0.0-0.2 Comp. Met 12/21/2022 [facility]. [address] [place] [address] [phone] Glucose COMMENT mg/dL 70-110 BUN COMMENT mg/dL [...] 2.0-3.4 GFR COMMENT Low >60 Lipid 12/21/2022 [facility]. [address] [place], [place] [address] [phone] Cholesterol COMMENT mg/dL 0-200 1 Triglyceride COMMENT mg/dL 0-150 HDLD COMMENT mg/dL See Comment Measured LDL COMMENT mg/dL 0-130 Calc VLDL COMMENT mg/dL See Comment Chol/HDL COMMENT RATIO See Comment Non-HDL COMMENT mg/dL See Comment TSH With Reflex 12/21/2022 [facility]. [address] [place] [address] [phone] TSH (Reflex) COMMENT uIU/mL 0.50-6.00 Laboratory test finding 12/21/2022 [facility]. [address] [place] [address] [phone] Vitd-25Oh COMMENT ng/mL 30-100 1 ORDER TRANSMITTED TO LABORATORY. NO SPECIMENS RECEIVED FOR TESTING. 8.18.23 MOHSEN Procedures Date Code Description Status 12/26/2022 29946 Venipuncture Routine Complet ed 12/21/2022 45812 Venipuncture Routine Complet ed 12/21/2022 3078F PVRP Diastolic BP <80 mmHg C ompleted 12/21/2022 3074F PVRP Systolic BP <130 mmHg C ompleted 08/22/2022 3288F Fall Risk Assessment Documen jessica Completed 08/22/2022 1100F PT Screened Futu re Fall Risk >/=2 Falls In Past Yr/1 W/Injury Completed 08/22/2022 0064A Moderna Covid-19 Vaccine 50mcg Administration - Booster Completed 08/18/2022 3079F PVRP Diastolic BP 80-89 MMHG Completed 08/18/2022 3074F PVRP Systolic BP <130 mmHg C ompleted 01/03/2019 [id number] Mammogram Completed 08/13/2014 06692471 Colonoscopy Completed 02/28/2010 [id number] Colonoscopy Completed 02/02/2009 054540065 Bone Mineral Density Test Co mpleted Medical Devices Description No Information Available Encounters Type Date Location Provider Dx Diagnosis Office Visit 12/21/2022 11:30a Melisa Camara MD K59.00 Constipation, unspecified E78.5 Hyperlipidemia, unsp ecified I10 Essential (primary) hypertension M79.604 Pain in right leg Office Visit 08/28/2022 4:45p Melisa lisa MD R19.7 Diarrhea, unspecified Office Visit 08/22/2022 11:30a Melisa ty MD Z00.01 Encounter for general adult medical exam w abnormal findings Z23 Encounter for immuni zation K59.00 Constipation, unspec ified Z68.21 Body mass index [BMI ] 21.0-21.9, adult Office Visit 08/18/2022 11:00a Melisa ty MD K59.00 Constipation, unspecified E78.5 Hyperlipidemia, unsp ecified I10 Essential (primary) hypertension K21.9 Gastro-esophageal re flux disease without esophagitis Assessments Date Code Description Provider 12/26/2022 K59.00 Constipation, unspecified La b - Melisa Schmitt 12/21/2022 K59.00 Constipation, unspecified Dominique Camara MD 12/21/2022 E78.5 Hyperlipidemia, unspecified Alice Camara MD 12/21/2022 I10 Essential (primary) anali Camara MD 12/21/2022 M79.604 Pain in right leg Alice ty MD 08/28/2022 R19.7 Diarrhea, unspecified Tamanna Camara MD 08/22/2022 Z00.01 Encounter for ge neral adult medical examination with abnormal findings Alice Camara MD 08/22/2022 Z23 Encounter for immunization G pete Camara MD 08/22/2022 K59.00 Constipation, unspecified Dominique Camara MD 08/22/2022 Z68.21 Body mass index [BMI] 21.0-2 1.9, adult Alice Camara MD 08/18/2022 K59.00 Constipation, unspecified Dominique Camara MD 08/18/2022 E78.5 Hyperlipidemia, unspecified Alice Camara MD 08/18/2022 I10 Essential (primary) anali Camara MD 08/18/2022 K21.9 Gastro-esophagea l reflux disease without esophagitis Alice Camara MD 08/04/2022 K21.9 Gastro-esophagea l reflux disease without esophagitis Alice Camara MD 08/04/2022 G47.33 Obstructive sleep apnea (ciro lt) (pediatric) Alice Camara MD 08/04/2022 I10 Essential (primary) anali Camara MD 07/04/2022 G47.33 Obstructive sleep apnea (ciro lt) (pediatric) Alice Camara MD 07/04/2022 E78.5 Hyperlipidemia, unspecified Alice Camara MD 07/04/2022 I10 Essential (primary) anali Camara MD 07/04/2022 K21.9 Gastro-esophagea l reflux disease without esophagitis Alice Camara MD Plan of Treatment Future Appointment(s):* 03/23/2023 1:30 pm - Alice Camara MD at [place] 12/21/2022 - Alice Camara MD* K59.00 Constipation, unspecified* Comments:* Drink plenty of fluid follow high fiber diet * Follow up:* f/up in 3 months * E78.5 Hyperlipidemia, unspecified * I10 Essential (primary) hypertension * M79.604 Pain in right leg Functional Status Description No Information Available Mental Status Description No Information Available Referrals Description No Information Available
--- OUTSIDE RECORDS SUMMARY | 2023-04-24 15:32 | External Medical Summary ---
Author Name Unknown Address Unknown Organization [facility] [address] [place] [address] Laboratory Report Ordering Provider Test Date Status KENDRA MILNER 04/02/2023 10:45:00 Final Observation Date Value Abnormality Reference (Units ) Status Glucose 04/02/2023 11:33 98 70-99 (mg/dL) Final BUN 04/02/2023 11:41 10 7-18 (mg/dL) Final Creatinine 04/02/2023 11:33 0.61 0.60-1.30 (m g/dL) Final eGFR 04/02/2023 11:33 88 >59 (mL/min/1 .73m2) Final eGFR = 142 X [min(Scr/k,1)]* *a [max(Scr/k,1)-1.200x0.9938age X 1.012 [if female] Where Scr is serum creatinine; k is 0.7 for females and 0.9 males; a is -0.241 for females and -0.302 for males; min indicates the minimum of Scr/k or 1, max indicates the maximum of Scr/k or 1 Sodium 04/02/2023 11:33 131 Below low normal 136-14 5 (mmol/L) Final Potassium 04/02/2023 11:33 3.8 3.6-5.0 (mmol /L) Final Chloride 04/02/2023 11:33 103 101-111 (mmol /L) Final CO2 04/02/2023 11:33 21 21-31 (mmol/L ) Final Anion Gap 04/02/2023 11:33 11 6-16 (mmol/L) Final Calcium 04/02/2023 11:33 9.0 8.4-10.5 (mg/ dL) Final Total Protein 04/02/2023 11:33 7.7 6.0-8.3 ( g/dL) Final Albumin 04/02/2023 11:33 4.4 3.2-5.5 (g/dL ) Final Bilirubin, Total 04/02/2023 11:33 1.0 0.2-1. 0 (mg/dL) Final AST 04/02/2023 11:33 22 10-42 (U/L) F inal ALT 04/02/2023 11:33 16 10-60 (U/L) F inal Alkaline Phosphatase 04/02/2023 11:33 65 42 -121 (U/L) Final Performing Location [facility] [address] [place] [address]
--- OUTSIDE RECORDS SUMMARY | 2023-04-24 15:32 | External Medical Summary | Continuity of Care Document ---
Author Name Lab - [place] Address [address] [place] [address] Phone [phone] Organization [facility], Address [address] [place] [address] Phone [phone] Problems Active Problems Provider Date Essential hypertension [...] SIG Qnty Indications Order ing Provider Date Jsulnek37VN/Scoop Powder take one scoop as directed daily as needed 119gm K59.00 Alice Camara MD 08/18/2022 Cyanocobalamin (Vit B-12) 1,000 mcg Sublingual1,000mcg Tablet Dissolve Three Tablet On The Tongue Once Daily 90tabs Alice Camara MD 01/13/2022 [facility] Vitamin P1355ipw (41667 Ut) Capsules 1 by mouth every day 90caps Alice Camara MD 05/07/2021 Potassium Chloride HD70Zsm Tablets ER Take One Tablet By Mouth Once Daily 90tabs Cam Hendricks MD 04/13/2021 Aspirin Adult Low Swzl13tp Tablets DR 1 by mouth QHS 90tabs Cam Hendricks MD 05/07 Centrum AdultsTablets 1 by mouth QHS 90tabs Armand brenden Hendricks MD 05/17/2020 Escitalopram Livirlt9mt Tablets take one-half tablet by mouth at bedtime 90tabs F41.1 Alice Camara MD 06/14/[address] Take One Tablet By Mouth Once Daily 30tabs Alice Camara MD 05/13/2019 Donepezil HCL5mg Tablets Take One Tablet By Mouth Once Daily 28tabs Alice Camara MD 02/25/2019 Atorvastatin Jxfibnf60zr Tablets take 1 tablet by mouth once daily at bedtime 90tabs E78.5 Alice Camara MD 12/06/2017 Riylprgext90az Tablets take 1 tablet by mouth once daily in the morning 90tabs I10 Alice Camara MD 04/12/2017 [facility] [place] [facility] 1units M54.5 Edwardo Hua DO 03/12/2017 Ywrdyqfclw16wl Tablets Take 1 Tablet By Mouth Once Daily AT Bedtime 90tabs Alice Camara MD Medications Administered in Office Medication SIG Qnty Indications Ordering Provider Date Injection Kenalog 10 MG NDC [id number] JENY Davenport 03/06/2019 Injection Kenalog 10 MG NDC [id number] JENY Davenport 05/09/2018 Injection Dexamethasone Sodium Phosphate, 1 MGInjection JENY Shay 05/09/2018 Injection Kenalog 10 MG NDC [id number] [place] Brandon PA-C 05/04/2017 Injection Dexamethasone Sodium Phosphate, 1 MGInjection [place] Brandon PA-C Immunizations CPT Code Status Date Vaccine Lot # [id number] Given 08/22/2022 Moderna Sars-Co v-2 (Covid-19) Vaccine, BiValent Booster [id number] 97194 Given 02/17/2022 Influenza Virus Vaccine, Quadrivalent (Cciiv4), Derived From Cell [id number] 00287 Given 05/26/2021 Shingrix [id number] 73115 Given 04/11/2021 Moderna Covid-19 Vaccine 50mcg Booster [id number] 33735 Given 04/11/2021 Influenza Virus Vaccine, Quadrivalent (Cciiv4), Derived From 2 Given 09/10/2020 Moderna Sars-Co v-2 (Covid-19) vaccine, 100 mcg/ 0.5 mL 12Y+ [id number] 84834 Given 08/13/2020 Moderna Sars-Co v-2 (Covid-19) vaccine, 100 mcg/ 0.5 mL 12Y+ [id number] 90018 Given 03/27/2019 Pneumococcal Vaccine/Pneu movax 23 [id number] 11642 Given 03/06/2019 Influenza Virus Vaccine, Quadrivalent (Cciiv4), Derived From 4 Given 02/14/2018 Influenza Vacci ne Quadrivalent Preser/Antibiotic Free Im Use [id number] 77523 Given 11/08/2017 Tdap (Tetanus, diphtheria & acel. pertussis) Adacel or Boostrix [id number] 00521 Given 11/08/2017 Pneumococcal Conjugate-Pr evnar 13 98843 Given 11/08/2017 Pneumococcal Conjugate-Pr evnar 13 [id number] 50631 Given 11/08/2017 Tdap (Tetanus, diphtheria & acel. pertussis) Adacel or Boostrix 47370 Given 02/17/2017 Influenza Vacci ne-Administered at another facility U-FLU Given 02/16/2014 Influenza,Unspecified 42832 Refused 07/24/2018 Shingrix 24094 Refused 07/12/2017 Zostavax Vaccine Vital Signs Date Vital Result Comment 12/21/2022 10:58am BP Systolic 120 mmHg BP Diastolic 62 mmHg Body Temperature 97.7 F Heart Rate 89 /min Respiratory Rate 16 /min Weight 101.12 lb Weight 45.870 kg Height 57 inches 4'9" BMI (Body Mass Index) 21.9 kg/m2 O2 % BldC Oximetry 99 % [place] Body Weight 100 lb 08/28/2022 3:48pm BP Systolic 124 mmHg BP Diastolic 82 mmHg Body Temperature 97.6 F Heart Rate 77 /min Respiratory Rate 14 /min Weight 102.00 lb Weight 46.267 kg Height 57 inches 4'9" BMI (Body Mass Index) 22.1 kg/m2 O2 % BldC Oximetry 98 % [place] Body Weight 100 lb Results Test Acquired Date Facility Test Result H/L Range N ote CBC W/Diff 12/26/2022 [facility] [address] [place] [address] [phone] WBC 4.9 10^3/M3 3.1-9.2 RBC 4.51 10^6/M3 3.70-5.50 HGB 13.4 GR/DL 11.5-16.1 HCT 41.0 % 34.5-47.8 MCV 90.9 CUMICR 82.6-95.8 MCH 29.6 PICOGR 27.9-32.9 MCHC 32.6 % 32.6-35.4 RDW 14.4 % 11.4-14.6 PLT 253 10^3/M3 140-350 MPV 9.7 CUMICR 7.0-10.6 %Neut 52.1 % 40.0-75.0 %Lymph 37.3 % 17.0-45.0 %[place] 7.5 % 1.0-11.0 %Eos 2.7 % 0.0-6.0 %Baso 0.4 % 0.0-2.0 #Neut 2.5 10^3/M3 1.5-8.0 #Lymph 1.8 10^3/M3 0.8-3.2 #[place] 0.4 10^3/M3 0.0-0.8 #Eos 0.1 10^3/m3 0.0-0.4 #Baso 0.0 10^3/m3 0.0-0.2 Comp. Met 12/26/2022 [facility] [address] [place] [address] [phone] Glucose 94 mg/dL 70-110 BUN 13 mg/dL [...] 2.0-3.4 GFR 101 ML/MIN/1.73SQM >60 Lipid 12/26/2022 [facility] [address] [place] [address] [phone] Cholesterol 183 mg/dL 0-200 1 Triglyceride 112 mg/dL 0-150 2 HDLD 50 mg/dL See Comment 3 Measured LDL 117 mg/dL 0-130 4 Calc VLDL 22.4 mg/dL See Comment 5 Chol/HDL 3.7 RATIO See Comment 6 Non-HDL 133 mg/dL See Comment 7 TSH With Reflex 12/26/2022 [facility] [address] [place] [address] [phone] TSH (Reflex) 0.43 uIU/mL Low 0.50-6.00 Laboratory test finding 12/26/2022 [facility] [address] [place] [address] [phone] Vitd-25Oh 19 ng/mL Low 30-100 FRT4 0.73 ng/dL Low 0.75-1.54 CBC W/Diff 12/21/2022 [facility] [address] [place] [address] [phone] WBC COMMENT 10^3/M3 3.1-9.2 RBC COMMENT 10^6/M3 3.70-5.50 HGB COMMENT GR/DL 11.5-16.1 HCT COMMENT % 34.5-47.8 MCV COMMENT CUMICR 82.6-95.8 MCH COMMENT PICOGR 27.9-32.9 MCHC COMMENT % 32.6-35.4 RDW COMMENT % 11.4-14.6 PLT COMMENT 10^3/M3 140-350 MPV COMMENT CUMICR 7.0-10.6 %Neut COMMENT % 40.0-75.0 %Lymph COMMENT % 17.0-45.0 %[place] COMMENT % 1.0-11.0 %Eos COMMENT % 0.0-6.0 %Baso COMMENT % 0.0-2.0 #Neut COMMENT 10^3/M3 1.5-8.0 #Lymph COMMENT 10^3/M3 0.8-3.2 #[place] COMMENT 10^3/M3 0.0-0.8 #Eos COMMENT 10^3/m3 0.0-0.4 #Baso COMMENT 10^3/m3 0.0-0.2 Comp. Met 12/21/2022 [facility] [address] [place] [address] [phone] Glucose COMMENT mg/dL 70-110 BUN COMMENT mg/dL [...] 2.0-3.4 GFR COMMENT Low >60 Lipid 12/21/2022 [facility] [address] [place] [address] [phone] Cholesterol COMMENT mg/dL 0-200 8 Triglyceride COMMENT mg/dL 0-150 HDLD COMMENT mg/dL See Comment Measured LDL COMMENT mg/dL 0-130 Calc VLDL COMMENT mg/dL See Comment Chol/HDL COMMENT RATIO See Comment Non-HDL COMMENT mg/dL See Comment TSH With Reflex 12/21/2022 [facility] [address] [place] [address] [phone] TSH (Reflex) COMMENT uIU/mL 0.50-6.00 Laboratory test finding 12/21/2022 [facility] [address] [place] [address] [phone] Vitd-25Oh COMMENT ng/mL 30-100 1 CHOLESTEROL Less [...] MOHSEN Procedures Date Code Description Status 12/26/2022 24541 Venipuncture Routine Complet ed 12/21/2022 11473 Venipuncture Routine Complet ed 12/21/2022 3078F PVRP [...] Systolic BP <130 mmHg C ompleted 01/03/2019 [id number] Mammogram Completed 08/13/2014 [id number] Colonoscopy Completed 02/28/2010 [id number] Colonoscopy Completed 02/02/2009 [id number] Bone Mineral Density Test Co mpleted Medical [...] 12/26/2022 K59.00 Constipation, unspecified [facility] - [place] 12/21/2022 K59.00 Constipation, unspecified Dominique Camara MD 12/21/2022 E78.5 Hyperlipidemia, unspecified Alice Camara MD 12/21/2022 I10 Essential (primary) hyperten srinivas Alice Camara MD 12/21/2022 M79.604 Pain in right [...] 1:30 pm - Alice Camara MD at [place] 12/21/2022 - Alice Camara MD* K59.00 Constipation, unspecified* Comments:* Drink plenty of fluid follow high fiber diet * Follow up:* f/up in 3 months * E78.5 Hyperlipidemia, unspecified * I10 Essential (primary) hypertension * M79.604 Pain in right leg Functional Status Description No Information Available Mental Status Description No Information Available Referrals Description No Information Available
--- OUTSIDE RECORDS SUMMARY | 2023-04-24 15:32 | External Medical Summary | Continuity of Care Document ---
Author Name Lab - [place] Address [address] [place] [address] Phone [phone] Organization [facility], Address [address] [place] [address] Phone [phone] Problems Active Problems Provider Date Essential hypertension [...] SIG Qnty Indications Order ing Provider Date Ggslbnk42OK/Scoop Powder take one scoop as directed daily as needed 119gm K59.00 Alice Camara MD 08/18/2022 Cyanocobalamin (Vit B-12) 1,000 mcg Sublingual1,000mcg Tablet Dissolve Three Tablet On The Tongue Once Daily 90tabs Alice Camara MD 01/13/2022 [facility] Vitamin S8117gio (49573 Ut) Capsules 1 by mouth every day 90caps Alice Camara MD 05/07/2021 Potassium Chloride UQ47Rtl Tablets ER Take One Tablet By Mouth Once Daily 90tabs Cam Hendricks MD 04/13/2021 Aspirin Adult Low Cgfv81tn Tablets DR 1 by mouth QHS 90tabs Cam Hendricks MD 05/07 Centrum AdultsTablets 1 by mouth QHS 90tabs Armand brenden Hendricks MD 05/17/2020 Escitalopram Olrbkop7lj Tablets take one-half tablet by mouth at bedtime 90tabs F41.1 Alice Camara MD 06/14/[address] Take One Tablet By Mouth Once Daily 30tabs Alice Camraa MD 05/13/2019 Donepezil HCL5mg Tablets Take One Tablet By Mouth Once Daily 28tabs Alice Camara MD 02/25/2019 Atorvastatin Kcqwfhy95zv Tablets take 1 tablet by mouth once daily at bedtime 90tabs E78.5 Alice Camara MD 12/06/2017 Fvhysnbatd02yg Tablets take 1 tablet by mouth once daily in the morning 90tabs I10 Alice Camara MD 04/12/2017 [facility] [place] [facility] 1units M54.5 Edwardo Hua DO 03/12/2017 Xiaepblxmk80xw Tablets Take 1 Tablet By Mouth Once Daily AT Bedtime 90tabs Alice Camara MD Medications Administered in Office Medication SIG Qnty Indications Ordering Provider Date Injection Kenalog 10 MG NDC [id number] JENY Davenport 03/06/2019 Injection Kenalog 10 MG NDC [id number] JENY Davenport 05/09/2018 Injection Dexamethasone Sodium Phosphate, 1 MGInjection JENY hSay 05/09/2018 Injection Kenalog 10 MG NDC [id number] [place] Brandon PA-C 05/04/2017 Injection Dexamethasone Sodium Phosphate, 1 MGInjection [place] Brandon PA-C Immunizations CPT Code Status Date Vaccine Lot # 15501 Given 08/22/2022 Moderna Sars-Co v-2 (Covid-19) Vaccine, BiValent Booster [id number] 95746 Given 02/17/2022 Influenza Virus Vaccine, Quadrivalent (Cciiv4), Derived From Cell [id number] 38161 Given 05/26/2021 Shingrix [id number] 43979 Given 04/11/2021 Moderna Covid-19 Vaccine 50mcg Booster [id number] 93360 Given 04/11/2021 Influenza Virus Vaccine, Quadrivalent (Cciiv4), Derived From 1 Given 09/10/2020 Moderna Sars-Co v-2 (Covid-19) vaccine, 100 mcg/ 0.5 mL 12Y+ [id number] 10732 Given 08/13/2020 Moderna Sars-Co v-2 (Covid-19) vaccine, 100 mcg/ 0.5 mL 12Y+ [id number] 56174 Given 03/27/2019 Pneumococcal Vaccine/Pneu movax 23 [id number] 53477 Given 03/06/2019 Influenza Virus Vaccine, Quadrivalent (Cciiv4), Derived From 7 Given 02/14/2018 Influenza Vacci ne Quadrivalent Preser/Antibiotic Free Im Use [id number] 78903 Given 11/08/2017 Tdap (Tetanus, diphtheria & acel. pertussis) Adacel or Boostrix [id number] 48600 Given 11/08/2017 Pneumococcal Conjugate-Pr evnar 13 71321 Given 11/08/2017 Pneumococcal Conjugate-Pr evnar 13 [id number] 50277 Given 11/08/2017 Tdap (Tetanus, diphtheria & acel. pertussis) Adacel or Boostrix 09060 Given 02/17/2017 Influenza Vacci ne-Administered at another facility U-FLU Given 02/16/2014 Influenza,Unspecified 32728 Refused 07/24/2018 Shingrix 23226 Refused 07/12/2017 Zostavax Vaccine Vital Signs Date Vital Result Comment 12/21/2022 10:58am BP Systolic 120 mmHg BP Diastolic 62 mmHg Body Temperature 97.7 F Heart Rate 89 /min Respiratory Rate 16 /min Weight 101.12 lb Weight 45.870 kg Height 57 inches 4'9" BMI (Body Mass Index) 21.9 kg/m2 O2 % BldC Oximetry 99 % [place] Body Weight 100 lb 08/28/2022 3:48pm BP Systolic 124 mmHg BP Diastolic 82 mmHg Body Temperature 97.6 F Heart Rate 77 /min Respiratory Rate 14 /min Weight 102.00 lb Weight 46.267 kg Height 57 inches 4'9" BMI (Body Mass Index) 22.1 kg/m2 O2 % BldC Oximetry 98 % [place] Body Weight 100 lb Results Test Acquired Date Facility Test Result H/L Range N ote CBC W/Diff 12/26/2022 [facility] [address] [place] [address] [phone] WBC 4.9 10^3/M3 3.1-9.2 RBC 4.51 10^6/M3 3.70-5.50 HGB 13.4 GR/DL 11.5-16.1 HCT 41.0 % 34.5-47.8 MCV 90.9 CUMICR 82.6-95.8 MCH 29.6 PICOGR 27.9-32.9 MCHC 32.6 % 32.6-35.4 RDW 14.4 % 11.4-14.6 PLT 253 10^3/M3 140-350 MPV 9.7 CUMICR 7.0-10.6 %Neut 52.1 % 40.0-75.0 %Lymph 37.3 % 17.0-45.0 %[place] 7.5 % 1.0-11.0 %Eos 2.7 % 0.0-6.0 %Baso 0.4 % 0.0-2.0 #Neut 2.5 10^3/M3 1.5-8.0 #Lymph 1.8 10^3/M3 0.8-3.2 #[place] 0.4 10^3/M3 0.0-0.8 #Eos 0.1 10^3/m3 0.0-0.4 #Baso 0.0 10^3/m3 0.0-0.2 Comp. Met 12/26/2022 [facility] [address] [place] [address] [phone] Glucose 94 mg/dL 70-110 BUN 13 mg/dL [...] 2.0-3.4 GFR 101 ML/MIN/1.73SQM >60 Lipid 12/26/2022 [facility] [address] [place] [address] [phone] Cholesterol 183 mg/dL 0-200 1 Triglyceride 112 mg/dL 0-150 2 HDLD 50 mg/dL See Comment 3 Measured LDL 117 mg/dL 0-130 4 Calc VLDL 22.4 mg/dL See Comment 5 Chol/HDL 3.7 RATIO See Comment 6 Non-HDL 133 mg/dL See Comment 7 TSH With Reflex 12/26/2022 [facility] [address] [place] [address] [phone] TSH (Reflex) 0.43 uIU/mL Low 0.50-6.00 Laboratory test finding 12/26/2022 [facility] [address] [place] [address] [phone] Vitd-25Oh 19 ng/mL Low 30-100 FRT4 0.73 ng/dL Low 0.75-1.54 CBC W/Diff 12/21/2022 [facility] [address] [place] [address] [phone] WBC COMMENT 10^3/M3 3.1-9.2 RBC COMMENT 10^6/M3 3.70-5.50 HGB COMMENT GR/DL 11.5-16.1 HCT COMMENT % 34.5-47.8 MCV COMMENT CUMICR 82.6-95.8 MCH COMMENT PICOGR 27.9-32.9 MCHC COMMENT % 32.6-35.4 RDW COMMENT % 11.4-14.6 PLT COMMENT 10^3/M3 140-350 MPV COMMENT CUMICR 7.0-10.6 %Neut COMMENT % 40.0-75.0 %Lymph COMMENT % 17.0-45.0 %[place] COMMENT % 1.0-11.0 %Eos COMMENT % 0.0-6.0 %Baso COMMENT % 0.0-2.0 #Neut COMMENT 10^3/M3 1.5-8.0 #Lymph COMMENT 10^3/M3 0.8-3.2 #[place] COMMENT 10^3/M3 0.0-0.8 #Eos COMMENT 10^3/m3 0.0-0.4 #Baso COMMENT 10^3/m3 0.0-0.2 Comp. Met 12/21/2022 [facility] [address] [place] [address] [phone] Glucose COMMENT mg/dL 70-110 BUN COMMENT mg/dL [...] GFR COMMENT Low >60 Lipid 12/21/2022 [facility] [address] [place] [address] [phone] Cholesterol COMMENT mg/dL 0-200 8 Triglyceride COMMENT mg/dL 0-150 HDLD COMMENT mg/dL See Comment Measured LDL COMMENT mg/dL 0-130 Calc VLDL COMMENT mg/dL See Comment Chol/HDL COMMENT RATIO See Comment Non-HDL COMMENT mg/dL See Comment TSH With Reflex 12/21/2022 [facility] [address] [place] [address] [phone] TSH (Reflex) COMMENT uIU/mL 0.50-6.00 Laboratory test finding 12/21/2022 [facility] [address] [place] [address] [phone] Vitd-25Oh COMMENT ng/mL 30-100 1 CHOLESTEROL Less [...] MOHSEN Procedures Date Code Description Status 12/26/2022 66209 Venipuncture Routine Complet ed 12/21/2022 17879 Venipuncture Routine Complet ed 12/21/2022 3078F PVRP [...] Systolic BP <130 mmHg C ompleted 01/03/2019 [id number] Mammogram Completed 08/13/2014 [id number] Colonoscopy Completed 02/28/2010 25160251 Colonoscopy Completed 02/02/2009 [id number] Bone Mineral Density Test Co mpleted Medical [...] Code Description Provider 12/26/2022 K59.00 Constipation, unspecified Dominique Camara MD 12/26/2022 K59.00 Constipation, unspecified La b - [place] 12/21/2022 K59.00 Constipation, unspecified Dominique Camara MD 12/21/2022 E78.5 Hyperlipidemia, unspecified Alice Camara MD 12/21/2022 I10 Essential (primary) hyperten srinivas Alice Camara MD 12/21/2022 M79.604 Pain in right leg Alice ty MD 08/28/2022 R19.7 Diarrhea, unspecified Tamanna Camara MD 08/22/2022 Z00.01 Encounter for ge neral adult medical examination with abnormal findings Alice Camara MD 08/22/2022 Z23 Encounter for immunization Fela Camara MD 08/22/2022 K59.00 Constipation, unspecified Dominique [...] Camara MD 07/04/2022 E78.5 Hyperlipidemia, unspecified Alice Camaar MD 07/04/2022 I10 Essential (primary) anali Camara MD 07/04/2022 K21.9 Gastro-esophagea l reflux disease without esophagitis Alice Camara MD Plan of Treatment Future Appointment(s):* 03/23/2023 1:30 pm - Alice Camara MD at [place] 12/21/2022 - Alice Camara MD* K59.00 Constipation, unspecified* Comments:* Drink plenty of fluid follow high fiber diet * Follow up:* f/up in 3 months * E78.5 Hyperlipidemia, unspecified * I10 Essential (primary) hypertension * M79.604 Pain in right leg Functional Status Description No Information Available Mental Status Description No Information Available Referrals Description No Information Available
--- OUTSIDE RECORDS SUMMARY | 2023-04-24 15:32 | External Medical Summary | Continuity of Care Document ---
Author Name ALF CAMARA MD Address [address] [place] [address] Phone [phone] [facility] Address [address] [place] [address] Phone [phone] Problems Active Problems Provider Date Essential hypertension [...] SIG Qnty Indications Order ing Provider Date Krmyxgd24SN/Scoop Powder take one scoop as directed daily as needed 119gm K59.00 Alf Camara MD 08/18/2022 Cyanocobalamin (Vit B-12) 1,000 mcg Sublingual1,000mcg Tablet Dissolve Three Tablet On The Tongue Once Daily 90tabs Alf Camara MD 01/13/2022 [facility] Vitamin [id number] (21669 Ut) Capsules 1 by mouth every day 90caps Alf Camara MD 05/07/2021 Potassium Chloride WE14Tns Tablets ER Take One Tablet By Mouth Once Daily 90tabs Cam Hendricks MD 04/13/2021 Aspirin Adult Low Yyll77mq Tablets DR 1 by mouth QHS 90tabs Cam Hendricks MD 05/07 Centrum AdultsTablets 1 by mouth QHS 90tabs Armand brenden Hendricks MD 05/17/2020 Escitalopram Rjqowzh6he Tablets take one-half tablet by mouth at bedtime 90tabs F41.1 Alf Camara MD 06/14/[address] Take One Tablet By Mouth Once Daily 30tabs Alf Camara MD 05/13/2019 Donepezil HCL5mg Tablets Take One Tablet By Mouth Once Daily 28tabs Alf Camara MD 02/25/2019 Atorvastatin Cevuyuw60ye Tablets take 1 tablet by mouth once daily at bedtime 90tabs E78.5 Alf Camara MD 12/06/2017 Nvxlqlgauo74ag Tablets take 1 tablet by mouth once daily in the morning 90tabs I10 Alf Camara MD [facility]12[facility] 1units M54.5 Edwardo Hau DO 03/12/2017 Jvgddlcapf38pq Tablets Take 1 Tablet By Mouth Once Daily AT Bedtime 90tabs Alf Camara MD Medications Administered in Office Medication SIG Qnty Indications Ordering Provider Date Injection Kenalog 10 MG NDC [id number] JENY Davenport 03/06/2019 Injection Kenalog 10 MG NDC [id number] JENY Davenport 05/09/2018 Injection Dexamethasone Sodium Phosphate, 1 MGInjection JENY Shay 05/09/2018 Injection Kenalog 10 MG NDC [id number] Flordia Brandon PA-C 05/04/2017 Injection Dexamethasone Sodium Phosphate, 1 MGInjection [place] Brandon PA-C Immunizations CPT Code Status Date Vaccine Lot # [id number] Given 08/22/2022 Moderna Sars-Co v-2 (Covid-19) Vaccine, BiValent Booster [id number] 08290 Given 02/17/2022 Influenza Virus Vaccine, Quadrivalent (Cciiv4), Derived From Cell [id number] 74105 Given 05/26/2021 Shingrix [id number] 03721 Given 04/11/2021 Moderna Covid-1 9 Vaccine 50mcg Booster-EMR Doc Only [id number] 34060 Given 04/11/2021 Influenza Virus Vaccine, Quadrivalent (Cciiv4), Derived From 0 Given 09/10/2020 Moderna Sars-Co v-2 (Cov-19) vacc,100 mcg/ 0.5 mL 12Y+EMR Doc Only [id number] 56587 Given 08/13/2020 Moderna Sars-Co v-2 (Cov-19) vacc,100 mcg/ 0.5 mL 12Y+EMR Doc Only [id number] 78906 Given 03/27/2019 Pneumococcal Vaccine/Pneu movax 23 [id number] 51533 Given 03/06/2019 Influenza Virus Vaccine, Quadrivalent (Cciiv4), Derived From 7 Given 02/14/2018 Influenza Vacci ne Quadrivalent Preser/Antibiotic Free Im Use [id number] 31619 Given 11/08/2017 Tdap (Tetanus, diphtheria & acel. pertussis) Adacel or Boostrix [id number] 95732 Given 11/08/2017 Pneumococcal Conjugate-Pr evnar 13 66995 Given 11/08/2017 Pneumococcal Conjugate-Pr evnar 13 [id number] 20324 Given 11/08/2017 Tdap (Tetanus, diphtheria & acel. pertussis) Adacel or Boostrix 41938 Given 02/17/2017 Influenza Vacci ne-Administered at another facility U-FLU Given 02/16/2014 Influenza,Unspecified [id number] Refused 07/24/2018 Shingrix 64925 Refused 07/12/2017 Zostavax Vaccine Vital Signs Date [...] kg/m2 O2 % BldC Oximetry 99 % [place] Body Weight 100 lb Results Test Acquired Date Facility Test Result H/L Range N ote Sars Coronavirus Rna QL PCR 04/02/2023 [facility] (In Office Test) Sars Rna QL PCR Unspec Spec Not Detected CBC W/Diff 12/26/2022 [facility] [address] [place] [address] WBC 4.9 10^3/M3 3.1-9.2 RBC 4.51 10^6/M3 3.70-5.50 HGB 13.4 GR/DL 11.5-16.1 HCT 41.0 % 34.5-47.8 MCV 90.9 CUMICR 82.6-95.8 MCH 29.6 PICOGR 27.9-32.9 MCHC 32.6 % 32.6-35.4 RDW 14.4 % 11.4-14.6 PLT 253 10^3/M3 140-350 MPV 9.7 CUMICR 7.0-10.6 %Neut 52.1 % 40.0-75.0 %Lymph 37.3 % 17.0-45.0 %[place] 7.5 % 1.0-11.0 %Eos 2.7 % 0.0-6.0 %Baso 0.4 % 0.0-2.0 #Neut 2.5 10^3/M3 1.5-8.0 #Lymph 1.8 10^3/M3 0.8-3.2 #[place] 0.4 10^3/M3 0.0-0.8 #Eos 0.1 10^3/m3 0.0-0.4 #Baso 0.0 10^3/m3 0.0-0.2 Comp. Met 12/26/2022 [facility] [address] [place], [place] [id number] [phone] Glucose 94 mg/dL 70-110 BUN 13 mg/dL [...] 2.0-3.4 GFR 101 ML/MIN/1.73SQM >60 Lipid 12/26/2022 [facility] [address] [place] [address] [phone] Cholesterol 183 mg/dL 0-200 1 Triglyceride 112 mg/dL 0-150 2 HDLD 50 mg/dL See Comment 3 Measured LDL 117 mg/dL 0-130 4 Calc VLDL 22.4 mg/dL See Comment 5 Chol/HDL 3.7 RATIO See Comment 6 Non-HDL 133 mg/dL See Comment 7 TSH With Reflex 12/26/2022 [facility] [address] [place] [address] [phone] TSH (Reflex) 0.43 uIU/mL Low 0.50-6.00 Laboratory test finding 12/26/2022 [facility] [address] [place], [place] [id number] [phone] Vitd-25Oh 19 ng/mL Low 30-100 FRT4 0.73 ng/dL Low 0.75-1.54 CBC W/Diff 12/21/2022 [facility] [address] [place] [address] [phone] WBC COMMENT 10^3/M3 3.1-9.2 RBC COMMENT 10^6/M3 3.70-5.50 HGB COMMENT GR/DL 11.5-16.1 HCT COMMENT % 34.5-47.8 MCV COMMENT CUMICR 82.6-95.8 MCH COMMENT PICOGR 27.9-32.9 MCHC COMMENT % 32.6-35.4 RDW COMMENT % 11.4-14.6 PLT COMMENT 10^3/M3 140-350 MPV COMMENT CUMICR 7.0-10.6 %Neut COMMENT % 40.0-75.0 %Lymph COMMENT % 17.0-45.0 %[place] COMMENT % 1.0-11.0 %Eos COMMENT % 0.0-6.0 %Baso COMMENT % 0.0-2.0 #Neut COMMENT 10^3/M3 1.5-8.0 #Lymph COMMENT 10^3/M3 0.8-3.2 #[place] COMMENT 10^3/M3 0.0-0.8 #Eos COMMENT 10^3/m3 0.0-0.4 #Baso COMMENT 10^3/m3 0.0-0.2 Comp. Met 12/21/2022 [facility] [address] [place], [place] [address] [phone] Glucose COMMENT mg/dL 70-110 BUN COMMENT mg/dL [...] 2.0-3.4 GFR COMMENT Low >60 Lipid 12/21/2022 [facility] [address] [place] [address] [phone] Cholesterol COMMENT mg/dL 0-200 8 Triglyceride COMMENT mg/dL 0-150 HDLD COMMENT mg/dL See Comment Measured LDL COMMENT mg/dL 0-130 Calc VLDL COMMENT mg/dL See Comment Chol/HDL COMMENT RATIO See Comment Non-HDL COMMENT mg/dL See Comment TSH With Reflex 12/21/2022 [facility] [address] [place] [address] [phone] TSH (Reflex) COMMENT uIU/mL 0.50-6.00 Laboratory test finding 12/21/2022 [facility] [address] [place] [address] [phone] Vitd-25Oh COMMENT ng/mL 30-100 1 CHOLESTEROL Less [...] MOHSEN Procedures Date Code Description Status 12/26/2022 57174 Venipuncture Routine Complet ed 12/21/2022 22276 Venipuncture Routine Complet ed 12/21/2022 3078F PVRP Diastolic BP <80 mmHg C ompleted 12/21/2022 3074F PVRP Systolic BP <130 mmHg C ompleted 01/03/2019 [id number] Mammogram Completed 08/13/2014 [id number] Colonoscopy Completed 02/28/2010 [id number] Colonoscopy Completed 02/02/2009 [id number] Bone Mineral Density Test Co mpleted Medical Devices Description No Information Available Encounters Type Date Location Provider Dx Diagnosis Office Visit 12/21/2022 11:30a [place] Alf Camara MD K59.00 Constipation, unspecified E78.5 [...]
--- OUTSIDE RECORDS SUMMARY | 2023-04-24 15:32 | External Medical Summary | Continuity of Care Document ---
Author Name ALF CAMARA MD Address [address] [place] [address] Phone [phone] [facility] Address [address] [place] [address] Phone [phone] Problems Active Problems Provider Date Essential hypertension [...] SIG Qnty Indications Order ing Provider Date Vzmnevp80PA/Scoop Powder take one scoop as directed daily as needed 119gm K59.00 Alf Camara MD 08/18/2022 Cyanocobalamin (Vit B-12) 1,000 mcg Sublingual1,000mcg Tablet Dissolve Three Tablet On The Tongue Once Daily 90tabs Alf Camara MD 01/13/2022 [facility] Vitamin S1940wvt (46624 Ut) Capsules 1 by mouth every day 90caps Alf Camara MD 05/07/2021 Potassium Chloride KN44Zlz Tablets ER Take One Tablet By Mouth Once Daily 90tabs Cam Hendricks MD 04/13/2021 Aspirin Adult Low Gqio22db Tablets DR 1 by mouth QHS 90tabs Cam Hendricks MD 05/07 Centrum AdultsTablets 1 by mouth QHS 90tabs Armand brenden Hendricks MD 05/17/2020 Escitalopram Rngdoyl1zc Tablets take one-half tablet by mouth at bedtime 90tabs F41.1 Alf Camara MD 06/14/[address] Take One Tablet By Mouth Once Daily 30tabs Alf Camara MD 05/13/2019 Donepezil HCL5mg Tablets Take One Tablet By Mouth Once Daily 28tabs Alf Camara MD 02/25/2019 Atorvastatin Vozetlo75ea Tablets take 1 tablet by mouth once daily at bedtime 90tabs E78.5 Alf Camara MD 12/06/2017 Icbjuswkoq23du Tablets take 1 tablet by mouth once daily in the morning 90tabs I10 Alf Camara MD 04/12/[facility] 1units M54.5 Edwardo Hua DO 03/12/2017 Youlepifhe86xv Tablets Take 1 Tablet By Mouth Once Daily AT Bedtime 90tabs Alf Camara MD Medications Administered in Office Medication SIG Qnty Indications Ordering Provider Date Injection Kenalog 10 MG NDC [id number] JENY Davenport 03/06/2019 Injection Kenalog 10 MG NDC [id number] JENY Davenport 05/09/2018 Injection Dexamethasone Sodium Phosphate, 1 MGInjection JENY Shay 05/09/2018 Injection Kenalog 10 MG NDC 00973443572Xgrgvabrr [place] Brandon PA-C 05/04/2017 Injection Dexamethasone Sodium Phosphate, 1 MGInjection [place] Brandon PA-C Immunizations CPT Code Status Date Vaccine Lot # 70050 Given 08/22/2022 Moderna Sars-Co v-2 (Covid-19) Vaccine, BiValent Booster 12y+ [id number] 35067 Given 02/17/2022 Influenza Virus Vaccine, Quadrivalent (Cciiv4), Derived From Cell [id number] 94748 Given 05/26/2021 Shingrix [id number] 50926 Given 04/11/2021 Moderna Covid-1 9 Vaccine 50mcg Booster-EMR Doc Only [id number] 27304 Given 04/11/2021 Influenza Virus Vaccine, Quadrivalent (Cciiv4), Derived From 0 Given 09/10/2020 Moderna Sars-Co v-2 (Cov-19) vacc,100 mcg/ 0.5 mL 12Y+EMR Doc Only [id number] 34682 Given 08/13/2020 Moderna Sars-Co v-2 (Cov-19) vacc,100 mcg/ 0.5 mL 12Y+EMR Doc Only [id number] 98190 Given 03/27/2019 Pneumococcal Vaccine/Pneu movax 23 [id number] 65955 Given 03/06/2019 Influenza Virus Vaccine, Quadrivalent (Cciiv4), Derived From 3 Given 02/14/2018 Influenza Vacci ne Quadrivalent Preser/Antibiotic Free Im Use [id number] 76810 Given 11/08/2017 Tdap (Tetanus, diphtheria & acel. pertussis) Adacel or Boostrix [id number] 31674 Given 11/08/2017 Pneumococcal Conjugate-Pr evnar 13 86053 Given 11/08/2017 Pneumococcal Conjugate-Pr evnar 13 [id number] 91094 Given 11/08/2017 Tdap (Tetanus, diphtheria & acel. pertussis) Adacel or Boostrix 59581 Given 02/17/2017 Influenza Vacci ne-Administered at another facility U-FLU Given 02/16/2014 Influenza,Unspecified 42108 Refused 07/24/2018 Shingrix 25708 Refused 07/12/2017 Zostavax Vaccine Vital Signs Date [...] kg/m2 O2 % BldC Oximetry 99 % [place] Body Weight 100 lb Results Test Acquired Date Facility Test Result H/L Range N ote Sars Coronavirus Rna QL PCR 04/02/2023 [facility] (In Office Test) Sars Rna QL PCR Unspec Spec Not Detected CBC W/Diff 12/26/2022 [facility]. [address] [place] [address] [phone] WBC 4.9 10^3/M3 3.1-9.2 RBC 4.51 10^6/M3 3.70-5.50 HGB 13.4 GR/DL 11.5-16.1 HCT 41.0 % 34.5-47.8 MCV 90.9 CUMICR 82.6-95.8 MCH 29.6 PICOGR 27.9-32.9 MCHC 32.6 % 32.6-35.4 RDW 14.4 % 11.4-14.6 PLT 253 10^3/M3 140-350 MPV 9.7 CUMICR 7.0-10.6 %Neut 52.1 % 40.0-75.0 %Lymph 37.3 % 17.0-45.0 %[place] 7.5 % 1.0-11.0 %Eos 2.7 % 0.0-6.0 %Baso 0.4 % 0.0-2.0 #Neut 2.5 10^3/M3 1.5-8.0 #Lymph 1.8 10^3/M3 0.8-3.2 #Andrews 0.4 10^3/M3 0.0-0.8 #Eos 0.1 10^3/m3 0.0-0.4 #Baso 0.0 10^3/m3 0.0-0.2 Comp. Met 12/26/2022 [facility]. [address] [place], [place] [address] [phone] Glucose 94 mg/dL 70-110 BUN 13 mg/dL [...] 2.0-3.4 GFR 101 ML/MIN/1.73SQM >60 Lipid 12/26/2022 [facility]. [address] [place] [address] [phone] Cholesterol 183 mg/dL 0-200 1 Triglyceride 112 mg/dL 0-150 2 HDLD 50 mg/dL See Comment 3 Measured LDL 117 mg/dL 0-130 4 Calc VLDL 22.4 mg/dL See Comment 5 Chol/HDL 3.7 RATIO See Comment 6 Non-HDL 133 mg/dL See Comment 7 TSH With Reflex 12/26/2022 [facility] [address] [place] [address] [phone] TSH (Reflex) 0.43 uIU/mL Low 0.50-6.00 Laboratory test finding 12/26/2022 [facility] [address] [place], [place] [address] [phone] Vitd-25Oh 19 ng/mL Low 30-100 FRT4 0.73 ng/dL Low 0.75-1.54 CBC W/Diff 12/21/2022 [facility]. [address] [place] [address] [phone] WBC COMMENT 10^3/M3 3.1-9.2 RBC COMMENT 10^6/M3 3.70-5.50 HGB COMMENT GR/DL 11.5-16.1 HCT COMMENT % 34.5-47.8 MCV COMMENT CUMICR 82.6-95.8 MCH COMMENT PICOGR 27.9-32.9 MCHC COMMENT % 32.6-35.4 RDW COMMENT % 11.4-14.6 PLT COMMENT 10^3/M3 140-350 MPV COMMENT CUMICR 7.0-10.6 %Neut COMMENT % 40.0-75.0 %Lymph COMMENT % 17.0-45.0 %Andrews COMMENT % 1.0-11.0 %Eos COMMENT % 0.0-6.0 %Baso COMMENT % 0.0-2.0 #Neut COMMENT 10^3/M3 1.5-8.0 #Lymph COMMENT 10^3/M3 0.8-3.2 #Andrews COMMENT 10^3/M3 0.0-0.8 #Eos COMMENT 10^3/m3 0.0-0.4 #Baso COMMENT 10^3/m3 0.0-0.2 Comp. Met 12/21/2022 [facility]. [address] [place], [place] [address] [phone] Glucose COMMENT mg/dL 70-110 BUN COMMENT mg/dL [...] 2.0-3.4 GFR COMMENT Low >60 Lipid 12/21/2022 [facility]. [address] [place] [address] [phone] Cholesterol COMMENT mg/dL 0-200 8 Triglyceride COMMENT mg/dL 0-150 HDLD COMMENT mg/dL See Comment Measured LDL COMMENT mg/dL 0-130 Calc VLDL COMMENT mg/dL See Comment Chol/HDL COMMENT RATIO See Comment Non-HDL COMMENT mg/dL See Comment TSH With Reflex 12/21/2022 [facility] [address] [place] [address] [phone] TSH (Reflex) COMMENT uIU/mL 0.50-6.00 Laboratory test finding 12/21/2022 [facility] [address] [place] [address] [phone] Vitd-25Oh COMMENT ng/mL 30-100 1 CHOLESTEROL Less [...] MOHSEN Procedures Date Code Description Status 12/26/2022 62869 Venipuncture Routine Complet ed 12/21/2022 91089 Venipuncture Routine Complet ed 12/21/2022 3078F PVRP Diastolic BP <80 mmHg C ompleted 12/21/2022 3074F PVRP Systolic BP <130 mmHg C ompleted 01/03/2019 89669290 Mammogram Completed 08/13/2014 58193530 Colonoscopy Completed 02/28/2010 73216683 Colonoscopy Completed 02/02/2009 784482120 Bone Mineral Density Test Co mpleted Medical Devices Description No Information Available Encounters Type Date Location Provider Dx Diagnosis Office Visit 12/21/2022 11:30a [place] Alf Camara MD K59.00 Constipation, unspecified E78.5 Hyperlipidemia, unsp ecified I10 Essential (primary) hypertension M79.604 Pain in right leg Assessments Date Code Description Provider 04/02/2023 R53.83 Other fatigue Alf Camara MD 04/02/2023 R35.0 Frequency of micturition Juan Miguel Camara MD 12/26/2022 K59.00 Constipation, unspecified Dominique Camara MD 12/26/2022 K59.00 Constipation, unspecified [place] - Melisa Schmitt 12/21/2022 K59.00 Constipation, unspecified Dominique Camraa MD 12/21/2022 E78.5 Hyperlipidemia, unspecified Alf Camara [...]
--- OUTSIDE RECORDS SUMMARY | 2023-04-24 15:32 | External Medical Summary ---
Author Name Unknown Address Unknown Organization R1WR:[facility] [address] [place] [address] Laboratory Report Ordering Provider Test Date Status KENDRA MILNER 04/02/2023 10:45:00 Final Observation Date Value Abnormality Reference (Units ) Status T4 04/02/2023 17:03 12.3 3.2-12.6 (ug/ dL) Final This test should not be used as the only marker for evaluating patients for thyroid disorders because of the potential for erroneously low recovery in this patient population. Performing Location [facility] [address] [place] [address]
--- OUTSIDE RECORDS SUMMARY | 2023-04-24 15:32 | External Medical Summary ---
Author Name Unknown Address Unknown Organization R1WR:[facility] [address] [place] [address] Laboratory Report Ordering Provider Test Date Status KENDRA MILNER 04/02/2023 10:46:00 Final Observation Date Value Abnormality Reference (Units) Status Specimen Description 04/02/2023 11:41 Urine Final Special Requests 04/02/2023 11:41 None Reflexed from [id number] Final Culture 04/04/2023 08:59 Greater than 100,000 cfu/ml Escherichia coli Final 50,000-100,000 cfu/mL Mixed Celmentina Report Status 04/04/2023 08:59 Final Result 04/04/2023 Final Organism 04/04/2023 08:59 Greater than 10 0,000 cfu/ml Escherichia coli Final METHOD 04/04/2023 08:59 Microscan ANUSHKA-u g/ml (ALINA) Final Ampicillin 04/04/2023 08:59 <=8 Sensitive Susceptible Final Aztreonam 04/04/2023 08:59 <=4 Sensitive Susceptible Final Cefazolin 04/04/2023 08:59 <=2 Sensitive Susceptible Final Ciprofloxacin 04/04/2023 08:59 <=0.25 Sensitive Susceptible Final Ertapenem 04/04/2023 08:59 <=0.5 Sensitive Susceptible Final Gentamicin 04/04/2023 08:59 <=2 Sensitive Susceptible Final Levofloxacin 04/04/2023 08:59 <=0.5 Sensitive Susceptible Final Meropenem 04/04/2023 08:59 <=1 Sensitive Susceptible Final Nitrofurantoin 04/04/2023 08:59 <=32 Sensitive Susceptible Final Piperacillin/Tazobactam 04/04/2023 08:59 <=8 Sensitive Susce ptible Final Tetracycline 04/04/2023 08:59 <=4 Sensitive Susceptible Final Tobramycin 04/04/2023 08:59 <=2 Sensitive Susceptible Final Sulfa/Trimethoprim 04/04/2023 08:59 <=0.5/9.5 Sensitive Susc eptible Final Ampicillin/Sulbactam 04/04/2023 08:59 <=4/2 Sensitive Wisam loredo Final Performing Location [facility] [address] [facility] [place] [address]
--- OUTSIDE RECORDS SUMMARY | 2023-04-24 15:32 | External Medical Summary ---
Author Name Unknown Address Unknown Organization RRRR:[facility] Laboratory Report Ordering Provider Test Date Status KENDRA MILNER 04/02/2023 10:45:00 Final Observation Date Value Abnormality Reference (Units ) Status TSH 04/02/2023 11:48 1.62 0.45-5.33 (uI U/mL) Final Performing Location [facility]
--- OUTSIDE RECORDS SUMMARY | 2023-04-24 15:32 | External Medical Summary | Continuity of Care Document ---
Author Name ALF CAMARA MD Address [address] [place] [address] Phone [phone] [facility] Address [address] [place] [address] Phone [phone] Problems Active Problems Provider Date Essential hypertension [...] SIG Qnty Indications Order ing Provider Date Lziikmj52TZ/Scoop Powder take one scoop as directed daily as needed 119gm K59.00 Alf Camara MD 08/18/2022 Cyanocobalamin (Vit B-12) 1,000 mcg Sublingual1,000mcg Tablet Dissolve Three Tablet On The Tongue Once Daily 90tabs Alf Camara MD 01/13/2022 [facility] Vitamin S7962hog (67903 Ut) Capsules 1 by mouth every day 90caps Alf Camara MD 05/07/2021 Potassium Chloride JI70Ucm Tablets ER Take One Tablet By Mouth Once Daily 90tabs Cam Hendricks MD 04/13/2021 Aspirin Adult Low Dhah98cy Tablets DR 1 by mouth QHS 90tabs Cam Hendricks MD 05/07 Centrum AdultsTablets 1 by mouth QHS 90tabs Armand brenden Hendricks MD 05/17/2020 Escitalopram Vlqlene7mg Tablets take one-half tablet by mouth at bedtime 90tabs F41.1 Alf Camara MD 06/14/[address] Take One Tablet By Mouth Once Daily 30tabs Alf Camara MD 05/13/2019 Donepezil HCL5mg Tablets Take One Tablet By Mouth Once Daily 28tabs Alf Camara MD 02/25/2019 Atorvastatin Iywoclm75ky Tablets take 1 tablet by mouth once daily at bedtime 90tabs E78.5 Alf Camara MD 12/06/2017 Kycoqixphx40bt Tablets take 1 tablet by mouth once daily in the morning 90tabs I10 Alf Camara MD 04/12/2017 [facility] 1units M54.5 Edwardo Hua DO 03/12/2017 Ybogchzonq77ge Tablets Take 1 Tablet By Mouth Once Daily AT Bedtime 90tabs Alf Camara MD Medications Administered in Office Medication SIG Qnty Indications Ordering Provider Date Injection Kenalog 10 MG NDC [id number] JENY Davenport 03/06/2019 Injection Kenalog 10 MG NDC [id number] JENY Davenport 05/09/2018 Injection Dexamethasone Sodium Phosphate, 1 MGInjection JENY Shay 05/09/2018 Injection Kenalog 10 MG NDC [id number] [place] Brandon PA-C 05/04/2017 Injection Dexamethasone Sodium Phosphate, 1 MGInjection [place] Brandon PA-C Immunizations CPT Code Status Date Vaccine Lot # 30095 Given 08/22/2022 Moderna Sars-Co v-2 (Covid-19) Vaccine, BiValent Booster 12y+ [id number] 04119 Given 02/17/2022 Influenza Virus Vaccine, Quadrivalent (Cciiv4), Derived From Cell [id number] 25001 Given 05/26/2021 Shingrix [id number] 44666 Given 04/11/2021 Moderna Covid-1 9 Vaccine 50mcg Booster-EMR Doc Only [id number] 25435 Given 04/11/2021 Influenza Virus Vaccine, Quadrivalent (Cciiv4), Derived From 4 Given 09/10/2020 Moderna Sars-Co v-2 (Cov-19) vacc,100 mcg/ 0.5 mL 12Y+EMR Doc Only [id number] 87624 Given 08/13/2020 Moderna Sars-Co v-2 (Cov-19) vacc,100 mcg/ 0.5 mL 12Y+EMR Doc Only [id number] 57082 Given 03/27/2019 Pneumococcal Vaccine/Pneu movax 23 [id number] 90883 Given 03/06/2019 Influenza Virus Vaccine, Quadrivalent (Cciiv4), Derived From 4 Given 02/14/2018 Influenza Vacci ne Quadrivalent Preser/Antibiotic Free Im Use [id number] 65246 Given 11/08/2017 Tdap (Tetanus, diphtheria & acel. pertussis) Adacel or Boostrix [id number] 78572 Given 11/08/2017 Pneumococcal Conjugate-Pr evnar 13 26509 Given 11/08/2017 Pneumococcal Conjugate-Pr evnar 13 [id number] 68837 Given 11/08/2017 Tdap (Tetanus, diphtheria & acel. pertussis) Adacel or Boostrix 90722 Given 02/17/2017 Influenza Vacci ne-Administered at another facility U-FLU Given 02/16/2014 Influenza,Unspecified [id number] Refused 07/24/2018 Shingrix 02364 Refused 07/12/2017 Zostavax Vaccine Vital Signs Date [...] kg/m2 O2 % BldC Oximetry 99 % [place] Body Weight 100 lb Results Test Acquired Date Facility Test Result H/L Range N ote Sars Coronavirus Rna QL PCR 04/02/2023 [facility] (In Office Test) Sars Rna QL PCR Unspec Spec Not Detected CBC W/Diff 12/26/2022 [facility] [address] [place] [address] [phone] 1 WBC 4.9 10^3/M3 3.1-9.2 RBC 4.51 10^6/M3 3.70-5.50 HGB 13.4 GR/DL 11.5-16.1 HCT 41.0 % 34.5-47.8 MCV 90.9 CUMICR 82.6-95.8 MCH 29.6 PICOGR 27.9-32.9 MCHC 32.6 % 32.6-35.4 RDW 14.4 % 11.4-14.6 PLT 253 10^3/M3 140-350 MPV 9.7 CUMICR 7.0-10.6 %Neut 52.1 % 40.0-75.0 %Lymph 37.3 % 17.0-45.0 %Martin 7.5 % 1.0-11.0 %Eos 2.7 % 0.0-6.0 %Baso 0.4 % 0.0-2.0 #Neut 2.5 10^3/M3 1.5-8.0 #Lymph 1.8 10^3/M3 0.8-3.2 #Martin 0.4 10^3/M3 0.0-0.8 #Eos 0.1 10^3/m3 0.0-0.4 #Baso 0.0 10^3/m3 0.0-0.2 Comp. Met 12/26/2022 [facility] [address] [place], [place] [id number] [phone] Glucose 94 mg/dL 70-110 BUN 13 mg/dL [...] 2.0-3.4 GFR 101 ML/MIN/1.73SQM >60 Lipid 12/26/2022 [facility] [address] [place] [address] [phone] Cholesterol 183 mg/dL 0-200 1 Triglyceride 112 mg/dL 0-150 2 HDLD 50 mg/dL See Comment 3 Measured LDL 117 mg/dL 0-130 4 Calc VLDL 22.4 mg/dL See Comment 5 Chol/HDL 3.7 RATIO See Comment 6 Non-HDL 133 mg/dL See Comment 7 TSH With Reflex 12/26/2022 [facility] [address] [place] [address] [phone] TSH (Reflex) 0.43 uIU/mL Low 0.50-6.00 Laboratory test finding 12/26/2022 [facility] [address] [place], [place] [id number] [phone] Vitd-25Oh 19 ng/mL Low 30-100 FRT4 0.73 ng/dL Low 0.75-1.54 CBC W/Diff 12/21/2022 [facility]. [address] [place] [address] [phone] WBC COMMENT 10^3/M3 3.1-9.2 RBC COMMENT 10^6/M3 3.70-5.50 HGB COMMENT GR/DL 11.5-16.1 HCT COMMENT % 34.5-47.8 MCV COMMENT CUMICR 82.6-95.8 MCH COMMENT PICOGR 27.9-32.9 MCHC COMMENT % 32.6-35.4 RDW COMMENT % 11.4-14.6 PLT COMMENT 10^3/M3 140-350 MPV COMMENT CUMICR 7.0-10.6 %Neut COMMENT % 40.0-75.0 %Lymph COMMENT % 17.0-45.0 %Martin COMMENT % 1.0-11.0 %Eos COMMENT % 0.0-6.0 %Baso COMMENT % 0.0-2.0 #Neut COMMENT 10^3/M3 1.5-8.0 #Lymph COMMENT 10^3/M3 0.8-3.2 #Martin COMMENT 10^3/M3 0.0-0.8 #Eos COMMENT 10^3/m3 0.0-0.4 #Baso COMMENT 10^3/m3 0.0-0.2 Comp. Met 12/21/2022 [facility] [address] [place], [place] [address] [phone] Glucose COMMENT mg/dL 70-110 BUN COMMENT mg/dL [...] 2.0-3.4 GFR COMMENT Low >60 Lipid 12/21/2022 [facility] [address] [place] [address] [phone] Cholesterol COMMENT mg/dL 0-200 8 Triglyceride COMMENT mg/dL 0-150 HDLD COMMENT mg/dL See Comment Measured LDL COMMENT mg/dL 0-130 Calc VLDL COMMENT mg/dL See Comment Chol/HDL COMMENT RATIO See Comment Non-HDL COMMENT mg/dL See Comment TSH With Reflex 12/21/2022 [facility] [address] [place] [address] [phone] TSH (Reflex) COMMENT uIU/mL 0.50-6.00 Laboratory test finding 12/21/2022 [facility] [address] [place] [address] [phone] Vitd-25Oh COMMENT ng/mL 30-100 1 CHOLESTEROL Less [...] MOHSEN Procedures Date Code Description Status 12/26/2022 95900 Venipuncture Routine Complet ed 12/21/2022 03684 Venipuncture Routine Complet ed 12/21/2022 3078F PVRP Diastolic BP <80 mmHg C ompleted 12/21/2022 3074F PVRP Systolic BP <130 mmHg C ompleted 01/03/2019 [id number] Mammogram Completed 08/13/2014 [id number] Colonoscopy Completed 02/28/2010 84263866 Colonoscopy Completed 02/02/2009 [id number] Bone Mineral Density Test Co mpleted Medical Devices Description No Information Available Encounters Type Date Location Provider Dx Diagnosis Office Visit 12/21/2022 11:30a [place] Alf Camara MD K59.00 Constipation, unspecified E78.5 [...]
--- OUTSIDE RECORDS SUMMARY | 2023-04-24 15:32 | External Medical Summary ---
Author Name Unknown Address Unknown Organization [id number] [address] [place] [address] Laboratory Report Ordering Provider Test Date Status KENDRA MILNER 04/02/2023 10:46:00 Final Observation Date Value Abnormality Reference (Units ) Status Urine WBC 04/02/2023 11:41 >100 Abnormal ZTF (/hpf) Fi nal Urine RBC 04/02/2023 11:41 0-4 ZTFR (/hpf) F inal Urine Bacteria 04/02/2023 11:41 Many Abnormal NONE (/h pf) Final Epithelial Cells 04/02/2023 11:41 10-20 Abnormal ZTF (/ lpf) Final Performing Location [facility] [address] [place] [address]
--- OUTSIDE RECORDS SUMMARY | 2023-04-24 15:33 | External Medical Summary | Continuity of Care Document ---
Author Name ALICE CAMARA MD Address [address] [place] [address] Phone [phone] [facility] Address [address] [place] [address] Phone [phone] Problems Active Problems Provider Date Essential hypertension [...] SIG Qnty Indications Order ing Provider Date Qgtqoyu56RY/Scoop Powder take one scoop as directed daily as needed 119gm K59.00 Alice Camara MD 08/18/2022 Cyanocobalamin (Vit B-12) 1,000 mcg Sublingual1,000mcg Tablet Dissolve Three Tablet On The Tongue Once Daily 90tabs Alice Camara MD 01/13/2022 [facility] Vitamin E8035ifz (62549 Ut) Capsules 1 by mouth every day 90caps Alice Camara MD 05/07/2021 Potassium Chloride FS71Muw Tablets ER Take One Tablet By Mouth Once Daily 90tabs Cam Hendricks MD 04/13/2021 Aspirin Adult Low Ypfm64jy Tablets DR 1 by mouth QHS 90tabs Cam Hendricks MD 05/07 Centrum AdultsTablets 1 by mouth QHS 90tabs Armand brenden Hendricks MD 05/17/2020 Escitalopram Jjjjwjl8jj Tablets take one-half tablet by mouth at bedtime 90tabs F41.1 Alice Camara MD 06/14/[address] Take One Tablet By Mouth Once Daily 30tabs Alice Camara MD 05/13/2019 Donepezil HCL5mg Tablets Take One Tablet By Mouth Once Daily 28tabs Alice Camara MD 02/25/2019 Atorvastatin Udjyymk63ux Tablets take 1 tablet by mouth once daily at bedtime 90tabs E78.5 Alice Camara MD 12/06/2017 Zoaxhqlmbj75sx Tablets take 1 tablet by mouth once daily in the morning 90tabs I10 Alice Camara MD 04/12/2017 [facility] 1units M54.5 Edwardo Hua DO 03/12/2017 Dbftlgzklf19ev Tablets Take 1 Tablet By Mouth Once Daily AT Bedtime 90tabs Alice Camara MD Medications Administered in Office Medication SIG Qnty Indications Ordering Provider Date Injection Kenalog 10 MG NDC [id number] JENY Davenport 03/06/2019 Injection Kenalog 10 MG NDC 20610776626Ygsycnwvs JENY Davenport 05/09/2018 Injection Dexamethasone Sodium Phosphate, 1 MGInjection JENY Shay 05/09/2018 Injection Kenalog 10 MG NDC [id number] [place] Brandon PA-C 05/04/2017 Injection Dexamethasone Sodium Phosphate, 1 MGInjection [place] Brandon PA-C Immunizations CPT Code Status Date Vaccine Lot # 12994 Given 08/22/2022 Moderna Sars-Co v-2 (Covid-19) Vaccine, BiValent Booster 12y+ [id number] 62144 Given 02/17/2022 Influenza Virus Vaccine, Quadrivalent (Cciiv4), Derived From Cell [id number] 74327 Given 05/26/2021 Shingrix H2PE2 74638 Given 04/11/2021 Moderna Covid-19 Vaccine 50mcg Booster [id number] 43729 Given 04/11/2021 Influenza Virus Vaccine, Quadrivalent (Cciiv4), Derived From 8 Given 09/10/2020 Moderna Sars-Co v-2 (Covid-19) vaccine, 100 mcg/ 0.5 mL 12Y+ [id number] 06882 Given 08/13/2020 Moderna Sars-Co v-2 (Covid-19) vaccine, 100 mcg/ 0.5 mL 12Y+ [id number] 88153 Given 03/27/2019 Pneumococcal Vaccine/Pneu movax 23 [id number] 35894 Given 03/06/2019 Influenza Virus Vaccine, Quadrivalent (Cciiv4), Derived From 7 Given 02/14/2018 Influenza Vacci ne Quadrivalent Preser/Antibiotic Free Im Use [id number] 12686 Given 11/08/2017 Tdap (Tetanus, diphtheria & acel. pertussis) Adacel or Boostrix [id number] 04082 Given 11/08/2017 Pneumococcal Conjugate-Pr evnar 13 24294 Given 11/08/2017 Pneumococcal Conjugate-Pr evnar 13 [id number] 93774 Given 11/08/2017 Tdap (Tetanus, diphtheria & acel. pertussis) Adacel or Boostrix 47231 Given 02/17/2017 Influenza Vacci ne-Administered at another facility U-FLU Given 02/16/2014 Influenza,Unspecified 33091 Refused 07/24/2018 Shingrix 71343 Refused 07/12/2017 Zostavax Vaccine Vital Signs Date Vital Result Comment 12/21/2022 10:58am BP Systolic 120 mmHg BP Diastolic 62 mmHg Body Temperature 97.7 F Heart Rate 89 /min Respiratory Rate 16 /min Weight 101.12 lb Weight 45.870 kg Height 57 inches 4'9" BMI (Body Mass Index) 21.9 kg/m2 O2 % BldC Oximetry 99 % [place] Body Weight 100 lb 08/28/2022 3:48pm BP Systolic 124 mmHg BP Diastolic 82 mmHg Body Temperature 97.6 F Heart Rate 77 /min Respiratory Rate 14 /min Weight 102.00 lb Weight 46.267 kg Height 57 inches 4'9" BMI (Body Mass Index) 22.1 kg/m2 O2 % BldC Oximetry 98 % [place] Body Weight 100 lb Results Test Acquired Date Facility Test Result H/L Range N ote CBC W/Diff 12/21/2022 [facility]. [address] [place] [address] [phone] WBC COMMENT 10^3/M3 3.1-9.2 RBC COMMENT 10^6/M3 3.70-5.50 HGB COMMENT GR/DL 11.5-16.1 HCT COMMENT % 34.5-47.8 MCV COMMENT CUMICR 82.6-95.8 MCH COMMENT PICOGR 27.9-32.9 MCHC COMMENT % 32.6-35.4 RDW COMMENT % 11.4-14.6 PLT COMMENT 10^3/M3 140-350 MPV COMMENT CUMICR 7.0-10.6 %Neut COMMENT % 40.0-75.0 %Lymph COMMENT % 17.0-45.0 %[place] COMMENT % 1.0-11.0 %Eos COMMENT % 0.0-6.0 %Baso COMMENT % 0.0-2.0 #Neut COMMENT 10^3/M3 1.5-8.0 #Lymph COMMENT 10^3/M3 0.8-3.2 #[place] COMMENT 10^3/M3 0.0-0.8 #Eos COMMENT 10^3/m3 0.0-0.4 #Baso COMMENT 10^3/m3 0.0-0.2 Comp. Met 12/21/2022 [facility]. [address] [place] [address] [phone] Glucose COMMENT mg/dL 70-110 BUN COMMENT mg/dL [...] 2.0-3.4 GFR COMMENT Low >60 Lipid 12/21/2022 [facility]. [address] [place], [place] [address] [phone] Cholesterol COMMENT mg/dL 0-200 1 Triglyceride COMMENT mg/dL 0-150 HDLD COMMENT mg/dL See Comment Measured LDL COMMENT mg/dL 0-130 Calc VLDL COMMENT mg/dL See Comment Chol/HDL COMMENT RATIO See Comment Non-HDL COMMENT mg/dL See Comment TSH With Reflex 12/21/2022 [facility]. [address] [place] [address] [phone] TSH (Reflex) COMMENT uIU/mL 0.50-6.00 Laboratory test finding 12/21/2022 [facility]. [address] [place] [address] [phone] Vitd-25Oh COMMENT ng/mL 30-100 1 ORDER TRANSMITTED TO LABORATORY. NO SPECIMENS RECEIVED FOR TESTING. 8.18.23 MOHSEN Procedures Date Code Description Status 12/21/2022 91601 Venipuncture Routine Complet ed 12/21/2022 3078F PVRP [...] Systolic BP <130 mmHg C ompleted 01/03/2019 67849893 Mammogram Completed 08/13/2014 60884282 Colonoscopy Completed 02/28/2010 67858131 Colonoscopy Completed 02/02/2009 428144798 Bone Mineral Density Test Co mpleted Medical [...] without esophagitis Assessments Date Code Description Provider 12/21/2022 K59.00 Constipation, unspecified Dominique Camara MD [...] 1:30 pm - Alice Camara MD at [place] 12/21/2022 - Alice Camara MD* K59.00 Constipation, unspecified* Comments:* Drink plenty of fluid follow high fiber diet * Follow up:* f/up in 3 months * E78.5 Hyperlipidemia, unspecified * I10 Essential (primary) hypertension * M79.604 Pain in right leg Functional Status Description No Information Available Mental Status Description No Information Available Referrals Description No Information Available
--- OUTSIDE RECORDS SUMMARY | 2023-04-24 15:33 | External Medical Summary | Continuity of Care Document ---
Author Name ALICE CAMARA MD Address [address] [place] [address] Phone [phone] [facility] Address [address] [place] [address] Phone [phone] Problems Active Problems Provider Date Essential hypertension [...] SIG Qnty Indications Order ing Provider Date Vqfwsoq70VM/Scoop Powder take one scoop as directed daily as needed 119gm K59.00 Alice Camara MD 08/18/2022 Cyanocobalamin (Vit B-12) 1,000 mcg Sublingual1,000mcg Tablet Dissolve Three Tablet On The Tongue Once Daily 90tabs Alice Camara MD 01/13/2022 [facility] Vitamin Q0732uas (00900 Ut) Capsules 1 by mouth every day 90caps Alice Camara MD 05/07/2021 Potassium Chloride AV56Qly Tablets ER Take One Tablet By Mouth Once Daily 90tabs Cam Hendricks MD 04/13/2021 Aspirin Adult Low Cyru46ua Tablets DR 1 by mouth QHS 90tabs Cam Hendricks MD 05/07 Centrum AdultsTablets 1 by mouth QHS 90tabs Armand brenden Hendricks MD 05/17/2020 Escitalopram Hqvgjaa8va Tablets take one-half tablet by mouth at bedtime 90tabs F41.1 Alice Camara MD 06/14/[address] Take One Tablet By Mouth Once Daily 30tabs Alice Camara MD 05/13/2019 Donepezil HCL5mg Tablets Take One Tablet By Mouth Once Daily 28tabs Alice Camara MD 02/25/2019 Atorvastatin Rwvlgfv47qj Tablets take 1 tablet by mouth once daily at bedtime 90tabs E78.5 Alice Camara MD 12/06/2017 Dbwfcjryzd06pn Tablets take 1 tablet by mouth once daily in the morning 90tabs I10 Alice Camara MD 04/12/2017 [facility] 1units M54.5 Edwardo Hua DO 03/12/2017 Xghhcsjyvy11uf Tablets Take 1 Tablet By Mouth Once Daily AT Bedtime 90tabs Alice Camara MD Medications Administered in Office Medication SIG Qnty Indications Ordering Provider Date Injection Kenalog 10 MG NDC [id number] JENY Davenport 03/06/2019 Injection Kenalog 10 MG NDC 13904518193Sbkqsfmum JENY Davenport 05/09/2018 Injection Dexamethasone Sodium Phosphate, 1 MGInjection JENY Shay 05/09/2018 Injection Kenalog 10 MG NDC 46665154024Mfyqavrja [place] Brandon PA-C 05/04/2017 Injection Dexamethasone Sodium Phosphate, 1 MGInjection [place] Brandon PA-C Immunizations CPT Code Status Date Vaccine Lot # 18909 Given 08/22/2022 Moderna Sars-Co v-2 (Covid-19) Vaccine, BiValent Booster 12y+ [id number] 65091 Given 02/17/2022 Influenza Virus Vaccine, Quadrivalent (Cciiv4), Derived From Cell [id number] 52380 Given 05/26/2021 Shingrix H2PE2 63184 Given 04/11/2021 Moderna Covid-19 Vaccine 50mcg Booster [id number] 59513 Given 04/11/2021 Influenza Virus Vaccine, Quadrivalent (Cciiv4), Derived From 0 Given 09/10/2020 Moderna Sars-Co v-2 (Covid-19) vaccine, 100 mcg/ 0.5 mL 12Y+ [id number] 51615 Given 08/13/2020 Moderna Sars-Co v-2 (Covid-19) vaccine, 100 mcg/ 0.5 mL 12Y+ [id number] 47691 Given 03/27/2019 Pneumococcal Vaccine/Pneu movax 23 [id number] 57242 Given 03/06/2019 Influenza Virus Vaccine, Quadrivalent (Cciiv4), Derived From 3 Given 02/14/2018 Influenza Vacci ne Quadrivalent Preser/Antibiotic Free Im Use [id number] 82349 Given 11/08/2017 Tdap (Tetanus, diphtheria & acel. pertussis) Adacel or Boostrix [id number] 60850 Given 11/08/2017 Pneumococcal Conjugate-Pr evnar 13 30115 Given 11/08/2017 Pneumococcal Conjugate-Pr evnar 13 [id number] 88288 Given 11/08/2017 Tdap (Tetanus, diphtheria & acel. pertussis) Adacel or Boostrix 89298 Given 02/17/2017 Influenza Vacci ne-Administered at another facility U-FLU Given 02/16/2014 Influenza,Unspecified 29313 Refused 07/24/2018 Shingrix 89500 Refused 07/12/2017 Zostavax Vaccine Vital Signs Date Vital Result Comment 12/21/2022 10:58am BP Systolic 120 mmHg BP Diastolic 62 mmHg Body Temperature 97.7 F Heart Rate 89 /min Respiratory Rate 16 /min Weight 101.12 lb Weight 45.870 kg Height 57 inches 4'9" BMI (Body Mass Index) 21.9 kg/m2 O2 % BldC Oximetry 99 % [place] Body Weight 100 lb 08/28/2022 3:48pm BP Systolic 124 mmHg BP Diastolic 82 mmHg Body Temperature 97.6 F Heart Rate 77 /min Respiratory Rate 14 /min Weight 102.00 lb Weight 46.267 kg Height 57 inches 4'9" BMI (Body Mass Index) 22.1 kg/m2 O2 % BldC Oximetry 98 % [place] Body Weight 100 lb Results Test Acquired Date Facility Test Result H/L Range N ote Laboratory test finding 12/21/2022 [facility]. [address] [place], [place] [address] [phone] Vitamin D 25 (Oh) <pending> Procedures Date Code Description Status 12/21/2022 77836 Venipuncture Routine Complet ed 08/22/2022 3288F Fall Risk Assessment Documen jessica Completed 08/22/2022 1100F PT Screened Futu re Fall Risk >/=2 Falls In Past Yr/1 W/Injury Completed 08/22/2022 0064A Moderna Covid-19 Vaccine 50mcg Administration - Booster Completed 08/18/2022 3079F PVRP Diastolic BP 80-89 MMHG Completed 08/18/2022 3074F PVRP Systolic BP <130 mmHg C ompleted 01/03/2019 33480699 Mammogram Completed 08/13/2014 87929327 Colonoscopy Completed 02/28/2010 88439562 Colonoscopy Completed 02/02/2009 251118492 Bone Mineral Density Test Co mpleted Medical Devices Description No Information Available Encounters Type Date Location Provider Dx Diagnosis Office Visit 08/28/2022 4:45p Melisa Camara MD R19.7 Diarrhea, uns pecified Office Visit 08/22/2022 11:30a Melisa Camara MD Z00.01 Encounter for general adult medical [...] unspecified Dominique Camara MD 12/21/2022 E78.5 Hyperlipidemia, waleified Alice Camara MD 12/21/2022 I10 Essential (primary) hyperten srinivas Camara MD 12/21/2022 M79.604 Pain in right [...] Alice Camara MD 08/18/2022 I10 Essential (primary) hyperten srinivas Camara MD 08/18/2022 K21.9 Gastro-esophagea l reflux [...] 1:30 pm - Alice Camara MD at [place] 12/21/2022 - Alice Camara MD* K59.00 Constipation, unspecified* Comments:* Drink plenty of fluid follow high fiber diet * Follow up:* f/up in 3 months * E78.5 Hyperlipidemia, unspecified * I10 Essential (primary) hypertension * M79.604 Pain in right leg Functional Status Description No Information Available Mental Status Description No Information Available Referrals Description No Information Available
--- OUTSIDE RECORDS SUMMARY | 2023-04-24 15:33 | External Medical Summary | Continuity of Care Document ---
Author Name ALICE CAMARA MD Address [address] [place] [address] Phone [phone] [facility] [place] [place] Address [address] [place] [address] Phone [phone] Problems Active Problems Provider Date Essential hypertension [...] SIG Qnty Indications Order ing Provider Date Tsskmpv93XS/Scoop Powder take one scoop as directed daily as needed 119gm K59.00 Alice Camara MD 08/18/2022 Cyanocobalamin (Vit B-12) 1,000 mcg Sublingual1,000mcg Tablet Dissolve Three Tablet On The Tongue Once Daily 90tabs Alice Camara MD 01/13/2022 [facility] Vitamin Y6080hry (92786 Ut) Capsules 1 by mouth every day 90caps Alice Camara MD 05/07/2021 Potassium Chloride QE52Ipt Tablets ER Take One Tablet By Mouth Once Daily 90tabs Cam Hendricks MD 04/13/2021 Aspirin Adult Low Gqxr05uu Tablets DR 1 by mouth QHS 90tabs Cam Hendricks MD 05/07 Centrum AdultsTablets 1 by mouth QHS 90tabs Armand brenden Hendricks MD 05/17/2020 Escitalopram Jjijvai1nl Tablets take one-half tablet by mouth at bedtime 90tabs F41.1 Alice Camara MD 06/14/[address] Take One Tablet By Mouth Once Daily 30tabs Alice Camara MD 05/13/2019 Donepezil HCL5mg Tablets Take One Tablet By Mouth Once Daily 28tabs Alice Camara MD 02/25/2019 Atorvastatin Oikpvog62rn Tablets take 1 tablet by mouth once daily at bedtime 90tabs E78.5 Alice Camara MD 12/06/2017 Phqbbappfe93io Tablets take 1 tablet by mouth once daily in the morning 90tabs I10 Alice Camara MD 04/12/2017 [facility] [place] [facility] 1units M54.5 Edwardo Hua DO 03/12/2017 Ofaafscocl34oa Tablets Take 1 Tablet By Mouth Once Daily AT Bedtime 90tabs Alice Camara MD Medications Administered in Office Medication SIG Qnty Indications Ordering Provider Date Injection Kenalog 10 MG NDC [id number] JENY Davenport 03/06/2019 Injection Kenalog 10 MG NDC [id number] JENY Davenport 05/09/2018 Injection Dexamethasone Sodium Phosphate, 1 MGInjection JENY Shay 05/09/2018 Injection Kenalog 10 MG NDC [id number] [place] Brandon PA-C 05/04/2017 Injection Dexamethasone Sodium Phosphate, 1 MGInjection [place] Brandon PA-C Immunizations CPT Code Status Date Vaccine Lot # 59465 Given 08/22/2022 Moderna Sars-Co v-2 (Covid-19) Vaccine, BiValent Booster 12y+ [id number] 49573 Given 02/17/2022 Influenza Virus Vaccine, Quadrivalent (Cciiv4), Derived From [id number] 07534 Given 05/26/2021 Shingrix [id number] 81910 Given 04/11/2021 Moderna Covid-19 Vaccine 50mcg Booster [id number] 15335 Given 04/11/2021 Influenza Virus Vaccine, Quadrivalent (Cciiv4), Derived From 4 Given 09/10/2020 Moderna Sars-Co v-2 (Covid-19) vaccine, 100 mcg/ 0.5 mL 12Y+ [id number] 34192 Given 08/13/2020 Moderna Sars-Co v-2 (Covid-19) vaccine, 100 mcg/ 0.5 mL 12Y+ [id number] 87443 Given 03/27/2019 Pneumococcal Vaccine/Pneu movax 23 [id number] 30142 Given 03/06/2019 Influenza Virus Vaccine, Quadrivalent (Cciiv4), Derived From 1 Given 02/14/2018 Influenza Vacci ne Quadrivalent Preser/Antibiotic Free Im Use [id number] 36149 Given 11/08/2017 Tdap (Tetanus, diphtheria & acel. pertussis) Adacel or Boostrix [id number] 25149 Given 11/08/2017 Pneumococcal Conjugate-Pr evnar 13 96534 Given 11/08/2017 Pneumococcal Conjugate-Pr evnar 13 [id number] 69542 Given 11/08/2017 Tdap (Tetanus, diphtheria & acel. pertussis) Adacel or Boostrix 78918 Given 02/17/2017 Influenza Vacci ne-Administered at another facility U-FLU Given 02/16/2014 Influenza,Unspecified 08611 Refused 07/24/2018 Shingrix 49874 Refused 07/12/2017 Zostavax Vaccine Vital Signs Date Vital Result Comment 12/21/2022 10:58am BP Systolic 120 mmHg BP Diastolic 62 mmHg Body Temperature 97.7 F Heart Rate 89 /min Respiratory Rate 16 /min Weight 101.12 lb Weight 45.870 kg Height 57 inches 4'9" BMI (Body Mass Index) 21.9 kg/m2 O2 % BldC Oximetry 99 % [place] Body Weight 100 lb 08/28/2022 3:48pm BP Systolic 124 mmHg BP Diastolic 82 mmHg Body Temperature 97.6 F Heart Rate 77 /min Respiratory Rate 14 /min Weight 102.00 lb Weight 46.267 kg Height 57 inches 4'9" BMI (Body Mass Index) 22.1 kg/m2 O2 % BldC Oximetry 98 % [place] Body Weight 100 lb Results Test Acquired Date Facility Test Result H/L Range N ote CBC W/Diff 12/21/2022 [facility]. [address] [place] [address] [phone] WBC COMMENT 10^3/M3 3.1-9.2 RBC COMMENT 10^6/M3 3.70-5.50 HGB COMMENT GR/DL 11.5-16.1 HCT COMMENT % 34.5-47.8 MCV COMMENT CUMICR 82.6-95.8 MCH COMMENT PICOGR 27.9-32.9 MCHC COMMENT % 32.6-35.4 RDW COMMENT % 11.4-14.6 PLT COMMENT 10^3/M3 140-350 MPV COMMENT CUMICR 7.0-10.6 %Neut COMMENT % 40.0-75.0 %Lymph COMMENT % 17.0-45.0 %[place] COMMENT % 1.0-11.0 %Eos COMMENT % 0.0-6.0 %Baso COMMENT % 0.0-2.0 #Neut COMMENT 10^3/M3 1.5-8.0 #Lymph COMMENT 10^3/M3 0.8-3.2 #[place] COMMENT 10^3/M3 0.0-0.8 #Eos COMMENT 10^3/m3 0.0-0.4 #Baso COMMENT 10^3/m3 0.0-0.2 Comp. Met 12/21/2022 [facility]. [address] [place] [address] [phone] Glucose COMMENT mg/dL 70-110 BUN COMMENT mg/dL [...] 2.0-3.4 GFR COMMENT Low >60 Lipid 12/21/2022 [facility]. [address] [place], [place] [address] [phone] Cholesterol COMMENT mg/dL 0-200 1 Triglyceride COMMENT mg/dL 0-150 HDLD COMMENT mg/dL See Comment Measured LDL COMMENT mg/dL 0-130 Calc VLDL COMMENT mg/dL See Comment Chol/HDL COMMENT RATIO See Comment Non-HDL COMMENT mg/dL See Comment TSH With Reflex 12/21/2022 [facility]. [address] [place] [address] [phone] TSH (Reflex) COMMENT uIU/mL 0.50-6.00 Laboratory test finding 12/21/2022 [facility]. [address] [place] [address] [phone] Vitd-25Oh COMMENT ng/mL 30-100 1 ORDER TRANSMITTED TO LABORATORY. NO SPECIMENS RECEIVED FOR TESTING. 8.18.23 MOHSEN Procedures Date Code Description Status 12/21/2022 95545 Venipuncture Routine Complet ed 12/21/2022 3078F PVRP [...] Systolic BP <130 mmHg C ompleted 01/03/2019 [id number] Mammogram Completed 08/13/2014 [id number] Colonoscopy Completed 02/28/2010 21431315 Colonoscopy Completed 02/02/2009 [id number] Bone Mineral Density Test Co mpleted Medical [...] 1:30 pm - Alice Camara MD at [place] 12/21/2022 - Alice Camara MD* K59.00 Constipation, unspecified* Comments:* Drink plenty of fluid follow high fiber diet * Follow up:* f/up in 3 months * E78.5 Hyperlipidemia, unspecified * I10 Essential (primary) hypertension * M79.604 Pain in right leg Functional Status Description No Information Available Mental Status Description No Information Available Referrals Description No Information Available
--- OUTSIDE RECORDS SUMMARY | 2023-04-24 15:33 | External Medical Summary | Continuity of Care Document ---
Author Name [facility] [place] Address [address] [place] [address] Phone [phone] Organization [facility], Address [address] [place] [address] Phone [phone] Problems Active Problems Provider Date Essential hypertension [...] SIG Qnty Indications Order ing Provider Date Rctqdsp58HM/Scoop Powder take one scoop as directed daily as needed 119gm K59.00 Alice Camara MD 08/18/2022 Cyanocobalamin (Vit B-12) 1,000 mcg Sublingual1,000mcg Tablet Dissolve Three Tablet On The Tongue Once Daily 90tabs Alice Camara MD 01/13/2022 [facility] Vitamin K0151cut (81132 Ut) Capsules 1 by mouth every day 90caps Alice Camara MD 05/07/2021 Potassium Chloride NV75Yso Tablets ER Take One Tablet By Mouth Once Daily 90tabs Cam Hendricks MD 04/13/2021 Aspirin Adult Low Urwa25qv Tablets DR 1 by mouth QHS 90tabs Cam Hendricks MD 05/07 Centrum AdultsTablets 1 by mouth QHS 90tabs Armand brenden Hendricks MD 05/17/2020 Escitalopram Xrpvshe7ls Tablets take one-half tablet by mouth at bedtime 90tabs F41.1 Alice Camara MD 06/14/[address] Take One Tablet By Mouth Once Daily 30tabs Alice Camara MD 05/13/2019 Donepezil HCL5mg Tablets Take One Tablet By Mouth Once Daily 28tabs Alice Camara MD 02/25/2019 Atorvastatin Ajseqsy31rv Tablets take 1 tablet by mouth once daily at bedtime 90tabs E78.5 Alice Camara MD 12/06/2017 Wkzefwibxd64gb Tablets take 1 tablet by mouth once daily in the morning 90tabs I10 Alice Camara MD 04/12/2017 [facility] [place] [facility] 1units M54.5 Edwardo Hua DO 03/12/2017 Sitiqvzxrr80ba Tablets Take 1 Tablet By Mouth Once Daily AT Bedtime 90tabs Alice Camara MD Medications Administered in Office Medication SIG Qnty Indications Ordering Provider Date Injection Kenalog 10 MG NDC [id number] JENY Davenport 03/06/2019 Injection Kenalog 10 MG NDC 27250126002Nfpfzeboo JENY Davenport 05/09/2018 Injection Dexamethasone Sodium Phosphate, 1 MGInjection JENY Shay 05/09/2018 Injection Kenalog 10 MG NDC [id number] [place] Brandon PA-C 05/04/2017 Injection Dexamethasone Sodium Phosphate, 1 MGInjection [place] PA-C Immunizations CPT Code Status Date Vaccine Lot # 49263 Given 08/22/2022 Moderna Sars-Co v-2 (Covid-19) Vaccine, BiValent Booster 12y+ [id number] 50943 Given 02/17/2022 Influenza Virus Vaccine, Quadrivalent (Cciiv4), Derived From Cell [id number] 93132 Given 05/26/2021 Shingrix [id number] 57765 Given 04/11/2021 Moderna Covid-19 Vaccine 50mcg Booster [id number] 40408 Given 04/11/2021 Influenza Virus Vaccine, Quadrivalent (Cciiv4), Derived From 1 Given 09/10/2020 Moderna Sars-Co v-2 (Covid-19) vaccine, 100 mcg/ 0.5 mL 12Y+ [id number] 53595 Given 08/13/2020 Moderna Sars-Co v-2 (Covid-19) vaccine, 100 mcg/ 0.5 mL 12Y+ [id number] 82183 Given 03/27/2019 Pneumococcal Vaccine/Pneu movax 23 [id number] 00111 Given 03/06/2019 Influenza Virus Vaccine, Quadrivalent (Cciiv4), Derived From 5 Given 02/14/2018 Influenza Vacci ne Quadrivalent Preser/Antibiotic Free Im Use [id number] 64938 Given 11/08/2017 Tdap (Tetanus, diphtheria & acel. pertussis) Adacel or Boostrix [id number] 29515 Given 11/08/2017 Pneumococcal Conjugate-Pr evnar 13 17405 Given 11/08/2017 Pneumococcal Conjugate-Pr evnar 13 [id number] 51075 Given 11/08/2017 Tdap (Tetanus, diphtheria & acel. pertussis) Adacel or Boostrix 24312 Given 02/17/2017 Influenza Vacci ne-Administered at another facility U-FLU Given 02/16/2014 Influenza,Unspecified 11719 Refused 07/24/2018 Shingrix 64898 Refused 07/12/2017 Zostavax Vaccine Vital Signs Date Vital Result Comment 12/21/2022 10:58am BP Systolic 120 mmHg BP Diastolic 62 mmHg Body Temperature 97.7 F Heart Rate 89 /min Respiratory Rate 16 /min Weight 101.12 lb Weight 45.870 kg Height 57 inches 4'9" BMI (Body Mass Index) 21.9 kg/m2 O2 % BldC Oximetry 99 % [place] Body Weight 100 lb 08/28/2022 3:48pm BP Systolic 124 mmHg BP Diastolic 82 mmHg Body Temperature 97.6 F Heart Rate 77 /min Respiratory Rate 14 /min Weight 102.00 lb Weight 46.267 kg Height 57 inches 4'9" BMI (Body Mass Index) 22.1 kg/m2 O2 % BldC Oximetry 98 % [place] Body Weight 100 lb Results Test Acquired Date Facility Test Result H/L Range N ote Laboratory test finding 12/26/2022 [facility]. [address] [place], [place] [address] [phone] Vitd-25Oh <pending> CBC W/Diff 12/21/2022 [facility]. [address] [place], [place] [address] [phone] WBC COMMENT 10^3/M3 3.1-9.2 RBC COMMENT 10^6/M3 3.70-5.50 HGB COMMENT GR/DL 11.5-16.1 HCT COMMENT % 34.5-47.8 MCV COMMENT CUMICR 82.6-95.8 MCH COMMENT PICOGR 27.9-32.9 MCHC COMMENT % 32.6-35.4 RDW COMMENT % 11.4-14.6 PLT COMMENT 10^3/M3 140-350 MPV COMMENT CUMICR 7.0-10.6 %Neut COMMENT % 40.0-75.0 %Lymph COMMENT % 17.0-45.0 %[place] COMMENT % 1.0-11.0 %Eos COMMENT % 0.0-6.0 %Baso COMMENT % 0.0-2.0 #Neut COMMENT 10^3/M3 1.5-8.0 #Lymph COMMENT 10^3/M3 0.8-3.2 #[place] COMMENT 10^3/M3 0.0-0.8 #Eos COMMENT 10^3/m3 0.0-0.4 #Baso COMMENT 10^3/m3 0.0-0.2 Comp. Met 12/21/2022 [facility]. [address] [place] [address] [phone] Glucose COMMENT mg/dL 70-110 BUN COMMENT mg/dL [...] 2.0-3.4 GFR COMMENT Low >60 Lipid 12/21/2022 [facility]. [address] [place], [place] [address] [phone] Cholesterol COMMENT mg/dL 0-200 1 Triglyceride COMMENT mg/dL 0-150 HDLD COMMENT mg/dL See Comment Measured LDL COMMENT mg/dL 0-130 Calc VLDL COMMENT mg/dL See Comment Chol/HDL COMMENT RATIO See Comment Non-HDL COMMENT mg/dL See Comment TSH With Reflex 12/21/2022 [facility]. [address] [place] [address] [phone] TSH (Reflex) COMMENT uIU/mL 0.50-6.00 Laboratory test finding 12/21/2022 [facility]. [address] [place] [address] [phone] Vitd-25Oh COMMENT ng/mL 30-100 1 ORDER TRANSMITTED TO LABORATORY. NO SPECIMENS RECEIVED FOR TESTING. 8.18.23 MOHSEN Procedures Date Code Description Status 12/26/2022 59232 Venipuncture Routine Complet ed 12/21/2022 55905 Venipuncture Routine Complet ed 12/21/2022 3078F PVRP [...] Systolic BP <130 mmHg C ompleted 01/03/2019 43896551 Mammogram Completed 08/13/2014 22508121 Colonoscopy Completed 02/28/2010 04798201 Colonoscopy Completed 02/02/2009 606696322 Bone Mineral Density Test Co mpleted Medical [...] 1:30 pm - Alice Camara MD at [place] 12/21/2022 - Alice Camara MD* K59.00 Constipation, unspecified* Comments:* Drink plenty of fluid follow high fiber diet * Follow up:* f/up in 3 months * E78.5 Hyperlipidemia, unspecified * I10 Essential (primary) hypertension * M79.604 Pain in right leg Functional Status Description No Information Available Mental Status Description No Information Available Referrals Description No Information Available
--- OUTSIDE RECORDS SUMMARY | 2023-04-24 15:33 | External Medical Summary | Continuity of Care Document ---
Author Name ALICE CAMARA MD Address [address] [place] [address] Phone [phone] [facility] Address [address] [place] [address] Phone [phone] Problems Active Problems Provider Date Essential hypertension [...] SIG Qnty Indications Order ing Provider Date Rqrzneh21VV/Scoop Powder take one scoop as directed daily as needed 119gm K59.00 Alice Camara MD 08/18/2022 Cyanocobalamin (Vit B-12) 1,000 mcg Sublingual1,000mcg Tablet Dissolve Three Tablet On The Tongue Once Daily 90tabs Alice Camara MD 01/13/2022 [facility] Vitamin C0816yii (86003 Ut) Capsules 1 by mouth every day 90caps Alice Camara MD 05/07/2021 Potassium Chloride EJ45Cic Tablets ER Take One Tablet By Mouth Once Daily 90tabs Cam Hendricks MD 04/13/2021 Aspirin Adult Low Zeqo81dd Tablets DR 1 by mouth QHS 90tabs Cam Hendricks MD 05/07 Centrum AdultsTablets 1 by mouth QHS 90tabs Armand brenden Hendricks MD 05/17/2020 Escitalopram Rcgcjux8gf Tablets take one-half tablet by mouth at bedtime 90tabs F41.1 Alice Camara MD 06/14/[address] Take One Tablet By Mouth Once Daily 30tabs Alice Camara MD 05/13/2019 Donepezil HCL5mg Tablets Take One Tablet By Mouth Once Daily 28tabs Alice Camara MD 02/25/2019 Atorvastatin Yhcuejl48qq Tablets take 1 tablet by mouth once daily at bedtime 90tabs E78.5 Alice Camara MD 12/06/2017 Vulwklmfsy03zp Tablets take 1 tablet by mouth once daily in the morning 90tabs I10 Alice Camara MD 04/12/2017 [facility] [place] 1units M54.5 Edwardo Hua DO 03/12/2017 Qimszmtbrs53ie Tablets Take 1 Tablet By Mouth Once Daily AT Bedtime 90tabs Alice Camara MD Medications Administered in Office Medication SIG Qnty Indications Ordering Provider Date Injection Kenalog 10 MG NDC [id number] JENY Davenport 03/06/2019 Injection Kenalog 10 MG NDC 46434727919Mnhxyqxni JENY Davenport 05/09/2018 Injection Dexamethasone Sodium Phosphate, 1 MGInjection JENY Shay 05/09/2018 Injection Kenalog 10 MG NDC 36700288981Rkhyiwbbi [place] Brandon PA-C 05/04/2017 Injection Dexamethasone Sodium Phosphate, 1 MGInjection [place] Brandon PA-C Immunizations CPT Code Status Date Vaccine Lot # 53935 Given 08/22/2022 Moderna Sars-Co v-2 (Covid-19) Vaccine, BiValent Booster 12y+ [id number] 34600 Given 02/17/2022 Influenza Virus Vaccine, Quadrivalent (Cciiv4), Derived From Cell [id number] 52119 Given 05/26/2021 Shingrix H2PE2 31582 Given 04/11/2021 Moderna Covid-19 Vaccine 50mcg Booster [id number] 22761 Given 04/11/2021 Influenza Virus Vaccine, Quadrivalent (Cciiv4), Derived From 7 Given 09/10/2020 Moderna Sars-Co v-2 (Covid-19) vaccine, 100 mcg/ 0.5 mL 12Y+ [id number] 25685 Given 08/13/2020 Moderna Sars-Co v-2 (Covid-19) vaccine, 100 mcg/ 0.5 mL 12Y+ [id number] 41275 Given 03/27/2019 Pneumococcal Vaccine/Pneu movax 23 [id number] 85354 Given 03/06/2019 Influenza Virus Vaccine, Quadrivalent (Cciiv4), Derived From 7 Given 02/14/2018 Influenza Vacci ne Quadrivalent Preser/Antibiotic Free Im Use [id number] 37877 Given 11/08/2017 Tdap (Tetanus, diphtheria & acel. pertussis) Adacel or Boostrix [id number] 74439 Given 11/08/2017 Pneumococcal Conjugate-Pr evnar 13 88848 Given 11/08/2017 Pneumococcal Conjugate-Pr evnar 13 [id number] 54255 Given 11/08/2017 Tdap (Tetanus, diphtheria & acel. pertussis) Adacel or Boostrix 13396 Given 02/17/2017 Influenza Vacci ne-Administered at another facility U-FLU Given 02/16/2014 Influenza,Unspecified 46443 Refused 07/24/2018 Shingrix 14062 Refused 07/12/2017 Zostavax Vaccine Vital Signs Date Vital Result Comment 12/21/2022 10:58am BP Systolic 120 mmHg BP Diastolic 62 mmHg Body Temperature 97.7 F Heart Rate 89 /min Respiratory Rate 16 /min Weight 101.12 lb Weight 45.870 kg Height 57 inches 4'9" BMI (Body Mass Index) 21.9 kg/m2 O2 % BldC Oximetry 99 % [place] Body Weight 100 lb 08/28/2022 3:48pm BP Systolic 124 mmHg BP Diastolic 82 mmHg Body Temperature 97.6 F Heart Rate 77 /min Respiratory Rate 14 /min Weight 102.00 lb Weight 46.267 kg Height 57 inches 4'9" BMI (Body Mass Index) 22.1 kg/m2 O2 % BldC Oximetry 98 % [place] Body Weight 100 lb Results Test Acquired Date Facility Test Result H/L Range N ote Laboratory test finding 12/21/2022 [facility]. [address] [place], [place] [address] [phone] Vitamin D 25 (Oh) <pending> Procedures Date Code Description Status 12/21/2022 84467 Venipuncture Routine Complet ed 08/22/2022 3288F Fall Risk Assessment Documen [email or web address] Completed 08/22/2022 1100F PT Screened Futu re Fall Risk >/=2 Falls In Past Yr/1 W/Injury Completed 08/22/2022 0064A Moderna Covid-19 Vaccine 50mcg Administration - Booster Completed 08/18/2022 3079F PVRP Diastolic BP 80-89 MMHG Completed 08/18/2022 3074F PVRP Systolic BP <130 mmHg C ompleted 01/03/2019 97729616 Mammogram Completed 08/13/2014 82992257 Colonoscopy Completed 02/28/2010 10705498 Colonoscopy Completed 02/02/2009 248431929 Bone Mineral Density Test Co mpleted Medical [...] 1:30 pm - Alice Camara MD at [place] 12/21/2022 - Alice Camara MD* K59.00 Constipation, unspecified* Comments:* Drink plenty of fluid follow high fiber diet * Follow up:* f/up in 3 months * E78.5 Hyperlipidemia, unspecified * I10 Essential (primary) hypertension * M79.604 Pain in right leg Functional Status Description No Information Available Mental Status Description No Information Available Referrals Description No Information Available
--- OUTSIDE RECORDS SUMMARY | 2023-04-24 15:33 | External Medical Summary | Continuity of Care Document ---
Author Name Lab - [place] Address [address] [place] [address] Phone [phone] Organization Family Practice [facility], Address [address] [place] [address] Phone [phone] Problems Active Problems Provider Date Essential hypertension [...] SIG Qnty Indications Order ing Provider Date Ufqbbva30DL/Scoop Powder take one scoop as directed daily as needed 119gm K59.00 Alice Camara MD 08/18/2022 Cyanocobalamin (Vit B-12) 1,000 mcg Sublingual1,000mcg Tablet Dissolve Three Tablet On The Tongue Once Daily 90tabs Alice Camara MD 01/13/2022 [facility] Vitamin [id number] (41999 Ut) Capsules 1 by mouth every day 90caps Alice Camara MD 05/07/2021 Potassium Chloride TH40Yaq Tablets ER Take One Tablet By Mouth Once Daily 90tabs Cam Hendricks MD 04/13/2021 Aspirin Adult Low Rhcz47wg Tablets DR 1 by mouth QHS 90tabs Cam Hendricks MD 05/07 Centrum AdultsTablets 1 by mouth QHS 90tabs Armand brenden Hendricks MD 05/17/2020 Escitalopram Cxrurfu9ft Tablets take one-half tablet by mouth at bedtime 90tabs F41.1 Alice Camara MD 06/14/[address] Take One Tablet By Mouth Once Daily 30tabs Alice Camara MD 05/13/2019 Donepezil HCL5mg Tablets Take One Tablet By Mouth Once Daily 28tabs Alice Camara MD 02/25/2019 Atorvastatin Wtubmky53jr Tablets take 1 tablet by mouth once daily at bedtime 90tabs E78.5 Alice Camara MD 12/06/2017 Gwtmaqodwd03kn Tablets take 1 tablet by mouth once daily in the morning 90tabs I10 Alice Camara MD 04/12/2017 [facility] M54.5 Edwardo Hua DO 03/12/2017 Ggwzhmnzux14mr Tablets Take 1 Tablet By Mouth Once Daily AT Bedtime 90tabs Alice Camara MD Medications Administered in Office Medication SIG Qnty Indications Ordering Provider Date Injection Kenalog 10 MG NDC [id number] JENY Davenport 03/06/2019 Injection Kenalog 10 MG NDC [id number] JENY Davenport 05/09/2018 Injection Dexamethasone Sodium Phosphate, 1 MGInjection JENY Shay 05/09/2018 Injection Kenalog 10 MG NDC [id number] [place] Brandon PA-C 05/04/2017 Injection Dexamethasone Sodium Phosphate, 1 MGInjection [place] Brandon PA-C Immunizations CPT Code Status Date Vaccine Lot # [id number] Given 08/22/2022 Moderna Sars-Co v-2 (Covid-19) Vaccine, BiValent Booster [id number] 29116 Given 02/17/2022 Influenza Virus Vaccine, Quadrivalent (Cciiv4), Derived From Cell [id number] 36858 Given 05/26/2021 Shingrix [id number] 74577 Given 04/11/2021 Moderna Covid-19 Vaccine 50mcg Booster [id number] 99459 Given 04/11/2021 Influenza Virus Vaccine, Quadrivalent (Cciiv4), Derived From 4 Given 09/10/2020 Moderna Sars-Co v-2 (Covid-19) vaccine, 100 mcg/ 0.5 mL 12Y+ [id number] 96639 Given 08/13/2020 Moderna Sars-Co v-2 (Covid-19) vaccine, 100 mcg/ 0.5 mL 12Y+ [id number] 57506 Given 03/27/2019 Pneumococcal Vaccine/Pneu movax 23 [id number] 15086 Given 03/06/2019 Influenza Virus Vaccine, Quadrivalent (Cciiv4), Derived From 8 Given 02/14/2018 Influenza Vacci ne Quadrivalent Preser/Antibiotic Free Im Use [id number] 52776 Given 11/08/2017 Tdap (Tetanus, diphtheria & acel. pertussis) Adacel or Boostrix [id number] 33250 Given 11/08/2017 Pneumococcal Conjugate-Pr evnar 13 15700 Given 11/08/2017 Pneumococcal Conjugate-Pr evnar 13 [id number] 69259 Given 11/08/2017 Tdap (Tetanus, diphtheria & acel. pertussis) Adacel or Boostrix 50327 Given 02/17/2017 Influenza Vacci ne-Administered at another facility U-FLU Given 02/16/2014 Influenza,Unspecified [id number] Refused 07/24/2018 Shingrix [id number] Refused 07/12/2017 Zostavax Vaccine Vital Signs Date Vital Result Comment 12/21/2022 10:58am BP Systolic 120 mmHg BP Diastolic 62 mmHg Body Temperature 97.7 F Heart Rate 89 /min Respiratory Rate 16 /min Weight 101.12 lb Weight 45.870 kg Height 57 inches 4'9" BMI (Body Mass Index) 21.9 kg/m2 O2 % BldC Oximetry 99 % Addison Body Weight 100 lb 08/28/2022 3:48pm BP Systolic 124 mmHg BP Diastolic 82 mmHg Body Temperature 97.6 F Heart Rate 77 /min Respiratory Rate 14 /min Weight 102.00 lb Weight 46.267 kg Height 57 inches 4'9" BMI (Body Mass Index) 22.1 kg/m2 O2 % BldC Oximetry 98 % Addison Body Weight 100 lb Results Test Acquired Date Facility Test Result H/L Range N ote Laboratory test finding 12/26/2022 [facility] [address], [place] [address] [phone] Vitd-25Oh <pending> CBC W/Diff 12/21/2022 [facility] [address], [place] [address] [phone] WBC COMMENT 10^3/M3 3.1-9.2 RBC COMMENT 10^6/M3 3.70-5.50 HGB COMMENT GR/DL 11.5-16.1 HCT COMMENT % 34.5-47.8 MCV COMMENT CUMICR 82.6-95.8 MCH COMMENT PICOGR 27.9-32.9 MCHC COMMENT % 32.6-35.4 RDW COMMENT % 11.4-14.6 PLT COMMENT 10^3/M3 140-350 MPV COMMENT CUMICR 7.0-10.6 %Neut COMMENT % 40.0-75.0 %Lymph COMMENT % 17.0-45.0 %[place] COMMENT % 1.0-11.0 %Eos COMMENT % 0.0-6.0 %Bas[place] COMMENT % 0.0-2.0 #Neut COMMENT 10^3/M3 1.5-8.0 #Lymph COMMENT 10^3/M3 0.8-3.2 #[place] COMMENT 10^3/M3 0.0-0.8 #Eos COMMENT 10^3/m3 0.0-0.4 #Baso COMMENT 10^3/m3 0.0-0.2 Comp. Met 12/21/2022 [facility] [address] [place] [address] [phone] Glucose COMMENT mg/dL 70-110 BUN COMMENT mg/dL [...] 2.0-3.4 GFR COMMENT Low >60 Lipid 12/21/2022 [facility] [address], [place] [address] [phone] Cholesterol COMMENT mg/dL 0-200 1 Triglyceride COMMENT mg/dL 0-150 HDLD COMMENT mg/dL See Comment Measured LDL COMMENT mg/dL 0-130 Calc VLDL COMMENT mg/dL See Comment Chol/HDL COMMENT RATIO See Comment Non-HDL COMMENT mg/dL See Comment TSH With Reflex 12/21/2022 [facility] [address] [place] [address] [phone] TSH (Reflex) COMMENT uIU/mL 0.50-6.00 Laboratory test finding 12/21/2022 [facility] [address] [place] [address] [phone] Vitd-25Oh COMMENT ng/mL 30-100 1 ORDER TRANSMITTED TO LABORATORY. NO SPECIMENS RECEIVED FOR TESTING. 8.18.23 MOHSEN Procedures Date Code Description Status 12/26/2022 62688 Venipuncture Routine Complet ed 12/21/2022 20804 Venipuncture Routine Complet ed 12/21/2022 3078F PVRP [...] Systolic BP <130 mmHg C ompleted 01/03/2019 24502746 Mammogram Completed 08/13/2014 02713670 Colonoscopy Completed 02/28/2010 70960933 Colonoscopy Completed 02/02/2009 289865640 Bone Mineral Density Test Co mpleted Medical [...] 1:30 pm - Alice Camara MD at [facility] 12/21/2022 - Alice Camara MD* K59.00 Constipation, unspecified* Comments:* Drink plenty of fluid follow high fiber diet * Follow up:* f/up in 3 months * E78.5 Hyperlipidemia, unspecified * I10 Essential (primary) hypertension * M79.604 Pain in right leg Functional Status Description No Information Available Mental Status Description No Information Available Referrals Description No Information Available
--- OUTSIDE RECORDS SUMMARY | 2023-04-24 15:33 | External Medical Summary | Continuity of Care Document ---
Author Name ALICE CAMARA MD Address [address] [place] [address] Phone [phone] [facility] Address [address] [place] [address] Phone [phone] Problems Active Problems Provider Date Essential hypertension [...] SIG Qnty Indications Order ing Provider Date Saejoos59CC/Scoop Powder take one scoop as directed daily as needed 119gm K59.00 Alice Camara MD 08/18/2022 Cyanocobalamin (Vit B-12) 1,000 mcg Sublingual1,000mcg Tablet Dissolve Three Tablet On The Tongue Once Daily 90tabs Alice Camara MD 01/13/2022 [facility] Vitamin T3887qfy (86946 Ut) Capsules 1 by mouth every day 90caps Alice Camara MD 05/07/2021 Potassium Chloride TS86Duw Tablets ER Take One Tablet By Mouth Once Daily 90tabs Cam Hendricks MD 04/13/2021 Aspirin Adult Low Ytgy98ww Tablets DR 1 by mouth QHS 90tabs Cam Hendricks MD 05/07 Centrum AdultsTablets 1 by mouth QHS 90tabs Armand brenden Hendricks MD 05/17/2020 Escitalopram Zgiucym9dm Tablets take one-half tablet by mouth at bedtime 90tabs F41.1 Alice Camara MD 06/14/[address] Take One Tablet By Mouth Once Daily 30tabs Alice Camara MD 05/13/2019 Donepezil HCL5mg Tablets Take One Tablet By Mouth Once Daily 28tabs Alice Camara MD 02/25/2019 Atorvastatin Gmgpfmg33we Tablets take 1 tablet by mouth once daily at bedtime 90tabs E78.5 Alice Camara MD 12/06/2017 Wwazljcsub72ws Tablets take 1 tablet by mouth once daily in the morning 90tabs I10 Alice Camara MD 04/12/2017 [facility] 1units M54.5 Edwardo Hua DO 03/12/2017 Fdnbpbgolb81wi Tablets Take 1 Tablet By Mouth Once Daily AT Bedtime 90tabs Alice Camara MD Medications Administered in Office Medication SIG Qnty Indications Ordering Provider Date Injection Kenalog 10 MG NDC [id number] JENY Davenport 03/06/2019 Injection Kenalog 10 MG NDC 30495683581Tygnbkfwz JENY Davenport 05/09/2018 Injection Dexamethasone Sodium Phosphate, 1 MGInjection JENY Shay 05/09/2018 Injection Kenalog 10 MG NDC [id number] [place] Brandon PA-C 05/04/2017 Injection Dexamethasone Sodium Phosphate, 1 MGInjection [place] Brandon PA-C Immunizations CPT Code Status Date Vaccine Lot # [id number] Given 08/22/2022 Moderna Sars-Co v-2 (Covid-19) Vaccine, BiValent Booster [id number] 73276 Given 02/17/2022 Influenza Virus Vaccine, Quadrivalent (Cciiv4), Derived From Cell [id number] 86588 Given 05/26/2021 Shingrix [id number] 60264 Given 04/11/2021 Moderna Covid-19 Vaccine 50mcg Booster [id number] 37553 Given 04/11/2021 Influenza Virus Vaccine, Quadrivalent (Cciiv4), Derived From 5 Given 09/10/2020 Moderna Sars-Co v-2 (Covid-19) vaccine, 100 mcg/ 0.5 mL 12Y+ [id number] 40495 Given 08/13/2020 Moderna Sars-Co v-2 (Covid-19) vaccine, 100 mcg/ 0.5 mL 12Y+ [id number] 06292 Given 03/27/2019 Pneumococcal Vaccine/Pneu movax 23 [id number] 93373 Given 03/06/2019 Influenza Virus Vaccine, Quadrivalent (Cciiv4), Derived From 4 Given 02/14/2018 Influenza Vacci ne Quadrivalent Preser/Antibiotic Free Im Use [id number] 18331 Given 11/08/2017 Tdap (Tetanus, diphtheria & acel. pertussis) Adacel or Boostrix [id number] 41588 Given 11/08/2017 Pneumococcal Conjugate-Pr evnar 13 22343 Given 11/08/2017 Pneumococcal Conjugate-Pr evnar 13 [id number] 48275 Given 11/08/2017 Tdap (Tetanus, diphtheria & acel. pertussis) Adacel or Boostrix 01953 Given 02/17/2017 Influenza Vacci ne-Administered at another facility U-FLU Given 02/16/2014 Influenza,Unspecified 49208 Refused 07/24/2018 Shingrix [id number] Refused 07/12/2017 Zostavax Vaccine Vital Signs Date Vital Result Comment 12/21/2022 10:58am BP Systolic 120 mmHg BP Diastolic 62 mmHg Body Temperature 97.7 F Heart Rate 89 /min Respiratory Rate 16 /min Weight 101.12 lb Weight 45.870 kg Height 57 inches 4'9" BMI (Body Mass Index) 21.9 kg/m2 O2 % BldC Oximetry 99 % Peck Body Weight 100 lb 08/28/2022 3:48pm BP Systolic 124 mmHg BP Diastolic 82 mmHg Body Temperature 97.6 F Heart Rate 77 /min Respiratory Rate 14 /min Weight 102.00 lb Weight 46.267 kg Height 57 inches 4'9" BMI (Body Mass Index) 22.1 kg/m2 O2 % BldC Oximetry 98 % Peck Body Weight 100 lb Results Test Acquired Date Facility Test Result H/L Range N ote Laboratory test finding 12/21/2022 [facility]. [address], [place] [address] [phone] Vitamin D 25 (Oh) <pending> Procedures Date Code Description Status 12/21/2022 91739 Venipuncture Routine Complet ed 08/22/2022 3288F Fall Risk Assessment Documen jessica Completed 08/22/2022 1100F PT Screened Futu re Fall Risk >/=2 Falls In Past Yr/1 W/Injury Completed 08/22/2022 0064A Moderna Covid-19 Vaccine 50mcg Administration - Booster Completed 08/18/2022 3079F PVRP Diastolic BP 80-89 MMHG Completed 08/18/2022 3074F PVRP Systolic BP <130 mmHg C ompleted 01/03/2019 07971118 Mammogram Completed 08/13/2014 54917747 Colonoscopy Completed 02/28/2010 80774221 Colonoscopy Completed 02/02/2009 973115733 Bone Mineral Density Test Co mpleted Medical [...] 1:30 pm - Alice Camara MD at [place] 12/21/2022 - Alice Camara MD* K59.00 Constipation, unspecified* Comments:* Drink plenty of fluid follow high fiber diet * Follow up:* f/up in 3 months * E78.5 Hyperlipidemia, unspecified * I10 Essential (primary) hypertension * M79.604 Pain in right leg Functional Status Description No Information Available Mental Status Description No Information Available Referrals Description No Information Available
[2023-04-24] MEDS ORDERED: LACTATED RINGER'S 1,000 ML IV SCH (16:00)
[2023-04-24] MEDS ORDERED: bisacodyL 10 MG SUPP PR PRN (16:41)
[2023-04-24] MEDS ORDERED: NALOXONE HCL 0.4 MG/1 ML VIAL/CARP IV PRN (16:41)
[2023-04-24] MEDS ORDERED: MAGNESIUM HYDROXIDE SUSP 30 ML UDC PO PRN (16:41)
[2023-04-24] MEDS ORDERED: TRANEXAMIC ACID / 0.7% NACL 1,000 MG/100 ML BAG IV ONE (17:22)
[2023-04-24] MEDS ORDERED: PLASMA-LYTE A 1,000 ML IV ONE (17:51)
[2023-04-24] MEDS: cefTRIAXone SODIUM 2,000 MG in DEXTROSE 5 % MINI-B 50 ML IV SCH (18:17)
[2023-04-24] MEDS: PLASMA-LYTE A 1,000 ML IV SCH (18:17)
[2023-04-24 18:39] LABS: C Reactive Protein < 0.50 mg/dl (0-0.5)
[2023-04-24 19:45] LABS: Magnesium 1.8 mg/dl (1.7-2.4)
--- NOTE | 2023-04-24 20:41 | Communication Note ---
Date of Service: April 24, 2023 Urinalysis grossly positive for infection - this was a catheter sample. Patient unlikely to say if she has any symptoms even if she did. WBC elevated previously suspected secondary to her fall however with her tachycardia this is concerning for infection. Blood cultures, procalcitonin, CRP, ceftriaxone ordered. Follow- up blood and urine cultures.
[2023-04-24] MEDS: LATANOPROST 0.005% OP SOLN 2.5 ML BTL OPB SCH (21:20)
[2023-04-24] MEDS: DORZOLAMIDE/TIMOLOL 22.3/6.8MG/ML 10 ML BTL OPB SCH (21:21)
[2023-04-24] MEDS: FAMOTIDINE 40 MG TABLET PO SCH (21:21)
[2023-04-24] MEDS: ESCITALOPRAM OXALATE ORAL SOLN 5 MG/5 ML PO SCH (21:21)
[2023-04-25] MEDS: ACETAMINOPHEN 325 MG TAB PO PRN ×2 (00:46→15:44)
[2023-04-25] MEDS ORDERED: ACETAMINOPHEN 1,000 MG/100 ML VIAL IV PRN (01:36)
[2023-04-25] MEDS ORDERED: HYDROmorphone INJ 0.5 MG/0.5 ML SYR IV PRN ×2 (01:36)
[2023-04-25] MEDS: PLASMA-LYTE A 1,000 ML IV SCH (02:32)
[2023-04-25] MEDS ORDERED: ceFAZolin 2000MG 2,000 MG/15 ML SYR IV SCH (06:00)
[2023-04-25 07:54] LABS: Hematocrit (blood only) 36.2 % (37.0-47.0); Mean Corpuscular Hemoglobin 29.3 pg (25.0-34.0); Mean Corpuscular Hgb Conc 33.1 g/dL (32.0-36.0); Mean Corpuscular Volume 88.5 fL (80.0-100.0); Mean Platelet Volume 10.7 fL (9.4-12.4); Platelet Count 224 K/uL (130-400); RDW Coefficient of Variation 12.6 % (11.5-14.5); Red Blood Count 4.09 M/uL (4.20-5.40); White Blood Count 7.59 K/ul (4.8-10.8)
[2023-04-25 07:55] LABS: Basophils # (auto) 0.02 K/uL (0.00-0.20); Basophils % (auto) 0.3 %; Eosinophils # (auto) 0.02 K/uL (0.00-0.50); Eosinophils % (auto) 0.3 %; Immature Granulocytes # (auto) 0.02 K/uL (0.01-0.20); Immature Granulocytes % (auto) 0.3 %; Lymphocytes # (auto) 1.73 K/uL (1.20-3.40); Lymphocytes % (auto) 22.8 %; Monocytes # (auto) 0.76 K/uL (0.11-0.59); Neutrophils # (auto) 5.04 K/uL (1.40-6.50); Neutrophils % (auto) 66.3 %
[2023-04-25 07:59] LABS: Albumin Globulin Ratio 1.6 (0.9-2); Albumin Level 3.3 gm/dl (3.4-5.0); BUN Creatinine Ratio 15.9 (10-20); Bilirubin,Total 1.3 mg/dl (0.2-1.0); Creatinine Clr Calc Pharmacy 72.1 ml/min; Est GFR (African American) 107.4 ml/min; Est GFR (Non-African American) 92.7 ml/min; Globulin 2.1 gm/dl (2.5-4.0); Potassium 3.8 mmol/L (3.5-5.1); Total Protein 5.4 gm/dl (6.0-8.3)
--- NOTE | 2023-04-25 09:14 | Orthopedic Consultation ---
Date of Service April 25, 2023 Assessment & Plan (1) Intertrochanteric fracture of left hip: I had a long discussion today with the patient about her left lower extremity pathology with ample amount of time for the patient to ask any question or state any concerns. All questions and concerns were answered to the patient's satisfaction. I also did discuss this with her daughter via the telephone in which all questions and concerns were answered to the daughter satisfaction as well. At this point, she does have a displaced intertrochanteric hip fracture that does require surgical intervention. I discussed this with her daughter who is her POA due to the patient having dementia. The risk, benefits, and alternatives to intramedullary trochanteric fixation with long nail was discussed in its entirely with the patient and her daughter via telephone. The patient and her daughter wishes to proceed with surgical intervention. The daughter did state that she was going to try to make it to the hospital prior to surgery today to sign the consent. If she is unable, Dr. Aranda will call for verbal consent via the telephone. Our goal is to proceed with surgical intervention today around 11:00. She is currently being treated for a UTI. Medical clearance via the hospitalist service. Will proceed later this morning with surgical intervention once cleared by the hospitalist service. History of Present Illness Reason for Consultation: . Left intertrochanteric femur fracture Requesting Physician: . Attending Physician: Twin Murillo . Elsie is a pleasantly confused 83-year-old female who reported to the [facility] emergency department yesterday due to a fall that she sustained with immediate onset of hip pain. She notes that she lost her balance and fell and landed on her left side. From her intake form, it appears that she does not ambulate the best. She notes that her hip pain was a 10 out of 10 at the time of the fall. An x-ray in the emergency department confirmed a intertrochanteric displaced left femur fracture. She was admitted to the hospitalist service with an orthopedic consult. Today, she states that her pain is well-controlled when she does not move the left hip. She is currently not on any anticoagulation. She denies any other concerns today. Allergies Allergy/AdvReac Type Severity Reaction Status Date / Time SOAPS Allergy Mild RASH Uncoded 03/28/21 23:06 Home Medications Medication Instructions Recorded Confirmed Type donepezil 5 mg tablet 5 mg PO QPM #30 tabs 10/17/19 12/19/23 History potassium chloride 10 mEq 10 meq PO DAILY 06/13/20 04/24/23 History tablet,extended release(part/cryst) atorvastatin 10 mg tablet 5 mg PO HS 06/14/20 04/24/23 History dorzolamide 22.3 mg-timolol 6.8 1 drp OPB BID 06/14/20 04/24/23 History mg/mL eye drops escitalopram oxalate 5 mg tablet 2.5 mg PO HS 06/14/20 04/24/23 History famotidine 40 mg tablet 40 mg PO QPM 06/14/20 04/24/23 History latanoprost 0.005 % eye drops 1 drp OPB HS 06/14/20 04/24/23 History lisinopril 10 mg tablet 10 mg PO DAILY 06/14/20 04/24/23 History pantoprazole 40 mg tablet,delayed 40 mg PO DAILY 06/14/20 04/24/23 History release acetaminophen 500 mg tablet 1,000 mg PO HS 08/03/20 04/24/23 History (Tylenol Extra Strength) multivitamin 1 tab PO DAILY 08/03/20 04/24/23 History psyllium husk 3.4 gram/5.4 gram 1 tsp PO DAILY 08/03/20 04/24/23 History oral powder (Metamucil) Past Med/Surg History Medical History Diverticulitis Osteoporosis Acute gastric ulcer Cognitive disorder Generalized anxiety disorder Major depressive disorder, single episode, unspecified Moderate obstructive sleep apnea Osteoarthritis Lumbar compression fracture HTN (hypertension) CVA (cerebral vascular accident) Surgical History H/O: hysterectomy History of appendectomy Family History Father Colon cancer Mother Diabetes Other Alzheimer disease Social History Smoking Status: Former smoker Hx Alcohol Use: No Hx Substance Use: No Preferred Language: Greenlandic Communication Ability: Effective Data Support Analyst Required: No Beliefs That Will Affect Care: None Current Living Situation: Family Feels Safe at Home: Yes Safety Concerns: Feels Safe At This Time Assistive Devices: Glasses Review of Systems All systems reviewed & are unremarkable except as noted in HPI & below. Physical Exam . Constitutional: WD/Not WN, vitals as above no acute distress Eyes: PERRL, conjunctivae normal, anicteric sclerae Neck: trachea midline, no thyromegaly Respiratory: normal respiratory effort, lungs clear to auscultation Cardiovascular: RRR, no murmur, no edema Vessels: normal carotid upstroke; no carotid bruit Gastrointestinal (Abdomen): normal bowel sounds, soft, nontender, no hepatosplenomegaly Skin: no rashes, warm and dry Neurologic: CN's II-XI intact bilaterally and moves all extremities Psychiatric: Alert and oriented to person. Not oriented to place or time., euthymic affect Musculoskeletal On physical examination of the left lower extremity, left leg is shortened and externally rotated. Normal range of motion at the knee, ankle, and all 5 toes. Intact plantarflexion dorsiflexion. +2 DP and PT pulses. Less than 2-second capillary refill. Normal sensation. Neurovascular intact. Results & Data Results & Data Laboratory Results . Abnormal lab results 04/24/23 04/24/23 04/25/23 Range/Units 12:38 12:43 07:13 WBC 16.35 H (4.8-10.8) K/ul RBC 4.09 L (4.20-5.40) M/uL Hct 36.2 L (37.0-47.0) % Neut # (Auto) 13.98 H (1.40-6.50) K/uL K[place]haw # (Auto) 0.83 H 0.76 H (0.11-0.59) K/uL Creatinine 0.44 L (0.6-1.2) mg/dl Glucose 153 H (70-99(Fasting)) mg/dl Calcium 8.0 L (8.6-10.3) mg/dl Total Bilirubin 1.1 H 1.3 H (0.2-1.0) mg/dl ALT 6 L (7-52) U/L Total Protein 5.4 L (6.0-8.3) gm/dl Albumin 3.3 L (3.4-5.0) gm/dl Globulin 2.1 L (2.5-4.0) gm/dl 25-OH Vitamin D Total 11.1 L (30-100) ng/ml Urine Appearance Turbid A (Clear) Urine Protein 1+ H (Negative) Urine Ketones 1+ H (Negative) Urine Blood 2+ H (Negative) Urine Nitrite Positive A (Negative) Ur Leukocyte Esterase 3+ H (Negative) Urine WBC (Auto) >30 H (0-5) /hpf Urine RBC (Auto) 5-10 H (0-4) /hpf U Epithel Cells (Auto) 5-10 H (0-5) /lpf Urine Bacteria (Auto) 4+ H (Negative) Diagnostic Findings . Chest X-Ray 04/24/23 00:00 XR chest 1V not portable CLINICAL HISTORY: LT HIP FX FALL COMPARISON STUDY: Chest CT December 13, 2017. Chest radiograph March 28, 2021. FINDINGS: Incidental note is made of an old, healed proximal left humeral fracture. There is no pneumothorax or pleural effusion. There is no consolidation. Exam is mildly compromised given difficulty positioning. Cardiomediastinal silhouette is stable. There is no evidence for pulmonary edema. IMPRESSION: No acute cardiopulmonary findings. ACT 112: Negative or not required by law. Electronically signed by: Micky Villarreal M.D. 04/24/2023 12:44 PM Hip/Pelvis X-Ray 04/24/23 11:37 XR hip LT 2V w pelvis CLINICAL HISTORY: pain after fall. Left hip pain. COMPARISON STUDY: Left hip 06/13/2020. FINDINGS: Comminuted and displaced intertrochanteric fracture within the proximal left femur. No dislocation. The visualized pelvic bones are intact. The bones are osteopenic. No fractures within the right hip. IMPRESSION: Comminuted and displaced intertrochanteric fracture within the proximal left femur. ACT 112: Negative or not required by law. Electronically signed by: Orlando Guadarrama M.D. 04/24/2023 12:29 PM PG Care Time/CCT Total # of Minutes Spent Total Time Spent with Patient: Total time spent is greater than 50% in coordination of care (as documented) at patient's floor/unit and/or counseling patient: Coding Level of Care Code 54802 IN/OBS CONSULT LVL 3,45M Diagnoses Closed displaced intertrochanteric fracture of left femur, initial encounter S72.142A Encounter type: initial encounter Fracture type: closed Fracture alignment: displaced Additional Codes Fx Hip/Femur - Trochanteric inter-/saji-/sub-: Trochanteric inter-/saji-/sub- ([id number]) (1) Intertrochanteric fracture of left hip Encounter type: initial encounter Fracture type: closed Fracture alignment: displaced Qualified Code(s): S72.142A - Displaced intertrochanteric fracture of left femur, initial encounter for closed fracture
--- NOTE | 2023-04-25 09:22 | Communication Note ---
Date of Service: April 25, 2023 Vitals have normalized. Given increased risk of waiting 24 hours for a hip repair, no further cardiac workup is required prior to surgical intervention. This is an intermediate risk procedure. Patient's Finn is Estimated Risk Probability for Perioperative Myocardial Infarction or Cardiac Arrest 0.63 %
--- NOTE | 2023-04-25 09:54 | Anesthesiology Consultation ---
Date of Service April 25, 2023 Assessment & Plan (1) Encounter for pre-operative examination: Chart Review Chart Review: Acceptable Risk for Surgery and Patient NOT seen in Pre Admission Testing Consults Requested none Additional Notes Patient with blood cultures pending, suspected UTI, history of lumbar compression fracture, plan for GA History Surgery Operation Date: 04/25/23 07:00 Proposed Procedures p Left Long Trochanteric Femoral Nail - Romulo Aranda MD Height/Weight Height: 5 ft 2 in Weight: 48 kg Allergies Allergy/AdvReac Type Severity Reaction Status Date / Time SOAPS Allergy Mild RASH Uncoded 03/28/21 23:06 Medications Home Medications Medication Instructions Recorded Confirmed Last Taken donepezil 5 mg tablet 5 mg PO QPM #30 tabs 02/20/19 04/24/23 03/27/21 potassium chloride 10 mEq 10 meq PO DAILY 06/13/20 04/24/23 03/28/21 tablet,extended release(part/cryst) atorvastatin 10 mg tablet 5 mg PO HS 06/14/20 04/24/23 03/28/21 dorzolamide 22.3 mg-timolol 6.8 1 drp OPB BID 06/14/20 04/24/23 03/27/21 mg/mL eye drops escitalopram oxalate 5 mg tablet 2.5 mg PO HS 06/14/20 04/24/23 03/27/21 famotidine 40 mg tablet 40 mg PO QPM 06/14/20 04/24/23 03/27/21 latanoprost 0.005 % eye drops 1 drp OPB HS 06/14/20 04/24/23 03/27/21 lisinopril 10 mg tablet 10 mg PO DAILY 06/14/20 04/24/23 03/28/21 pantoprazole 40 mg tablet,delayed 40 mg PO DAILY 06/14/20 04/24/23 03/28/21 release acetaminophen 500 mg tablet 1,000 mg PO HS 08/03/20 04/24/23 03/28/21 (Tylenol Extra Strength) multivitamin 1 tab PO DAILY 08/03/20 04/24/23 08/03/20 psyllium husk 3.4 gram/5.4 gram 1 tsp PO DAILY 08/03/20 04/24/23 08/03/20 oral powder (Metamucil) Active Medications Generic Name Dose Route Start Last Admin Trade Name Freq PRN Reason Stop Dose Admin Acetaminophen 650 mg 04/24/23 16:41 04/25/23 00:46 Acetaminophen 325 Mg Tab PO 05/24/23 16:40 650 mg Q4H PRN Administration pain/fever Dorzolamide/Timolol 1 drops 04/24/23 21:00 04/24/23 21:21 Dorzolamide/Timolol 22.3/6.8mg/Ml 10 Ml Btl OPB 05/24/23 20:59 1 drops BID HENRY Administration Escitalopram Oxalate 2.5 mg 04/24/23 21:00 04/24/23 21:21 Escitalopram Oxalate Oral Soln 5 Mg/5 Ml PO 05/24/23 20:59 2.5 mg HS HENRY Administration Famotidine 40 mg 04/24/23 21:00 04/24/23 21:21 Famotidine 40 Mg Tablet PO 05/24/23 20:59 40 mg QPM HENRY Administration Ceftriaxone Sodium 2,000 mg/ 50 mls @ 100 mls/hr 04/24/23 18:00 04/24/23 18:54 Dextrose IV 04/29/23 17:59 Infused Q24H HENRY Infusion Protocol Parenteral Electrolytes 1,000 mls @ 125 mls/hr 04/24/23 18:00 04/25/23 02:32 Plasma-Lyte A Ph 7.4 IV 04/25/23 09:59 125 mls/hr .Q8H HENRY Administration Acetaminophen 1,000 mg in 100 mls @ 400 mls/hr 04/25/23 01:36 04/25/23 06:47 Ofirmev IV 04/28/23 01:35 Infused Q8H PRN Infusion Pain or fever Latanoprost 1 drops 04/24/23 21:00 04/24/23 21:20 Latanoprost 0.005% Op Soln 2.5 Ml Btl OPB 05/24/23 20:59 1 drops HS HENRY Administration NPO Date Last Intake of Fluids: 04/24/23 Last Intake of Fluids Comment: NPO since midnight per floor nurse Date Last Intake of Solids: 04/24/23 Past Medical History Medical History Diverticulitis Osteoporosis Acute gastric ulcer Cognitive disorder Generalized anxiety disorder Major depressive disorder, single episode, unspecified Moderate obstructive sleep apnea Osteoarthritis Lumbar compression fracture HTN (hypertension) CVA (cerebral vascular accident) Past Family History Family History Father Colon cancer Mother Diabetes Other Alzheimer disease Past Surgical History Surgical History H/O: hysterectomy History of appendectomy Social History Smoking Status: Former smoker Hx Alcohol Use: No Hx Substance Use: No substance use type: does not use Physical Exam Vital Signs Last Vital Signs Temp 97.9 F 04/25/23 09:33 Pulse 77 04/25/23 09:33 Resp 18 04/25/23 09:33 BP 157/95 H 04/25/23 09:33 Pulse Ox 97 04/25/23 09:33 O2 Del Method Room Air 04/25/23 09:33 Testing Laboratory Results 04/25/23 07:13 04/25/23 07:13 PT 11.3 Seconds (9.0-12.0) 04/24/23 12:38 INR 1.0 (0.9-1.1) 04/24/23 12:38 APTT 26 Seconds (21-31) 04/24/23 12:38 Urine Color Yellow 04/24/23 12:43 Urine Appearance Turbid (Clear) A 04/24/23 12:43 Urine pH 5.5 (4.5-7.5) 04/24/23 12:43 Ur Specific [place] 1.021 (1.000-1.030) 04/24/23 12:43 Urine Protein 1+ (Negative) H 04/24/23 12:43 Urine Glucose (UA) Negative (Negative) 04/24/23 12:43 Urine Ketones 1+ (Negative) H 04/24/23 12:43 Urine Nitrite Positive (Negative) A 04/24/23 12:43 Ur Leukocyte Esterase 3+ (Negative) H 04/24/23 12:43 Urine WBC (Auto) >30 /hpf (0-5) H 04/24/23 12:43 Urine RBC (Auto) 5-10 /hpf (0-4) H 04/24/23 12:43 U Hyaline Cast (Auto) 1-5 /lpf (0-5) 04/24/23 12:43 U Epithel Cells (Auto) 5-10 /lpf (0-5) H 04/24/23 12:43 Urine Bacteria (Auto) 4+ (Negative) H 04/24/23 12:43 Blood Type O Positive 04/24/23 16:50 Antibody Screen NEGATIVE 04/24/23 16:50 04/24/23 12:43 Urine Culture - Preliminary Urine,Straight Cath Gram negative bacilli Electrocardiogram Date: 04/24/23 Findings: + NSR @
[2023-04-25] MEDS ORDERED: fentaNYL citrate PF 100 MCG/2 ML VIAL IV PRN (09:55)
[2023-04-25] MEDS ORDERED: ONDANSETRON INJ 2 MG/ML 2 ML VIAL IV PRN (09:55)
[2023-04-25] MEDS ORDERED: ATROPINE SULFATE 0.1 MG/ML 10ML SYR IV PRN (09:55)
[2023-04-25] MEDS ORDERED: ePHEDrine sulfate 50 MG/ML AMP IV PRN (09:55)
--- NOTE | 2023-04-25 10:15 | History & Physical Bridge Note ---
Date of Service April 25, 2023 History & Physical Bridge Note I have examined the patient, reviewed the History & Physical and in the interval since the performance of the History & Physical I have noted the following changes of clinical significance: no changes noted
[2023-04-25] MEDS ORDERED: fentaNYL citrate PF 100 MCG/2 ML VIAL ONE (10:59)
[2023-04-25] MEDS ORDERED: BUPIVACAINE/EPINEPHRINE 0.25% 1:200,000 30 ML VIAL ONE (11:27)
[2023-04-25] MEDS ORDERED: PROPOFOL IV EMULSION 10 MG/ML 20 ML VIAL IV ONE (12:06)
[2023-04-25] MEDS ORDERED: ONDANSETRON INJ 2 MG/ML 2 ML VIAL ONE (12:06)
[2023-04-25] MEDS ORDERED: LIDOCAINE 2% 2 ML VIAL/AMP(20MG/ML) INFIL ONE (12:06)
--- NOTE | 2023-04-25 12:48 | Fluoroscopy Report ---
FL femur LT 2V CLINICAL HISTORY: LT TROCH NAIL. Left femoral fracture. COMPARISON STUDY: Left hip 04/24/2023. FLUOROSCOPY TIME: 44 seconds FLUOROSCOPY IMAGES: 4 Ka,r: 7.5 mGy FINDINGS: Status post internal fixation of the left femoral intertrochanteric fracture with a femoral intramedullary ronaldo and interlocking femoral neck pin. The hardware appears intact. Alignment is near -anatomic. IMPRESSION: Fluoroscopic assistance as above. ACT 112: Negative or not required by law. Electronically signed by: Orlando Guadarrama M.D. 04/25/2023 12:47 PM
--- NOTE | 2023-04-25 12:57 | Operative Report ---
PG Post Operative Report Pre & Post Diagnosis Operation Date: 04/25/23 07:00 Pre-Op Diagnosis: COMMINUTED AND DISPLACED INTERTROCHANTERIC FRACTUR of left hip Post-Op Diagnosis: COMMINUTED AND DISPLACED INTERTROCHANTERIC FRACTUR of left hip I identified the patient and participated in the time-out.: Yes Procedure Operation Date: 04/25/23 07:00 Actual Procedures p Left Long Trochanteric Femoral Nail(Left) - Romulo Aarnda MD Surgeon Romulo Aranda MD Sales Ledger Administrator Natanael Box PA-C Estimated Blood Loss 50 Findings Consistent with Post-Op Diagnosis Specimens None Anesthesia Type General Complications none Disposition Accompanied Patient To Recovery: No Indications Patient is an 83-year-old frail female who sustained a fall late yesterday. She had acute onset of pain and discomfort and was unable to ambulate. And brought to emergency room where x-rays revealed left intertrochanteric hip fracture. There were no other injuries. She has been admitted to the hospital medically optimized indicated for surgical treatment. Description of Procedure Operative implants consist of: 1. Synthes left 320 mm x 10 mm long trochanteric nail. 2. 85 mm helical blade. 3. 32 mm x 5 mm distal interlocking screw. The patient was taken to the op room, identified, placed on the operating table in the supine position. All contact areas were appropriately padded. IV antibiotics tried by anesthesia team. A general anesthetic was implemented. The patient was then placed on the fracture table. The left leg was placed in boot traction the right leg was placed in a well-leg weiss. I applied some longitudinal traction of the left leg and internally rotated the foot so the kneecap pointed to the ceiling. X-ray was brought in.. We were able to nearly anatomically aligned the fracture. The left hip and leg were then scrubbed oh with Hibiclens and then prepped with ChloraPrep and draped in usual sterile fashion. A slightly curvilinear incision was made just proximal to the tip of the trochanter. Sharp dissection was carried through subcutaneous tissue down below of the gluteal fascia. Gluteal fascia incised longitudinally in line with skin incision. A guidewire was placed just lateral to the tip of the greater trochanter and in line with the IM canal both the AP and lateral planes. It was advanced down the canal. This was verified fluoroscopically. Once optimal position was obtained we only overreamed this with a 17 mm reamer. This guidewire was then removed and exchanged for the ball-tipped guidewire. This was placed down the IM canal. We then measured for nail length and 320 mm nail was selected. I then reamed over the guidewire beginning with 8 and half millimeter reamer and progressing up to . We did get chatter at about 11 so we elected to place a 10 mm nail. A 320 mm x 10 mm left long trochanteric nail was then placed over the guidewire. Was tapped in good position. The lateral aiming arm was placed. A stab incision was made in the lateral aiming arm was advanced to the lateral aspect the femur. Guidewire was placed in the area of the femoral neck and head in the AP and lateral plane in the central aspect of the neck. This was then measured. The cortical step drill was then used to breach the cortex and the triple reamer was used to ream the screw path. An 85 mm helical blade was placed. Was tapped into position. It was checked fluoroscopically. The proximal setscrew was tightened and the aiming arm was removed. Some final x-rays were obtained. Attention drawn toward distal interlocking. Using the perfect cheesh-na technique a distal interlocking screw was placed in the dynamic hole in the distal portion to allow some dynamization. Stab incision was made. The drill was used and the screw was placed. Some final x-rays were obtained. Attention drawn toward closing. All wounds were irrigated with copious of normal saline. I injected locally with 30 cc of half percent Marcaine with epinephrine. The gluteal fascia was then closed with #1 Vicryl suture in a running fashion. The subcutaneous tissues of all wounds were closed with 2-0 Dexon suture in a buried interrupted fashion skin was then closed with skin lizabeth. Leg was then cleaned and dried and sterile dressing was Xeroform, 4 fours, ABD pad and foam tape was applied. The patient was then taken off the fracture table and placed on the transport table. She was brought out of general anesthesia and transferred to the recovery room in stable condition. Patient tolerated the procedure well and there were no complications. Natanael Box, my physician assistant professor of art, was present for the entire procedure. His assistance was required for proper patient positioning, prepping and draping, surgical exposure, retraction, performing the technical details of the operation, placement of hardware, closure of the incision sites, and placement of the sterile bandage. I attest to the content of the Intraoperative Record and any orders documented therein. Any exceptions are noted below.
[2023-04-25] MEDS ORDERED: LABETALOL HCL IV 5 MG/ML 20ML IV ONE (12:58)
[2023-04-25] MEDS ORDERED: LABETALOL HCL IV 5 MG/ML 20ML IV PRN (13:17)
--- NOTE | 2023-04-25 13:34 | Anesthesiology Progress Note ---
Date of Service April 25, 2023 Anesthesia Post Procedure Vital Signs Vital Signs: Temp Pulse Pulse Pulse Resp BP BP 04/25/23 13:20 36.4 C L 52 L 14 161/85 H 04/25/23 13:10 59 L 15 163/74 H 04/25/23 13:00 56 L 13 147/68 H 04/25/23 13:00 80 193/89 H 04/25/23 12:51 36 C L 82 13 04/25/23 09:33 36.6 C 77 18 04/25/23 08:02 36.7 C 69 14 04/25/23 07:55 04/25/23 07:00 68 04/25/23 03:00 37.1 C 74 16 135/81 04/24/23 23:32 37.1 C 70 16 157/81 H 04/24/23 21:59 71 04/24/23 20:17 116 H 04/24/23 20:09 04/24/23 20:09 36.6 C 119 H 18 164/88 H 04/24/23 16:55 15 04/24/23 16:50 118 H 24 04/24/23 16:49 125 H 23 04/24/23 16:49 149/99 H 04/24/23 16:40 113 H 23 04/24/23 16:30 113 H 21 04/24/23 16:20 117 H 23 04/24/23 16:16 160/108 H 04/24/23 16:16 116 H 22 04/24/23 16:00 158/115 H 04/24/23 16:00 135 H 17 04/24/23 15:50 130 H 19 04/24/23 15:40 132 H 04/24/23 15:30 152/109 H 04/24/23 15:30 128 H 22 04/24/23 15:20 132 H 04/24/23 15:10 121 H 19 04/24/23 15:10 121 H 04/24/23 15:00 157/97 H 04/24/23 15:00 116 H 19 04/24/23 14:50 120 H 23 04/24/23 14:40 118 H 04/24/23 14:30 151/96 H 04/24/23 14:30 113 H 04/24/23 14:20 122 H 24 04/24/23 14:10 127 H 22 04/24/23 14:00 109 H 20 04/24/23 14:00 168/107 H 04/24/23 13:50 115 H 20 04/24/23 13:40 124 H 19 BP Pulse Ox O2 Del Method O2 Flow Rate 04/25/23 13:20 97 Room Air 04/25/23 13:10 100 Oxymask 5 04/25/23 13:00 100 Oxymask 5 04/25/23 13:00 04/25/23 12:51 194/90 H 100 Oxymask 11 04/25/23 09:33 157/95 H 97 Room Air 04/25/23 08:02 159/88 H 97 Room Air 04/25/23 07:55 Room Air 04/25/23 07:00 04/25/23 03:00 96 Room Air 04/24/23 23:32 96 Room Air 04/24/23 21:59 04/24/23 20:17 04/24/23 20:09 Room Air 04/24/23 20:09 95 Room Air 04/24/23 16:55 04/24/23 16:50 96 04/24/23 16:49 04/24/23 16:49 04/24/23 16:40 95 04/24/23 16:30 94 04/24/23 16:20 95 04/24/23 16:16 04/24/23 16:16 95 04/24/23 16:00 04/24/23 16:00 94 04/24/23 15:50 96 04/24/23 15:40 96 04/24/23 15:30 04/24/23 15:30 95 04/24/23 15:20 95 04/24/23 15:10 96 04/24/23 15:10 04/24/23 15:00 04/24/23 15:00 96 04/24/23 14:50 96 04/24/23 14:40 96 04/24/23 14:30 04/24/23 14:30 96 04/24/23 14:20 96 04/24/23 14:10 97 04/24/23 14:00 96 04/24/23 14:00 04/24/23 13:50 96 04/24/23 13:40 97 Pain Intensity Left Hip: Pain Intensity: 0 Transfer of Care Handoff Completed per policy Notes Mental Status: alert / awake / arousable Patient Amnestic to Procedure: Yes Nausea / Vomiting: adequately controlled Pain: adequately controlled Airway Patency, RR, SpO2: stable & adequate BP & HR: stable & adequate Hydration State: stable & adequate Anesthetic Complications: no major complications apparent
[2023-04-25] MEDS: DOCUSATE SODIUM 100 MG CAP PO SCH ×2 (14:31→20:57)
[2023-04-25] MEDS: PANTOprazole 40 MG TAB PO SCH (14:32)
[2023-04-25] MEDS: DORZOLAMIDE/TIMOLOL 22.3/6.8MG/ML 10 ML BTL OPB SCH ×2 (14:32→20:59)
[2023-04-25] MEDS: SODIUM CHLORIDE 0.9% 1,000 ML IV SCH (15:23)
[2023-04-25] MEDS: cefTRIAXone SODIUM 2,000 MG in DEXTROSE 5 % MINI-B 50 ML IV SCH (17:20)
[2023-04-25] MEDS: ceFAZolin 1000MG 1,000 MG/7.5 ML SYR IV SCH (18:22)
[2023-04-25] MEDS: ACETAMINOPHEN 500 MG TAB PO SCH (20:57)
[2023-04-25] MEDS: FAMOTIDINE 40 MG TABLET PO SCH (20:57)
[2023-04-25] MEDS: DONEPEZIL HCL 5 MG TAB PO SCH (20:57)
[2023-04-25] MEDS: LATANOPROST 0.005% OP SOLN 2.5 ML BTL OPB SCH (20:59)
[2023-04-25] MEDS: ESCITALOPRAM OXALATE ORAL SOLN 5 MG/5 ML PO SCH (20:59)
[2023-04-25] MEDS: ASPIRIN 81 MG ECTAB PO SCH (20:59)
[2023-04-25] MEDS: ATORVASTATIN 10 MG TAB PO SCH (21:00)
--- NOTE | 2023-04-25 22:10 | Hospitalist Progress Note ---
Date of Service April 25, 2023 Assessment & Plan (1) Intertrochanteric fracture of left hip: Plan: COMMINUTED AND DISPLACED INTERTROCHANTERIC FRACTUR of left hip S/P Left Long Trochanteric Femoral Nail Patient does not appear to have capacity to make her own decisions at this time. Consent will need to be gained from her daughter Zoey [place] ([phone]) - number in chart is her old phone number. Pain control with acetaminophen PRN first-line, Dilaudid PRN second line Docusate 100 mg p.o. BID Patient tolerated procedure. For cystitis: On rocephin IV. WBC normalized. 3 days should be sufficient. (2) Osteoporosis: Plan: Diagnosis from chart. No DEXA scan available to review. Consider outpatient DEXA scan on discharge and for primary care physician to consider osteoporosis treatment. Vitamin D level with a.m. labs (3) Abnormal EKG: Plan: Significant EKG changes since 2020 ST depression in anterior leads and T wave inversion in anterior lateral leads. No chest pain or shortness of breath to suggest acute coronary syndrome, troponin pending Sinus tachycardia on the monitor. Possibly has a stress reaction to the fall. No significant symptoms prior to the fall. No pneumonia on chest x-ray, urinalysis pending Rehydrated with intravenous fluids, treat pain and monitor (4) Moderate obstructive sleep apnea: Plan: Does not use CPAP at home (5) Chronic gastroesophageal reflux disease: Plan: No current symptoms Continue pantoprazole and famotidine (6) Dementia: Plan: Continue donepezil 5 mg p.o. QPM Patient does not appear to have capacity to make her own medical decisions at this time (7) HTN (hypertension): Plan: Hold lisinopril presurgery, consider restarting postsurgery pending serial blood pressure measurements (8) Osteoporotic hip fracture: (9) Mixed hyperlipidemia: Plan: Continue atorvastatin (10) Anxiety: Plan: Continue Lexapro Plan VTE prophylaxis - deferred preoperatively Diet - regular, NPO after midnight Disposition - admit to med/tele Admission and Anticipated Discharge Date Admission Date: April 24, 2023 Subjective Patient reports no new symptoms. SHe is a poor historian. Daughter at bedside and is updated. Review of Systems Review of Systems: All systems reviewed & are unremarkable except as noted in HPI & below Physical Exam Constitutional: well developed; + not well nourished and no acute distress Eyes: PERRL, conjunctivae normal, anicteric sclerae (left pupil mildly larger than right) ENMT: Mouth: + dry oral mucous membranes Respiratory: normal respiratory effort; no respiratory distress Auscultation: lungs clear to auscultation bilaterally; breath sounds present, no diminished lung sounds, no crackles, no rales, no rhonchi and no wheezes Cardiovascular: Rate/Rhythm: regular rate and regular rhythm Heart Sounds: no murmur Extremities: normal capillary refill; no calf tenderness and no pedal edema Gastrointestinal (Abdomen): normal bowel sounds, soft, nontender, no hepatosplenomegaly Musculoskeletal: \ Skin: no rashes, warm and dry Neurologic: awake and + confused; + does not move all extremities Psychiatric: Orientation: alert and oriented to person; + not oriented to place and + not oriented to time Genitourinary: no CVA tenderness Results & Data Results & Data Vital Signs (Past 12 Hours) Vital Signs Temp Pulse Pulse Pulse Resp BP BP 04/25/23 20:00 36.3 C L 92 H 18 04/25/23 17:30 36.7 C 84 16 132/91 04/25/23 17:00 36.7 C 84 16 132/91 04/25/23 16:15 36.7 C 64 16 140/80 04/25/23 15:36 36.6 C 56 L 14 132/91 04/25/23 15:15 56 L 04/25/23 15:00 36.7 C 57 L 14 150/86 H 04/25/23 14:30 36.7 C 57 L 16 146/96 H 04/25/23 14:30 36.5 C 58 L 14 155/82 H 04/25/23 14:15 36.5 C 56 L 14 165/76 H 04/25/23 14:00 36.4 C L 55 L 14 04/25/23 13:50 54 L 15 181/78 H 04/25/23 13:40 57 L 15 184/80 H 04/25/23 13:30 53 L 15 186/82 H 04/25/23 13:20 36.4 C L 52 L 14 161/85 H 04/25/23 13:10 59 L 15 163/74 H 04/25/23 13:00 56 L 13 147/68 H 04/25/23 13:00 80 193/89 H 04/25/23 12:51 36 C L 82 13 BP Pulse Ox O2 Del Method O2 Flow Rate 04/25/23 20:00 121/83 98 Room Air 04/25/23 17:30 97 Room Air 04/25/23 17:00 97 Room Air 04/25/23 16:15 96 Room Air 04/25/23 15:36 Room Air 04/25/23 15:15 04/25/23 15:00 96 Room Air 04/25/23 14:30 95 Room Air 04/25/23 14:30 95 Room Air 04/25/23 14:15 Room Air 04/25/23 14:00 144/94 H 96 Room Air 04/25/23 13:50 96 Room Air 04/25/23 13:40 96 Room Air 04/25/23 13:30 98 Room Air 04/25/23 13:20 97 Room Air 04/25/23 13:10 100 Oxymask 5 04/25/23 13:00 100 Oxymask 5 04/25/23 13:00 04/25/23 12:51 194/90 H 100 Oxymask 11 PG Care Time/CCT Total # of Minutes Spent Total Time Spent with Patient: Total time spent is greater than 50% in coordination of care (as documented) at patient's floor/unit and/or counseling patient: Coding Level of Care Code 46570 SUB INP/OBS CARE 2/35MIN Diagnoses Closed displaced intertrochanteric fracture of left femur, initial encounter S72.142A Encounter type: initial encounter Fracture alignment: displaced Fracture type: closed Age-related osteoporosis with current pathological fracture, initial encounter M80.00XA Encounter type: initial encounter Osteoporosis type: age-related Presence of current pathological fracture: with current pathological fracture Abnormal EKG R94.31 Moderate obstructive sleep apnea G47.33 Chronic gastroesophageal reflux disease K21.9 Dementia F03.90 HTN (hypertension) I10 Fracture of left hip due to osteoporosis, initial encounter M80.052A Encounter type: initial encounter Laterality: left Mixed hyperlipidemia E78.2 Anxiety F41.9 (1) Intertrochanteric fracture of left hip Encounter type: initial encounter Fracture alignment: displaced Fracture type: closed Qualified Code(s): S72.142A - Displaced intertrochanteric fracture of left femur, initial encounter for closed fracture (2) Osteoporosis Encounter type: initial encounter Osteoporosis type: age-related Presence of current pathological fracture: with current pathological fracture Qualified Code(s): M80.00XA - Age-related osteoporosis with current pathological fracture, unspecified site, initial encounter for fracture (8) Osteoporotic hip fracture Encounter type: initial encounter Laterality: left Qualified Code(s): M80.052A - Age-related osteoporosis with current pathological fracture, left femur, initial encounter for fracture
[2023-04-26] MEDS: ceFAZolin 1000MG 1,000 MG/7.5 ML SYR IV SCH (03:39)
[2023-04-26] MEDS: SODIUM CHLORIDE 0.9% 1,000 ML IV SCH (03:39)
--- NOTE | 2023-04-26 07:04 | Surgery Progress Note ---
Date of Service April 26, 2023 Assessment & Plan (1) Osteoporotic hip fracture: Plan: 83-year-old female with some underlying dementia and multiple other medical comorbidities postop day 1 from IM nailing of left inotrope fracture. She looks stable. Looks comfortable. She is neurologically intact. Plan: 1. DVT prophylaxis to include thigh-high teds, SCDs, would recommend a baby aspirin twice a day for 6 weeks. 2. PT/OT. She can weight-bear as tolerated. No physical restrictions. 3. Pain control doing okay with current pain regimen. Recommend limit block narcotics to avoid confusion. 4. His medical manage management as per the medicine service. 5. Disposition. She is orthopedically okay for discharge anytime medically stable. I did see her back 2 to 3 weeks from surgery date. Any orthopedic questions can recommend [phone] (2) Intertrochanteric fracture of left hip: Admission and Anticipated Discharge Date Admission Date: April 24, 2023 Subjective 83-year-old female postop day 1 from IM nailing of left inotrope fracture. She is resting in bed looks comfortable. A little bit difficult to arouse this morning and get to follow commands. No new complaints. Physical Exam Physical Exam: Physical examination was a pleasant elderly female. She is lying in bed and looks pretty comfortable. She is resting comfortably. Examination left leg reveals the leg to be well aligned. Dressings clean dry and intact. Thigh is soft and supple. She is neurologically stable. Results & Data Vital Signs (Past 12 Hours) Vital Signs Temp Pulse Pulse Resp BP Pulse Ox O2 Del Method 04/26/23 02:59 36.8 C 82 18 123/78 96 Room Air 04/26/23 00:00 61 04/25/23 23:29 36.6 C 70 18 125/77 96 Room Air 04/25/23 20:00 36.3 C L 92 H 18 121/83 98 Room Air Laboratory Results Morning labs are pending PG Care Time/CCT Total # of Minutes Spent Total Time Spent with Patient: Total time spent is greater than 50% in coordination of care (as documented) at patient's floor/unit and/or counseling patient: Coding Level of Care Code 09351 Post Operative Follow-Up Diagnoses Fracture of left hip due to osteoporosis, initial encounter M80.052A Encounter type: initial encounter Laterality: left Closed displaced intertrochanteric fracture of left femur, initial encounter S72.142A Encounter type: initial encounter Fracture type: closed Fracture alignment: displaced (1) Osteoporotic hip fracture Encounter type: initial encounter Laterality: left Qualified Code(s): M80.052A - Age-related osteoporosis with current pathological fracture, left femur, initial encounter for fracture (2) Intertrochanteric fracture of left hip Encounter type: initial encounter Fracture type: closed Fracture alignment: displaced Qualified Code(s): S72.142A - Displaced intertrochanteric fracture of left femur, initial encounter for closed fracture
[2023-04-26 07:37] LABS: Basophils # (auto) 0.03 K/uL (0.00-0.20); Basophils % (auto) 0.4 %; Eosinophils # (auto) 0.07 K/uL (0.00-0.50); Eosinophils % (auto) 0.9 %; Hematocrit (blood only) 29.7 % (37.0-47.0); Hemoglobin 9.9 g/dl (12.0-16.0); Immature Granulocytes # (auto) 0.02 K/uL (0.01-0.20); Immature Granulocytes % (auto) 0.2 %; Lymphocytes # (auto) 2.12 K/uL (1.20-3.40); Lymphocytes % (auto) 25.9 %; Mean Corpuscular Hemoglobin 29.9 pg (25.0-34.0); Mean Corpuscular Hgb Conc 33.3 g/dL (32.0-36.0); Mean Corpuscular Volume 89.7 fL (80.0-100.0); Mean Platelet Volume 10.8 fL (9.4-12.4); Monocytes # (auto) 0.88 K/uL (0.11-0.59); Monocytes % (auto) 10.8 %; Neutrophils # (auto) 5.05 K/uL (1.40-6.50); Neutrophils % (auto) 61.8 %; Platelet Count 200 K/uL (130-400); RDW Coefficient of Variation 12.8 % (11.5-14.5); RDW Standard Deviation 42.1 fL (36.4-46.3); Red Blood Count 3.31 M/uL (4.20-5.40); White Blood Count 8.17 K/ul (4.8-10.8)
[2023-04-26 08:00] LABS: BUN Creatinine Ratio 17.6 (10-20); Calcium 7.6 mg/dl (8.6-10.3); Creatinine Clr Calc Pharmacy 61.8 ml/min; Est GFR (African American) 102.3 ml/min; Est GFR (Non-African American) 88.3 ml/min; Potassium 3.5 mmol/L (3.5-5.1)
--- NOTE | 2023-04-26 09:32 | Hospitalist Progress Note ---
Date of Service April 26, 2023 Assessment & Plan (1) Intertrochanteric fracture of left hip: Plan: COMMINUTED AND DISPLACED INTERTROCHANTERIC FRACTURE of left hip Osteoporotic hip fracture Consider outpatient DEXA scan on discharge and for primary care physician to consider osteoporosis treatment. Vitamin D level low will start replacement 04/26 S/P Left Long Trochanteric Femoral Nail 04/25/23 Dr Aranda Patient does not have capacity to make her own decisions at this time. Consent was gained from her daughter Zoey South ([phone]) - number in chart is her old phone number. She only wants [facility] at this time Pain control with acetaminophen PRN first-line, Dilaudid PRN second line Docusate 100 mg p.o. BID DVT prevention is asa 81 mg bid acute blood loss anemia not in need of transfusion For cystitis poa Rocephin x3 Days: (2) Abnormal EKG: Plan: Significant EKG changes since 2020 ST depression in anterior leads and T wave inversion in anterior lateral leads. No chest pain or shortness of breath to suggest acute coronary syndrome, troponin normal (3) Dementia: Plan: Continue donepezil 5 mg p.o. QPM Patient does not appear to have capacity to make her own medical decisions at this time Daughter at the bedside endorses [facility] or home with home health (4) HTN (hypertension): Plan: Lisinopril for blood pressure control (5) Anxiety: Plan: Continue Lexapro Plan VTE prophylaxis - GERD pantoprazole and famotidine h/o sleep apnea, refuses CPAP Admission and Anticipated Discharge Date Admission Date: April 24, 2023 Subjective Patient seen in the presence of her daughter. They are adamantly resistant to the possibility of going to nursing facility for rehab. They will only go to [facility] or go home. Patient endorses reasonable pain control requests no escalation medications past Tylenol will request increased dose of Tylenol however. Physical Exam Physical Exam: Awake hard of hearing no focal complaints except for left hip pain Cardiac exam is regular Lungs are clear Distal sensation is intact patient can wiggle toes painful to move her hip (trochanteric nail) Results & Data Results & Data Vital Signs (Past 12 Hours) Vital Signs Temp Pulse Pulse Resp BP Pulse Ox O2 Del Method 04/26/23 08:29 98.8 F 84 16 148/87 H 96 Room Air 04/26/23 07:37 59 L 04/26/23 02:59 98.2 F 82 18 123/78 96 Room Air 04/26/23 00:00 61 04/25/23 23:29 97.9 F 70 18 125/77 96 Room Air Laboratory Results Reviewed CBC reviewed chemistry PG Care Time/CCT Total # of Minutes Spent Total Time Spent with Patient: Total time spent is greater than 50% in coordination of care (as documented) at patient's floor/unit and/or counseling patient: Coding Level of Care Code 68651 SUB INP/OBS CARE 2/35MIN Diagnoses Closed displaced intertrochanteric fracture of left femur, initial encounter S72.142A Encounter type: initial encounter Fracture alignment: displaced Fracture type: closed Abnormal EKG R94.31 Dementia F03.90 HTN (hypertension) I10 Anxiety F41.9 (1) Intertrochanteric fracture of left hip Encounter type: initial encounter Fracture alignment: displaced Fracture type: closed Qualified Code(s): S72.142A - Displaced intertrochanteric fracture of left femur, initial encounter for closed fracture
[2023-04-26] MEDS: DOCUSATE SODIUM 100 MG CAP PO SCH ×2 (10:30→20:23)
[2023-04-26] MEDS: ASPIRIN 81 MG ECTAB PO SCH ×2 (10:30→20:23)
[2023-04-26] MEDS: lisinopril 10 MG TAB PO SCH (10:31)
[2023-04-26] MEDS: MULTIVITAMIN TAB PO SCH (10:31)
[2023-04-26] MEDS: CHOLECALCIFEROL 5,000 UNITS 125 MCG TAB PO SCH (10:31)
[2023-04-26] MEDS: POTASSIUM CHLORIDE 10 MEQ TABCR PO SCH (10:31)
[2023-04-26] MEDS: DORZOLAMIDE/TIMOLOL 22.3/6.8MG/ML 10 ML BTL OPB SCH ×2 (10:31→20:23)
[2023-04-26] MEDS: PSYLLIUM or GUAR GUM FIBER POWDER PACKET PO SCH (10:31)
[2023-04-26] MEDS: PANTOprazole 40 MG TAB PO SCH (10:31)
[2023-04-26] MEDS: ACETAMINOPHEN 325 MG TAB PO PRN ×2 (12:39→16:14)
[2023-04-26] MEDS ORDERED: ACETAMINOPHEN 325 MG TAB PO ONE (17:41)
[2023-04-26] MEDS: cefTRIAXone SODIUM 2,000 MG in DEXTROSE 5 % MINI-B 50 ML IV SCH (18:09)
[2023-04-26] MEDS: ATORVASTATIN 10 MG TAB PO SCH (20:23)
[2023-04-26] MEDS: LATANOPROST 0.005% OP SOLN 2.5 ML BTL OPB SCH (20:23)
[2023-04-26] MEDS: ESCITALOPRAM OXALATE ORAL SOLN 5 MG/5 ML PO SCH (20:23)
[2023-04-26] MEDS: ACETAMINOPHEN 500 MG TAB PO SCH (20:24)
[2023-04-26] MEDS: FAMOTIDINE 40 MG TABLET PO SCH (20:24)
[2023-04-26] MEDS: DONEPEZIL HCL 5 MG TAB PO SCH (20:24)
[2023-04-27] MEDS: POLYETHYLENE (MIRALAX) 17 GM PACK PO SCH ×4 (06:08→23:22)
--- NOTE | 2023-04-27 06:21 | Electrocardiogram Report ---
Test Reason : Blood Pressure : / mmHG Vent. Rate : 101 BPM Atrial Rate : 101 BPM P-R Int : 176 ms QRS Dur : 082 ms QT Int : 366 ms P-R-T Axes : 048 050 049 degrees QTc Int : 474 ms Sinus tachycardia Abnormal ECG When compared with ECG of 28-MAR-2021 22:39, Criteria for Septal infarct are no longer Present ST now depressed in Anterolateral leads T wave inversion now evident in Anterolateral leads Confirmed by Phil Ng ([id number] on 04/27/2023 6:21:02 AM Referred By: REFERRED SELF Confirmed By:Phil Ng
--- NOTE | 2023-04-27 07:07 | Surgery Progress Note ---
Date of Service April 27, 2023 Assessment & Plan (1) Intertrochanteric fracture of left hip: Plan: 83-year-old female postop day 2 from IM nailing of left inotrope fracture. Orthopedically she appears stable. The pain seems to be controlled. She is neurologically intact. Plan: 1. DVT prophylaxis including thigh-high teds, SCDs, baby aspirin twice a day for 6 weeks. 2. PT/OT. She can fully weight-bear as tolerated in the left leg. 3. Routine wound care. Daily dressing changes. 4. Medical management as per the medicine service. 5. Disposition. She is orthopedically okay for discharge anytime medically stable. I need to see her back 2 to 3 weeks out from her surgery date. Any orthopedic questions can direct me [phone] Admission and Anticipated Discharge Date Admission Date: April 24, 2023 Subjective 83-year-old female postop day 2 from IM nailing of left inotrope fracture. She denies any significant pain this morning. Physical Exam Physical Exam: Physical examination reveals an elderly frail female. She is lying in bed in resting and appears comfortable. Examination of the left leg reveals the dressing be clean dry and intact. Leg is well aligned. She does dorsiflex and plantarflex her foot on command. She is neurologically intact Results & Data Vital Signs (Past 12 Hours) Vital Signs Temp Pulse Pulse Resp BP Pulse Ox O2 Del Method 04/27/23 04:00 37.0 C 82 18 123/76 97 Room Air 04/26/23 23:55 36.7 C 83 18 148/89 H 95 Room Air 04/26/23 23:00 61 04/26/23 19:53 36.8 C 86 18 141/86 H 98 Room Air Laboratory Results Lab reports are pending this morning. PG Care Time/CCT Total # of Minutes Spent Total Time Spent with Patient: Total time spent is greater than 50% in coordination of care (as documented) at patient's floor/unit and/or counseling patient: Coding Level of Care Code 08032 Post Operative Follow-Up Diagnoses Closed displaced intertrochanteric fracture of left femur, initial encounter S72.142A Encounter type: initial encounter Fracture type: closed Fracture alignment: displaced (1) Intertrochanteric fracture of left hip Encounter type: initial encounter Fracture type: closed Fracture alignment: displaced Qualified Code(s): S72.142A - Displaced intertrochanteric fracture of left femur, initial encounter for closed fracture
[2023-04-27] MEDS: ACETAMINOPHEN 500 MG TAB PO PRN ×2 (09:32→18:23)
[2023-04-27] MEDS: DOCUSATE SODIUM 100 MG CAP PO SCH ×2 (09:33→20:01)
[2023-04-27] MEDS: CHOLECALCIFEROL 5,000 UNITS 125 MCG TAB PO SCH (09:33)
[2023-04-27] MEDS: DORZOLAMIDE/TIMOLOL 22.3/6.8MG/ML 10 ML BTL OPB SCH ×2 (09:33→20:01)
[2023-04-27] MEDS: ASPIRIN 81 MG ECTAB PO SCH ×2 (09:33→20:02)
[2023-04-27] MEDS: lisinopril 10 MG TAB PO SCH (09:34)
[2023-04-27] MEDS: PANTOprazole 40 MG TAB PO SCH (09:34)
[2023-04-27] MEDS: PSYLLIUM or GUAR GUM FIBER POWDER PACKET PO SCH (09:34)
[2023-04-27] MEDS: MULTIVITAMIN TAB PO SCH (09:34)
[2023-04-27] MEDS: POTASSIUM CHLORIDE 10 MEQ TABCR PO SCH (09:34)
--- NOTE | 2023-04-27 15:15 | Hospitalist Progress Note ---
Date of Service April 27, 2023 Assessment & Plan (1) Intertrochanteric fracture of left hip: Plan: COMMINUTED AND DISPLACED INTERTROCHANTERIC FRACTURE of left hip Osteoporotic hip fracture Consider outpatient DEXA scan on discharge and for primary care physician to consider osteoporosis treatment. Vitamin D level low started replacement 04/26 S/P Left Long Trochanteric Femoral Nail 04/25/23 Dr Aranda Patient does not have capacity to make her own decisions at this time. Consent was gained from her daughter Zoey South ([phone]) - number in chart is her old phone number. awaiting insurance review for rehab Pain control with acetaminophen PRN first-line, Dilaudid PRN second line Docusate 100 mg p.o. BID DVT prevention is asa 81 mg bid acute blood loss anemia not in need of transfusion constipation on miralax For cystitis poa Rocephin x3 Days: (2) Abnormal EKG: Plan: Significant EKG changes since 2020 ST depression in anterior leads and T wave inversion in anterior lateral leads. No chest pain or shortness of breath to suggest acute coronary syndrome, troponin normal (3) Dementia: Plan: Continue donepezil 5 mg p.o. QPM Patient does not appear to have capacity to make her own medical decisions at this time Daughter at the bedside endorses [facility] or home with home health (4) HTN (hypertension): Plan: Lisinopril for blood pressure control (5) Anxiety: Plan: Continue Lexapro Plan VTE prophylaxis - GERD pantoprazole and famotidine h/o sleep apnea, refuses CPAP Admission and Anticipated Discharge Date Admission Date: April 24, 2023 Subjective pt doing well after intertroch nail on 04/25 awaiting determination for rehab placement' pain is present but controlled Physical Exam Physical Exam: Awake hard of hearing no focal complaints except for left hip pain Cardiac exam is regular Lungs are clear Distal sensation is intact patient can wiggle toes painful to move her hip (trochanteric nail) wound is dressed but little surrounding induration Results & Data Results & Data Vital Signs (Past 12 Hours) Vital Signs Temp Pulse Pulse Resp BP BP Pulse Ox 04/27/23 12:02 97.3 F L 67 16 148/84 H 98 04/27/23 08:24 98.6 F 94 H 16 128/85 97 04/27/23 08:00 57 L 04/27/23 04:00 98.6 F 82 18 123/76 97 O2 Del Method 04/27/23 12:02 Room Air 04/27/23 08:24 Room Air 04/27/23 08:00 04/27/23 04:00 Room Air Laboratory Results Transition from med/tele to tell you all medications and orders reviewed PG Care Time/CCT Total # of Minutes Spent Total Time Spent with Patient: Total time spent is greater than 50% in coordination of care (as documented) at patient's floor/unit and/or counseling patient: Coding Level of Care Code 46335 SUB INP/OBS CARE 2/35MIN Diagnoses Closed displaced intertrochanteric fracture of left femur, initial encounter S72.142A Encounter type: initial encounter Fracture type: closed Fracture alignment: displaced Abnormal EKG R94.31 Dementia F03.90 HTN (hypertension) I10 Anxiety F41.9 (1) Intertrochanteric fracture of left hip Encounter type: initial encounter Fracture type: closed Fracture alignment: displaced Qualified Code(s): S72.142A - Displaced intertrochanteric fracture of left femur, initial encounter for closed fracture
[2023-04-27] MEDS: ACETAMINOPHEN 500 MG TAB PO SCH (19:57)
[2023-04-27] MEDS: FAMOTIDINE 40 MG TABLET PO SCH (20:01)
[2023-04-27] MEDS: ATORVASTATIN 10 MG TAB PO SCH (20:01)
[2023-04-27] MEDS: LATANOPROST 0.005% OP SOLN 2.5 ML BTL OPB SCH (20:02)
[2023-04-27] MEDS: ESCITALOPRAM OXALATE ORAL SOLN 5 MG/5 ML PO SCH (20:02)
[2023-04-27] MEDS: DONEPEZIL HCL 5 MG TAB PO SCH (20:02)
[2023-04-28] MEDS: POLYETHYLENE (MIRALAX) 17 GM PACK PO SCH ×3 (05:13→18:37)
--- NOTE | 2023-04-28 07:40 | Surgery Progress Note ---
Date of Service April 28, 2023 Assessment & Plan (1) Intertrochanteric fracture of left hip: Plan: 83-year-old female postop day 3 from IM nailing of a left inotrope fracture. Orthopedically she is doing well and stable. Plan: 1. DVT prophylaxis. Would recommend thigh-high teds, SCDs, baby aspirin twice a day for 6 weeks. 2. PT/OT. She can fully weight-bear as tolerated. 3. Pain control. Doing okay with current pain regimen. Recommend sticking to Tylenol and limit narcotics to avoid confusion. 4. Medical management as per the medicine service 5. Disposition. She is orthopedically okay for discharge anytime medically stable. I did see him back 2 to 3 weeks out from surgery date. Any orthopedic questions can be directly [phone]. Admission and Anticipated Discharge Date Admission Date: April 24, 2023 Subjective 83-year-old female postop day 3 from IM nailing of a left intertrochanteric fracture. No new complaints today. Denies any significant pain. Physical Exam Physical Exam: Frail elderly female. Is lying in bed and appears to be resting comfortably. She denies any significant pain. Examination of the hip reveals the dressing be clean dry and intact. Leg is well aligned. She is neurologically stable. Results & Data Vital Signs (Past 12 Hours) Vital Signs Temp Pulse Resp BP BP Pulse Ox O2 Del Method 04/28/23 07:05 36.6 C 66 16 128/77 97 Room Air 04/27/23 23:17 36.7 C 72 16 128/81 97 Room Air 04/27/23 19:53 36.4 C L 74 20 113/68 98 Room Air Laboratory Results None PG Care Time/CCT Total # of Minutes Spent Total Time Spent with Patient: Total time spent is greater than 50% in coordination of care (as documented) at patient's floor/unit and/or counseling patient: Coding Level of Care Code 02678 Post Operative Follow-Up Diagnoses Closed displaced intertrochanteric fracture of left femur, initial encounter S72.142A Encounter type: initial encounter Fracture type: closed Fracture alignment: displaced (1) Intertrochanteric fracture of left hip Encounter type: initial encounter Fracture type: closed Fracture alignment: displaced Qualified Code(s): S72.142A - Displaced intertrochanteric fracture of left femur, initial encounter for closed fracture
[2023-04-28] MEDS: DORZOLAMIDE/TIMOLOL 22.3/6.8MG/ML 10 ML BTL OPB SCH ×2 (10:28→21:25)
[2023-04-28] MEDS: ASPIRIN 81 MG ECTAB PO SCH ×2 (10:31→21:22)
[2023-04-28] MEDS: lisinopril 10 MG TAB PO SCH (10:31)
[2023-04-28] MEDS: PANTOprazole 40 MG TAB PO SCH (10:31)
[2023-04-28] MEDS: DOCUSATE SODIUM 100 MG CAP PO SCH ×2 (10:31→21:31)
[2023-04-28] MEDS: POTASSIUM CHLORIDE 10 MEQ TABCR PO SCH (10:31)
[2023-04-28] MEDS: ACETAMINOPHEN 500 MG TAB PO PRN ×2 (10:32→18:37)
[2023-04-28] MEDS: PSYLLIUM or GUAR GUM FIBER POWDER PACKET PO SCH (10:32)
[2023-04-28] MEDS: CHOLECALCIFEROL 5,000 UNITS 125 MCG TAB PO SCH (10:32)
[2023-04-28] MEDS: MULTIVITAMIN TAB PO SCH (10:32)
--- NOTE | 2023-04-28 14:29 | Hospitalist Progress Note ---
Date of Service April 28, 2023 Assessment & Plan (1) Intertrochanteric fracture of left hip: Plan: COMMINUTED AND DISPLACED INTERTROCHANTERIC FRACTURE of left hip Osteoporotic hip fracture Consider outpatient DEXA scan on discharge and for primary care physician to consider osteoporosis treatment. Vitamin D level low started replacement 04/26 S/P Left Long Trochanteric Femoral Nail 04/25/23 Dr Aranda Patient does not have capacity to make her own decisions at this time. Consent was gained from her daughter Zoey South ([phone]) - number in chart is her old phone number. awaiting insurance review for rehab Pain control with acetaminophen PRN first-line, Dilaudid PRN second line Docusate 100 mg p.o. BID DVT prevention is asa 81 mg bid acute blood loss anemia not in need of transfusion constipation on miralax no bowel movements have resulted yet For cystitis, pansensitive E. coli, poa completed Rocephin x3 Days: (2) Abnormal EKG: Plan: Significant EKG changes since 2020 ST depression in anterior leads and T wave inversion in anterior lateral leads. No chest pain or shortness of breath to suggest acute coronary syndrome, troponin normal (3) Dementia: Plan: Continue donepezil 5 mg p.o. QPM Patient does not appear to have capacity to make her own medical decisions at this time Daughter at the bedside endorses [facility] or home with home health (4) HTN (hypertension): Plan: Lisinopril for blood pressure control (5) Anxiety: Plan: Continue Lexapro Plan VTE prophylaxis -aspirin twice daily GERD pantoprazole and famotidine h/o sleep apnea, refuses CPAP Disposition await rehab placement Admission and Anticipated Discharge Date Admission Date: April 24, 2023 Subjective pt doing well after intertroch nail on 04/25 Daughter was informed of denial by insurance for acute rehab placement will now initiate case management for subacute rehab placement' pain is present but controlled Physical Exam Physical Exam: Awake hard of hearing no focal complaints except for left hip pain Cardiac exam is regular Lungs are clear Wound pain seems to be improving daily wound is dressed but little surrounding induration Results & Data Results & Data Vital Signs (Past 12 Hours) Vital Signs Temp Pulse Resp BP Pulse Ox O2 Del Method 04/28/23 14:13 97.9 F 84 16 128/87 97 Room Air 04/28/23 07:05 97.9 F 66 16 128/77 97 Room Air PG Care Time/CCT Total # of Minutes Spent Total Time Spent with Patient: Total time spent is greater than 50% in coordination of care (as documented) at patient's floor/unit and/or counseling patient: Coding Level of Care Code 23513 SUB INP/OBS CARE 2/35MIN Diagnoses Closed displaced intertrochanteric fracture of left femur, initial encounter S72.142A Encounter type: initial encounter Fracture type: closed Fracture alignment: displaced Abnormal EKG R94.31 Dementia F03.90 HTN (hypertension) I10 Anxiety F41.9 (1) Intertrochanteric fracture of left hip Encounter type: initial encounter Fracture type: closed Fracture alignment: displaced Qualified Code(s): S72.142A - Displaced intertrochanteric fracture of left femur, initial encounter for closed fracture
[2023-04-28] MEDS: LATANOPROST 0.005% OP SOLN 2.5 ML BTL OPB SCH (21:20)
[2023-04-28] MEDS: DONEPEZIL HCL 5 MG TAB PO SCH (21:23)
[2023-04-28] MEDS: ESCITALOPRAM OXALATE ORAL SOLN 5 MG/5 ML PO SCH (21:23)
[2023-04-28] MEDS: FAMOTIDINE 40 MG TABLET PO SCH (21:23)
[2023-04-28] MEDS: ATORVASTATIN 10 MG TAB PO SCH (21:24)
[2023-04-28] MEDS: ACETAMINOPHEN 500 MG TAB PO SCH (21:31)
[2023-04-29] MEDS: POLYETHYLENE (MIRALAX) 17 GM PACK PO SCH ×4 (00:05→18:17)
[2023-04-29 07:11] LABS: Hematocrit (blood only) 29.3 % (37.0-47.0); Hemoglobin 9.4 g/dl (12.0-16.0); Mean Corpuscular Hemoglobin 29.4 pg (25.0-34.0); Mean Corpuscular Hgb Conc 32.1 g/dL (32.0-36.0); Mean Corpuscular Volume 91.6 fL (80.0-100.0); Mean Platelet Volume 10.5 fL (9.4-12.4); Platelet Count 252 K/uL (130-400); RDW Standard Deviation 42.7 fL (36.4-46.3); White Blood Count 6.37 K/ul (4.8-10.8)
[2023-04-29 07:22] LABS: Calcium 8.4 mg/dl (8.6-10.3); Potassium 3.9 mmol/L (3.5-5.1)
[2023-04-29 07:28] LABS: Creatinine Clr Calc Pharmacy 77.8 ml/min; Est GFR (African American) 110.9 ml/min; Est GFR (Non-African American) 95.6 ml/min
--- NOTE | 2023-04-29 08:04 | Surgery Progress Note ---
Date of Service April 29, 2023 Assessment & Plan (1) Intertrochanteric fracture of left hip: Plan: 83-year-old female with underlying dementia postop day 4 from IM nailing of a left inotrope fracture. Orthopedically she is doing well. She was a bit more awake alert and appropriate this morning. Pain appears controlled. Plan: 1. DVT prophylaxis including thigh-high teds, SCDs, aspirin twice a day. 2. PT/OT. She can fully weight-bear as tolerated left leg. 3. Pain control seems to be doing okay with current pain regimen. 4. Medical management as per the medicine service. 5. Disposition she is orthopedically okay for discharge anytime medically stable. I need to see her back 2 to 3 weeks out from surgery date. Any orthopedic questions can direct me [phone]. Admission and Anticipated Discharge Date Admission Date: April 24, 2023 Subjective 83-year-old female postop day 4 from IM nailing of the left inotrope fracture. She is doing okay. She denies any significant pain particular if she is not moving around. She is more awake and alert and responsive this morning. She denies any pain while lying in bed. Physical Exam Physical Exam: Examination was a frail elderly female. She responds to all commands. Examination of the left hip and the leg reveals the dressing be clean dry and intact. Leg is well aligned patient dorsiflex and plantarflex her foot appropriately. Results & Data Vital Signs (Past 12 Hours) Vital Signs Temp Pulse Resp BP Pulse Ox O2 Del Method 04/29/23 07:00 36.5 C 74 16 156/84 H 97 Room Air 04/28/23 21:17 36.2 C L 100 H 14 135/88 100 Room Air Laboratory Results Hemoglobin 9.4. Hematocrit 29.3. Electrolytes are stable. PG Care Time/CCT Total # of Minutes Spent Total Time Spent with Patient: Total time spent is greater than 50% in coordination of care (as documented) at patient's floor/unit and/or counseling patient: Coding Level of Care Code 16072 Post Operative Follow-Up Diagnoses Closed displaced intertrochanteric fracture of left femur, initial encounter S72.142A Encounter type: initial encounter Fracture type: closed Fracture alignment: displaced (1) Intertrochanteric fracture of left hip Encounter type: initial encounter Fracture type: closed Fracture alignment: displaced Qualified Code(s): S72.142A - Displaced intertrochanteric fracture of left femur, initial encounter for closed fracture
[2023-04-29] MEDS: lisinopril 10 MG TAB PO SCH (08:38)
[2023-04-29] MEDS: ASPIRIN 81 MG ECTAB PO SCH ×2 (08:38→22:03)
[2023-04-29] MEDS: MULTIVITAMIN TAB PO SCH (08:38)
[2023-04-29] MEDS: CHOLECALCIFEROL 5,000 UNITS 125 MCG TAB PO SCH (08:38)
[2023-04-29] MEDS: PANTOprazole 40 MG TAB PO SCH (08:38)
[2023-04-29] MEDS: PSYLLIUM or GUAR GUM FIBER POWDER PACKET PO SCH (08:39)
[2023-04-29] MEDS: DORZOLAMIDE/TIMOLOL 22.3/6.8MG/ML 10 ML BTL OPB SCH ×2 (08:39→22:04)
[2023-04-29] MEDS: POTASSIUM CHLORIDE 10 MEQ TABCR PO SCH (08:41)
[2023-04-29] MEDS: ACETAMINOPHEN 500 MG TAB PO PRN (08:41)
[2023-04-29] MEDS: DOCUSATE SODIUM 100 MG CAP PO SCH ×2 (08:41→22:17)
[2023-04-29] MEDS ORDERED: traMADol HCL 50 MG TABLET PO PRN (12:01)
[2023-04-29] MEDS ORDERED: traMADol HCL 50 MG TABLET PO STA (12:01)
--- NOTE | 2023-04-29 13:18 | Hospitalist Progress Note ---
Date of Service April 29, 2023 Assessment & Plan (1) Intertrochanteric fracture of left hip: Plan: COMMINUTED AND DISPLACED INTERTROCHANTERIC FRACTURE of left hip Osteoporotic hip fracture Consider outpatient DEXA scan on discharge and for primary care physician to consider osteoporosis treatment. Vitamin D level low started replacement 04/26 S/P Left Long Trochanteric Femoral Nail 04/25/23 Dr Aranda Patient does not have capacity to make her own decisions at this time. Consent was gained from her daughter Zoey South ([phone]) - number in chart is her old phone number. awaiting insurance review for rehab, pt is moving poorly will need lots of enco uragement Pain control with acetaminophen PRN first-line, adding tramadol second line, alway have parenteral dilaudid third line Docusate 100 mg p.o. BID DVT prevention is asa 81 mg bid acute blood loss anemia not in need of transfusion constipation on miralax no bowel movements have resulted yet For cystitis, pansensitive E. coli, poa completed Rocephin x3 Days: (2) Abnormal EKG: Plan: Significant EKG changes since 2020 ST depression in anterior leads and T wave inversion in anterior lateral leads. No chest pain or shortness of breath to suggest acute coronary syndrome, troponin normal (3) Dementia: Plan: Continue donepezil 5 mg p.o. QPM Patient does not appear to have capacity to make her own medical decisions at this time Daughter at the bedside endorses [facility] or home with home health (4) HTN (hypertension): Plan: Lisinopril for blood pressure control (5) Anxiety: Plan: Continue Lexapro Plan VTE prophylaxis -aspirin twice daily GERD pantoprazole and famotidine h/o sleep apnea, refuses CPAP Disposition await rehab placement daughter updated at bedside Admission and Anticipated Discharge Date Admission Date: April 24, 2023 Subjective pt fair well after intertroch nail on 04/25 Daughter was informed of denial by insurance for acute rehab placement will now initiate case management for subacute rehab placement' observed with therapy and not moving well, c/o pain that is breakthru from tylenol Physical Exam Physical Exam: Awake hard of hearing no focal complaints except for left hip pain Cardiac exam is regular Lungs are clear Results & Data Results & Data Vital Signs (Past 12 Hours) Vital Signs Temp Pulse Resp BP Pulse Ox O2 Del Method 04/29/23 07:00 97.7 F 74 16 156/84 H 97 Room Air Laboratory Results Reviewed CBC Reviewed chemistry PG Care Time/CCT Total # of Minutes Spent Total Time Spent with Patient: Total time spent is greater than 50% in coordination of care (as documented) at patient's floor/unit and/or counseling patient: Coding Level of Care Code 33176 SUB INP/OBS CARE 2/35MIN Diagnoses Closed displaced intertrochanteric fracture of left femur, initial encounter S72.142A Encounter type: initial encounter Fracture type: closed Fracture alignment: displaced Abnormal EKG R94.31 Dementia F03.90 HTN (hypertension) I10 Anxiety F41.9 (1) Intertrochanteric fracture of left hip Encounter type: initial encounter Fracture type: closed Fracture alignment: displaced Qualified Code(s): S72.142A - Displaced intertrochanteric fracture of left femur, initial encounter for closed fracture
[2023-04-29] MEDS: FAMOTIDINE 40 MG TABLET PO SCH (22:02)
[2023-04-29] MEDS: ATORVASTATIN 10 MG TAB PO SCH (22:02)
[2023-04-29] MEDS: LATANOPROST 0.005% OP SOLN 2.5 ML BTL OPB SCH (22:04)
[2023-04-29] MEDS: DONEPEZIL HCL 5 MG TAB PO SCH (22:04)
[2023-04-29] MEDS: ACETAMINOPHEN 500 MG TAB PO SCH (22:18)
[2023-04-29] MEDS: ESCITALOPRAM OXALATE ORAL SOLN 5 MG/5 ML PO SCH (22:20)
[2023-04-30] MEDS: POLYETHYLENE (MIRALAX) 17 GM PACK PO SCH ×4 (00:29→17:08)
[2023-04-30] MEDS: MULTIVITAMIN TAB PO SCH (08:49)
[2023-04-30] MEDS: PANTOprazole 40 MG TAB PO SCH (08:49)
[2023-04-30] MEDS: CHOLECALCIFEROL 5,000 UNITS 125 MCG TAB PO SCH (08:50)
[2023-04-30] MEDS: lisinopril 10 MG TAB PO SCH (08:50)
[2023-04-30] MEDS: ASPIRIN 81 MG ECTAB PO SCH ×2 (08:50→22:27)
[2023-04-30] MEDS: PSYLLIUM or GUAR GUM FIBER POWDER PACKET PO SCH (08:50)
[2023-04-30] MEDS: DORZOLAMIDE/TIMOLOL 22.3/6.8MG/ML 10 ML BTL OPB SCH ×2 (08:51→22:28)
[2023-04-30] MEDS: DOCUSATE SODIUM 100 MG CAP PO SCH ×2 (08:56→22:29)
[2023-04-30] MEDS: POTASSIUM CHLORIDE 10 MEQ TABCR PO SCH (08:56)
[2023-04-30] MEDS: ACETAMINOPHEN 500 MG TAB PO PRN ×2 (08:56→17:11)
--- NOTE | 2023-04-30 16:07 | Hospitalist Progress Note ---
Date of Service April 30, 2023 Assessment & Plan (1) Intertrochanteric fracture of left hip: Plan: COMMINUTED AND DISPLACED INTERTROCHANTERIC FRACTURE of left hip Osteoporotic hip fracture Consider outpatient DEXA scan on discharge and for primary care physician to consider osteoporosis treatment. Vitamin D level low started replacement 04/26 S/P Left Long Trochanteric Femoral Nail 04/25/23 Dr Aranda Patient does not have capacity to make her own decisions due to significant dementia. Consent was gained from her daughter Zoey South ([phone]) - number in chart is her old phone number. Pain control with acetaminophen PRN first-line, adding tramadol second line Docusate 100 mg p.o. BID DVT prevention is asa 81 mg bid acute blood loss anemia not in need of transfusion, added every other day iron supplement starting 05/02 once constipation improved constipation on miralax no bowel movements have resulted yet, added 2 tabs of senna at bedtime For cystitis, pansensitive E. coli, poa completed Rocephin x3 Days (2) Abnormal EKG: Plan: Significant EKG changes since 2020 ST depression in anterior leads and T wave inversion in anterior lateral leads. No chest pain or shortness of breath to suggest acute coronary syndrome, troponin normal (3) Dementia: Plan: Continue donepezil 5 mg p.o. QPM Patient does not appear to have capacity to make her own medical decisions at this time (4) HTN (hypertension): Plan: Lisinopril for blood pressure control (5) Anxiety: Plan: Continue Lexapro Plan VTE prophylaxis -aspirin twice daily GERD pantoprazole and famotidine h/o sleep apnea, refuses CPAP Disposition await SNF daughter updated at bedside 04/30 Admission and Anticipated Discharge Date Admission Date: April 24, 2023 Subjective She is pleasantly confused, denies left hip pain, chronically poor appetite but ate a little bit of lunch, denies having had a bowel movement since surgery, I updated her daughter who is sitting at bedside Physical Exam 2 Physical Exam: PHYSICAL EXAMINATION Last 24h vital signs reviewed, see documentation in flowsheet General: Elderly woman sitting in bed eating lunch comfortable appearing, no distress HEENT: Normocephalic, atraumatic, pupils round and equal, sclerae anicteric, no conjunctival injection, moist mucus membranes Lungs: Normal respiratory effort. Clear to auscultation bilaterally. No RRW Heart: Regular rate and rhythm, no murmurs. No JVD Abdomen: Soft, nontender, nondistended. Bowel sounds present. Extremities: Warm, dry, well-perfused. No extremity edema. Left hip dressing is clean dry and intact, no left leg swelling Skin: Warm dry no rashes Neuro: Alert and oriented x 1, answers basic questions, face symmetric, moves 4 extremities well Psych: Normal affect and behavior Results & Data Results & Data Vital Signs (Past 12 Hours) Vital Signs Temp Pulse Resp BP Pulse Ox O2 Del Method 04/30/23 09:21 36.7 C 81 18 134/81 96 Room Air Laboratory Results 04/29/23 06:17 04/29/23 06:17 PG Care Time/CCT Total # of Minutes Spent Total Time Spent with Patient: Total time spent is greater than 50% in coordination of care (as documented) at patient's floor/unit and/or counseling patient: Coding Level of Care Code 30988 SUB INP/OBS CARE 2/35MIN Diagnoses Closed displaced intertrochanteric fracture of left femur, initial encounter S72.142A Encounter type: initial encounter Fracture type: closed Fracture alignment: displaced Abnormal EKG R94.31 Dementia F03.90 HTN (hypertension) I10 Anxiety F41.9 (1) Intertrochanteric fracture of left hip Encounter type: initial encounter Fracture type: closed Fracture alignment: displaced Qualified Code(s): S72.142A - Displaced intertrochanteric fracture of left femur, initial encounter for closed fracture
[2023-04-30] MEDS: SENNA 8.6 MG TAB PO SCH (17:12)
[2023-04-30] MEDS: FAMOTIDINE 40 MG TABLET PO SCH (22:27)
[2023-04-30] MEDS: ACETAMINOPHEN 500 MG TAB PO SCH (22:27)
[2023-04-30] MEDS: DONEPEZIL HCL 5 MG TAB PO SCH (22:28)
[2023-04-30] MEDS: ATORVASTATIN 10 MG TAB PO SCH (22:28)
[2023-04-30] MEDS: LATANOPROST 0.005% OP SOLN 2.5 ML BTL OPB SCH (22:28)
[2023-04-30] MEDS: ESCITALOPRAM OXALATE ORAL SOLN 5 MG/5 ML PO SCH (22:28)
[2023-05-01] MEDS: POLYETHYLENE (MIRALAX) 17 GM PACK PO SCH ×3 (00:03→11:51)
[2023-05-01] MEDS: lisinopril 10 MG TAB PO SCH (09:27)
[2023-05-01] MEDS: SENNA 8.6 MG TAB PO SCH (09:28)
[2023-05-01] MEDS: PANTOprazole 40 MG TAB PO SCH (09:28)
[2023-05-01] MEDS: CHOLECALCIFEROL 5,000 UNITS 125 MCG TAB PO SCH (09:28)
[2023-05-01] MEDS: ASPIRIN 81 MG ECTAB PO SCH (09:28)
[2023-05-01] MEDS: MULTIVITAMIN TAB PO SCH (09:29)
[2023-05-01] MEDS: POTASSIUM CHLORIDE 10 MEQ TABCR PO SCH (09:29)
[2023-05-01] MEDS: PSYLLIUM or GUAR GUM FIBER POWDER PACKET PO SCH (09:29)
[2023-05-01] MEDS: DORZOLAMIDE/TIMOLOL 22.3/6.8MG/ML 10 ML BTL OPB SCH (09:30)
[2023-05-01] MEDS: DOCUSATE SODIUM 100 MG CAP PO SCH (09:36)
--- NOTE | 2023-05-01 12:30 | Discharge Summary ---
Date of Service May 01, 2023 Admission HPI Per Admitting Provider Elsie Clayton is an 83-year-old female who presents to the ER with left hip pain following a fall landing onto her left side. Her family at bedside have differing views on her baseline mobility with her son reporting she barely gets out of bed and has a decreased appetite since the summer. Her daughter tells me she tries to get her out of bed and she does take her for walks but the patient currently complains it is too cold. At baseline she is able to walk but appears to lack the motivation to do so. She is generally unbalanced when walking and is supposed to use a walker however has dementia and generally chooses not to to. She reports she has a lack of appetite but denies any dysphagia, odynophagia, nausea, vomiting, abdominal pain, diarrhea, constipation, melena or hematochezia. The patient is unable to give me any history regarding her fall today. History taken from family at bedside. Earlier today she became unbalanced without using her walker and fell onto her left side. She did not hit her head with no loss of consciousness and is at her baseline cognition with her dementia. She was at her baseline prior to the fall and unable to weight bear and complaining of left hip pain since the fall. She denies any other extremity pains. Principal Diagnosis osteoporotic left hip fracture caused by mechanical fall Discharge Exam PHYSICAL EXAMINATION Last 24h vital signs reviewed, see documentation in flowsheet Exam unchanged 05/01: General: Elderly woman sitting in bed awake watching TV, NAD HEENT: Normocephalic, atraumatic, pupils round and equal, sclerae anicteric, no conjunctival injection, moist mucus membranes Lungs: Normal respiratory effort. Clear to auscultation bilaterally. No RRW Heart: Regular rate and rhythm, no murmurs. No JVD Abdomen: Soft, nontender, nondistended. Bowel sounds present. Extremities: Warm, dry, well-perfused. No extremity edema. Left hip dressing is clean dry and intact, no left leg swelling Skin: Warm dry no rashes Neuro: Alert and oriented x 1, answers basic questions, face symmetric, moves 4 extremities well Psych: Normal affect and behavior Discharge Data Allergies Allergy/AdvReac Type Severity Reaction Status Date / Time soap Allergy Rash Verified 04/29/23 12:04 Consultations 04/24/23 13:58 ED Decision to Admit Stat 04/24/23 14:10 Consult Orthopedic Surgery Routine Procedures Performed Operation Date: 04/25/23 07:00 Actual Procedures p Left Long Trochanteric Femoral Nail(Left) - Romulo Aranda MD Ordered Studies 04/25/23 10:00 FL femur LT 2V Routine Chest X-Ray 04/24/23 00:00 XR chest 1V not portable CLINICAL HISTORY: LT HIP FX FALL COMPARISON STUDY: Chest CT December 13, 2017. Chest radiograph March 28, 2021. FINDINGS: Incidental note is made of an old, healed proximal left humeral fracture. There is no pneumothorax or pleural effusion. There is no consolidation. Exam is mildly compromised given difficulty positioning. Cardiomediastinal silhouette is stable. There is no evidence for pulmonary edema. IMPRESSION: No acute cardiopulmonary findings. ACT 112: Negative or not required by law. Electronically signed by: Micky Villarreal M.D. 04/24/2023 12:44 PM Hip/Pelvis X-Ray 04/24/23 11:37 XR hip LT 2V w pelvis CLINICAL HISTORY: pain after fall. Left hip pain. COMPARISON STUDY: Left hip 06/13/2020. FINDINGS: Comminuted and displaced intertrochanteric fracture within the proximal left femur. No dislocation. The visualized pelvic bones are intact. The bones are osteopenic. No fractures within the right hip. IMPRESSION: Comminuted and displaced intertrochanteric fracture within the proximal left femur. ACT 112: Negative or not required by law. Electronically signed by: Orlando Guadarrama M.D. 04/24/2023 12:29 PM Femur X-Ray 04/25/23 10:00 FL femur LT 2V CLINICAL HISTORY: LT TROCH NAIL. Left femoral fracture. COMPARISON STUDY: Left hip 04/24/2023. FLUOROSCOPY TIME: 44 seconds FLUOROSCOPY IMAGES: 4 Ka,r: 7.5 mGy FINDINGS: Status post internal fixation of the left femoral intertrochanteric fracture with a femoral intramedullary ronaldo and interlocking femoral neck pin. The hardware appears intact. Alignment is near-anatomic. IMPRESSION: Fluoroscopic assistance as above. ACT 112: Negative or not required by law. Electronically signed by: Orlando Guadarrama M.D. 04/25/2023 12:47 PM 04/29/23 06:17 04/29/23 06:17 Hospital Course (1) Intertrochanteric fracture of left hip: COMMINUTED AND DISPLACED INTERTROCHANTERIC FRACTURE of left hip Osteoporotic hip fracture Consider outpatient DEXA scan on discharge and for primary care physician to consider osteoporosis treatment. Vitamin D level low started replacement 04/26 S/P Left Long Trochanteric Femoral Nail 04/25/23 Dr Aranda Patient does not have capacity to make her own decisions due to significant dementia. Consent was gained from her daughter Zoey South ([phone]) - number in chart is her old phone number. Pain control with acetaminophen PRN, tolerating well DVT prevention is asa 81 mg bid acute blood loss anemia not in need of transfusion, added every other day iron supplement x 4 weeks then recheck CBC and/or iron studies for improvement in anemia constipation on miralax, senna 2 tabs daily given starting 04/30, dulcolax supp given 05/01 - continue bowel regimen until resolution For cystitis, urine culture grew pansensitive E. coli, completed treatment with Rocephin x3 Days (2) Abnormal EKG: Significant EKG changes since 2020 ST depression in anterior leads and T wave inversion in anterior lateral leads. No chest pain or shortness of breath to suggest acute coronary syndrome, troponin normal (3) Dementia: Continue donepezil 5 mg p.o. QPM Daughter is medical decision maker (4) HTN (hypertension): Lisinopril for blood pressure control (5) Anxiety: Continue Lexapro Plan GERD pantoprazole and famotidine h/o sleep apnea, refuses CPAP Disposition: SNF for subacute rehab daughter updated at bedside 04/30 Total Time Total Time Spent Total Time Spent (In Minutes): I spent 40 minutes coordinating care for discharge including review of vital signs chart notes and ortho recommendations, examining patient, discussion with outdoor emergency care technician, writing discharge orders and prescriptions, and documentation. Discharge Plan Discharge Items Patient Disposition: Transfer [facility] Reason For Visit: COMMINUTED AND DISPLACED INTERTROCHANTERIC FRACTUR Discharge Diagnosis: IM Nailing of Left Hip Fracture Condition on Discharge: Fair Activity: Resume your previous activity Weightbearing: Full weightbearing Non-emergency contact: Primary Care Provider and Surgeon Call non-emergency contact if: you have a fever, your wound has increased redness and your wound has increased drainage Follow-up/Referrals: Mikayla Luna DO [Primary Care Provider] - [facility] [Non-Staff] - Romulo Aranda MD [Physician] - (Orthopedic follow-up 2-3 weeks from surgery date) Diet: Regular Addtl Attending Provider Instructions: Left hip fracture Change dressing left hip as needed Follow up with Dr. Aranda - ortho - 2-3 weeks Full weightbearing PT and OT evaluate and treat Pain control - has been using acetaminophen only Constipation - bowel regimen increased 04/30 DVT prophylaxis - ASA 81 mg bid Pending Studies at Discharge: No Stand-Alone Forms: My [facility] Skilled Items Patient informed of condition?: Yes DNR: No Discharge Level of Care: Skilled Communicable Disease: No Discharge Prognosis: Improving Lines: None Urinary Catheter: No Medications and DC Order Prescriptions: New bisacodyl 10 mg Suppository 10 mg [place] DAILY PRN (Reason: constipation) Qty: 12 0RF aspirin 81 mg Tablet,Delayed Release (Dr/Ec) 81 mg PO BID 42 Days Qty: 0 0RF polyethylene glycol 3350 [Miralax] 17 gram Powder In Packet 17 g PO BID Qty: 0 0RF cholecalciferol (vitamin D3) 125 mcg (5,000 unit) Tablet 5,000 unit PO QAM Qty: 0 0RF ferrous sulfate 325 mg (65 mg iron) Tablet,Delayed Release (Dr/Ec) 325 mg PO Q48H 30 Days Qty: 1 0RF sennosides [Senokot] 8.6 mg Tablet 17.2 mg PO QAM Qty: 0 0RF acetaminophen [Tylenol Extra Strength] 500 mg Tablet 1,000 mg PO Q8H PRN (Reason: fever or pain) Qty: 0 0RF Rx Instructions: Not to exceed 3000 mg acetaminophen per 24h Continued donepezil 5 mg tablet 5 mg PO QPM Qty: 30 potassium chloride 10 mEq tablet,ER particles/crystals 10 meq PO DAILY latanoprost 0.005 % drops 1 drp OPB HS atorvastatin 10 mg tablet 5 mg PO HS pantoprazole 40 mg tablet,delayed release (DR/EC) 40 mg PO DAILY dorzolamide-timolol 22.3-6.8 mg/mL drops 1 drp OPB BID famotidine 40 mg tablet 40 mg PO QPM lisinopril 10 mg tablet 10 mg PO DAILY escitalopram oxalate 5 mg tablet 2.5 mg PO HS multivitamin Tablet 1 tab PO DAILY acetaminophen [Tylenol Extra Strength] 500 mg Tablet 1,000 mg PO HS Metamucil 3.4 gram/5.4 gram Powder 1 tsp PO DAILY Discharge Orders: Discharge Order (Routine); Ordered 05/01/23 Ordered By: Rosy Powell Admission Data Admit Date/Time: 04/24/23 14:08 Attending Provider: Rosy Powell Admit Provider: Edgar Comer Primary Care Provider: Mikayla Luna Other Providers: [facility]; Edgar Comer; David Rivas Coding Level of Care Code 45469 INP/OBS DISCH >30 MIN Diagnoses Closed displaced intertrochanteric fracture of left femur, initial encounter S72.142A Encounter type: initial encounter Fracture type: closed Fracture alignment: displaced Abnormal EKG R94.31 Dementia F03.90 HTN (hypertension) I10 Anxiety F41.9
--- NOTE | 2023-05-01 14:55 | Surgery Progress Note ---
Date of Service May 01, 2023 Assessment & Plan (1) Intertrochanteric fracture of left hip: Plan: 83-year-old female now 6 days out from IM nailing of left inotrope fracture. Orthopedically she is doing well. The pain seems to be reasonably controlled. She is neurologically intact. Plan: 1. DVT prophylaxis including thigh-high teds, SCDs, would recommend a baby aspirin twice a day for 6 weeks from surgery. 2. PT OT. She can fully weight-bear on the left leg. 3. Pain control seems to be doing okay with current pain regimen. 4. Medical management as per the medicine service. 5. Disposition she is orthopedically okay for discharge anytime medically stable. I did see her back 2 to 3 weeks from her surgery date. Any orthopedic questions can recommend [phone]. Admission and Anticipated Discharge Date Admission Date: April 24, 2023 Subjective 83-year-old female postop day 6 from IM nailing of left inotrope fracture. She seems more more awake as time goes on and appropriate. She denies any pain while just lying in bed. Moderate amount of pain when mobilizing to a chair. No other complaints. No chest pain. Physical Exam Physical Exam: Physical examination was a pleasant elderly frail female. Sitting up in bed. She looks reasonably comfortable. Examination of left hip and leg reveals the leg to be well aligned. Dressings clean dry and intact there is no drainage. She can dorsiflex and plantarflex her foot appropriately. Results & Data Vital Signs (Past 12 Hours) Vital Signs Temp Pulse Resp BP Pulse Ox O2 Del Method 05/01/23 09:27 104 H 158/87 H 05/01/23 07:23 36.5 C 90 16 166/94 H 99 Room Air PG Care Time/CCT Total # of Minutes Spent Total Time Spent with Patient: Total time spent is greater than 50% in coordination of care (as documented) at patient's floor/unit and/or counseling patient: Coding Level of Care Code 99620 Post Operative Follow-Up Diagnoses Closed displaced intertrochanteric fracture of left femur, initial encounter S72.142A Encounter type: initial encounter Fracture type: closed Fracture alignment: displaced (1) Intertrochanteric fracture of left hip Encounter type: initial encounter Fracture type: closed Fracture alignment: displaced Qualified Code(s): S72.142A - Displaced intertrochanteric fracture of left femur, initial encounter for closed fracture
[2023-05-02] MEDS ORDERED: FERROUS SULFATE 325 MG TAB PO SCH (09:00)
== END 2023-05-01 15:44 | DRG 481 ==
LOC: ED 11:04 → EDINP 14:08 → SUATTDRO 14:08 → 2N 16:42 → 3W 04-27 23:12